=== PATIENT | male | born 1950 | race Caucasian/White ===

== ENCOUNTER 2016-09-05 14:42 | Inpatient (IN) ==
[2016-09-05 17:19] LABS: Basophils % 0.4 %; Eosinophils % 0.1 %; Hematocrit 35.8 % (37.5-50.1); Hemoglobin 11.7 g/dL (12.9-16.9); Immature Granulocytes % 0.3 % (0-4); Lymphocytes % 14.4 %; Mean Corpuscular HGB Conc 32.7 g/dL (31.6-35.5); Mean Corpuscular Hemoglobin 30.9 pg (28.0-33.3); Mean Corpuscular Volume 94.5 fL (83.0-100.0); Mean Platelet Volume 11.9 fL (9.4-12.4); Monocytes # 0.3 K/mcL (0.0-1.3); Monocytes % 4.3 %; Neutrophils # 5.7 K/mcL (1.6-8.9); Platelet Count 157 K/mcL (140-400); Red Blood Count 3.79 M/mcL (4.19-5.50); Red Cell Distribution Width 23.5 % (11.5-14.5); Segmented Neutrophils % 80.5 %
[2016-09-05 17:42] LABS: Calcium 9.9 mg/dL (8.6-10.8)
--- NOTE | 2016-09-05 17:48 | Emergency Department Note ---
Disposition Clinical Impression: End stage renal disease, Hyponatremia, Metabolic acidosis Fluid overload Qualifiers: Hypervolemia type: other Qualified Code(s): E87.79 - Other fluid overload Disposition: Admitted As Inpatient Condition: Good Time of Disposition: 18:42 General Adult HPI - General Chief complaint: ED Shortness of Breath/Dyspnea Stated complaint: Edema legs,groin swelling,CARY Time Seen by Provider: 09/05/16 16:29 Source: patient Limitations: no limitations Nursing Notes Reviewed: Yes Vital Signs Reviewed: Yes - History of Present Illness HPI Narrative: 65-year-old male with a history of stage IV CKD, chronic metabolic acidosis, hypertension, COPD presents to the ED with a chief complaint of lower extremity swelling. He states this has been progressive over the last week. 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 He denies any pain in the legs only swelling. No history of DVT or PE. He denies any history of CAD or congestive heart failure. He denies any chest pain or shortness of breath. Denies any abdominal pain, nausea or vomiting. He has been urinating/ making urine. Denies any dysuria. Denies any lightheadedness or syncope. Denies any numbness, tingling or weakness. Pain Scale: 1 - Related Data Home Medications Medication Instructions Recorded Confirmed Guaifenesin [Mucinex] 600 mg PO 1-2XD PRN 10/07/15 09/05/16 Multivitamin [Multi-Day Vitamins] 1 tab PO DAILY 10/08/15 09/05/16 Acetaminophen [Tylenol] 650 mg PO Q6HR PRN 09/05/16 09/05/16 Amlodipine Besylate 10 mg PO DAILY PRN 09/05/16 09/05/16 Ipratropium/Albuterol Neb [Duoneb] 3 ml IH Q8HR PRN 09/05/16 09/05/16 Iron Polysaccharide Complex [Pro 180 mg PO BID 09/05/16 09/05/16 Fe] Loratadine [Claritin] 10 mg PO DAILY 09/05/16 09/05/16 Potassium Chloride [K-Tab ER] 20 meq PO BID 09/05/16 09/05/16 Ranitidine HCl [Zantac] 150 mg PO HS 09/05/16 09/05/16 Sodium Chloride 1 gm PO TID 09/05/16 09/05/16 Previous Rx's Medication Instructions Recorded Calcium Acetate [Phos-LO] 667 mg PO TIDWM 30 Days 10/16/15 Sodium Bicarbonate 650 mg PO BID 30 Days 10/16/15 Allopurinol [Zyloprim 100 MG] 100 mg PO DAILY #30 tablet 10/20/15 Cholecalciferol (D-3) [Vitamin D] 2,000 unit PO DAILY tablet 10/20/15 Folic Acid 1 mg PO DAILY tablet 10/20/15 Allergies Allergy/AdvReac Type Severity Reaction Status Date / Time codeine Allergy Hives Verified 10/07/15 05:44 Penicillins Allergy Hives Verified 10/07/15 05:44 All systems ED: reviewed and negative except as stated. Constitutional: Denies: fever Cardiovascular: Denies: chest pain, dyspnea on exertion Respiratory: Denies: cough, dyspnea Gastrointestinal: Denies: abdominal pain, nausea, vomiting Musculoskeletal: Denies: back pain Neurological: Denies: headache, weakness, numbness Past Medical History - Past Medical History Medical history: Reports: COPD, hypertension, renal disease, other Surgical history: Reports: no surgical history Psychiatric history: Reports: no psych history - Social History Smoking Status: Current every day smoker Smokeless Tobacco Status: No Alcohol use: Reports: heavy, recent Drug use: Reports: none Physical Exam General: Appears well, alert and oriented x 3 Cardiovascular: Regular rate and rhythm. S1, S2. No murmurs, rubs or gallops. Respiratory: Mild expiratory rhonchi but no S2 or distress. No wheezing Abdomen: Soft, nontender. No edema or swelling. Eyes: Conjunctiva clear HENT: No oral mucosal lesions. Moist mucous membranes Neuro: Alert and oriented 3, symmetric strength and sensation in lower extremities Musculoskeletal: No joint swelling Skin: No lesions. No diaphoresis. Normal turgor. Normal color Extremities: Bilateral lower extremity edema from the knee down. He has good capillary refill and pulses distally. He has no calf tenderness or asymmetry. There is no redness or signs of infection Psych: Appropriate - General Limitations: no limitations General appearance: alert, in no apparent distress Course Course Narrative: Presents to the emergency Department. Lower extremity edema. He essentially has no other symptoms above the waist such as chest pain or shortness of breath. No history of heart disease he has stage IV chronic kidney disease with recurrent hyponatremia and metabolic acidosis. On exam he has bilateral lower extremity edema, no rest for distress. Chest x-ray is clear and does not suggest failure nor does his history. He has worsening renal failure with a creatinine of 6.2 and a GFR of 11 which is as worse as it has ever been. I suspect fluid overload due to worsening renal failure. 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 Plan to admit the patient to the hospital for possible dialysis. He also has an elevated troponin at 0.18 which is difficult to interpret in the face of worsening renal failure. He denies any chest pain EKG shows sinus tachycardia with a rate of [address] depression in V5 and V6 but not significant. He has some Q waves in the anterior septal leads which do appear new. - Reevaluation(s) Reevaluation #1: Discussed with the on-call hospitalist, Rosa who accepts for admission no orders at this time Vital Signs Temperature 97.5 F L 09/05/16 14:44 Pulse Rate 113 09/05/16 14:44 Respiratory Rate 20 09/05/16 14:44 Blood Pressure 115/75 09/05/16 14:44 O2 Sat by Pulse Oximetry 100 09/05/16 14:44 Temperature 97.5 F L 09/05/16 14:44 Pulse Rate 102 09/05/16 18:29 Respiratory Rate 20 09/05/16 18:29 Blood Pressure 110/71 09/05/16 18:29 O2 Sat by Pulse Oximetry 95 09/05/16 18:29 Oxygen Delivery Oxygen Delivery Room Air Medical Decision Making - Lab Data Result diagrams: 09/05/16 16:54 09/05/16 16:54 Lab Results 09/05/16 09/05/16 09/05/16 Range/Units 16:54 16:54 16:54 WBC 7.1 (4.3-11.1) K/mcL RBC 3.79 L (4.19-5.50) M/mcL Hgb 11.7 L (12.9-16.9) g/dL Hct 35.8 L (37.5-50.1) % MCV 94.5 (83.0-100.0) fL MCH 30.9 (28.0-33.3) pg MCHC 32.7 (31.6-35.5) g/dL RDW 23.5 H (11.5-14.5) % Plt Count 157 (140-400) K/mcL MPV 11.9 (9.4-12.4) fL Immature Gran % 0.3 (0-4) % Seg Neutrophils % 80.5 % Lymphocytes % 14.4 % Monocytes % 4.3 % Eosinophils % 0.1 % Basophils % 0.4 % Neutrophils # 5.7 (1.6-8.9) K/mcL Lymphocytes # 1.0 (0.6-4.6) K/mcL Monocytes # 0.3 (0.0-1.3) K/mcL Eosinophils # 0.0 (0.0-0.6) K/mcL Basophils # 0.0 (0.0-0.2) K/mcL Platelet Estimate Normal (Normal) Anisocytosis 2+ A (Not Present) Sodium 130 L (136-145) mEq/L Potassium 4.0 (3.5-4.5) mEq/L Chloride 89 L (98-109) mEq/L Carbon Dioxide 16 L (19-29) mEq/L BUN 135 H (8-26) mg/dL Creatinine 6.22 H (0.72-1.25) mg/dL Est GFR ( Amer) 11 L (> 60) Est GFR (Non-Af Amer) 9 L (> 60) BUN/Creatinine Ratio 22 (6-26) Glucose 121 H (70-99) mg/dL Calculated Osmolality 315 H (280-300) Calcium 9.9 (8.6-10.8) mg/dL Troponin I 0.18 H* (0-0.03) ng/mL B-Natriuretic Peptide (0-100) pg/mL 09/05/16 Range/Units 16:54 WBC (4.3-11.1) K/mcL RBC (4.19-5.50) M/mcL Hgb (12.9-16.9) g/dL Hct (37.5-50.1) % MCV (83.0-100.0) fL MCH (28.0-33.3) pg MCHC (31.6-35.5) g/dL RDW (11.5-14.5) % Plt Count (140-400) K/mcL MPV (9.4-12.4) fL Immature Gran % (0-4) % Seg Neutrophils % % Lymphocytes % % Monocytes % % Eosinophils % % Basophils % % Neutrophils # (1.6-8.9) K/mcL Lymphocytes # (0.6-4.6) K/mcL Monocytes # (0.0-1.3) K/mcL Eosinophils # (0.0-0.6) K/mcL Basophils # (0.0-0.2) K/mcL Platelet Estimate (Normal) Anisocytosis (Not Present) Sodium (136-145) mEq/L Potassium (3.5-4.5) mEq/L Chloride (98-109) mEq/L Carbon Dioxide (19-29) mEq/L BUN (8-26) mg/dL Creatinine (0.72-1.25) mg/dL Est GFR ( Amer) (> 60) Est GFR (Non-Af Amer) (> 60) BUN/Creatinine Ratio (6-26) Glucose (70-99) mg/dL Calculated Osmolality (280-300) Calcium (8.6-10.8) mg/dL Troponin I (0-0.03) ng/mL B-Natriuretic Peptide > 5000 H (0-100) pg/mL Attestation Statement - Attestation Attestation: I examined this patient and my medical decision-making was reviewed with the VEGETABLE TIER/PA/Advanced Practice Nurse/Resident Physician. I agree with the documented findings, disposition and treatment plan as described except to the extent set forth below. 65-year-old male presents ED because of increasing swelling of her lower extremities. He has advancing renal failure and followed by Dr. Hobson. Over the recently he has had increasing swelling of his lower extremities that has become more painful. He also complains of generalized fatigue. No fevers. No chest pain. Mild exertional dyspnea. No productive cough. No abdominal pain. Pleasant male in no apparent distress. Oropharynx clear. Neck is supple. Chest is clear to auscultation bilaterally. Abdomen soft nondistended nontender. Extremities with 2+ any edema. Review function has further deteriorated. He has a serum bicarbonate of 16 consistent with metabolic acidosis. Spoke with Dr. Hobson and he requests the patient be admitted to the hospital for dialysis.
[2016-09-05 17:50] LABS: Anisocytosis 2+ (Not Present); Platelet Estimate Normal (Normal)
--- NOTE | 2016-09-05 19:07 | Internal Med History&Physical ---
Date of Encounter: 09/05/16 Time of Encounter: 19:07 Assessment and Plan (1) Acute worsening of stage 4 chronic kidney disease Current visit: Yes Status: Acute patient with a history of CKD stage 4 with average creatinine of 3.5 presents with worsening swelling with possible anasarca in the setting o doubling of his baseline creatinine, his equipment processor has been consulted for the possibility of dialysis inpatient, we will avoid nephrotoxins, renally dose all medications, follow BMP, will do a trial of diuresis meanwhile, we will also check an echo for LVEF and valvular architecture (2) HTN (hypertension) Current visit: Yes Status: Chronic hx of HTN on amlodipine, we will continue this medication with BP monitoring Qualifiers: Hypertension type: essential hypertension Qualified Code(s): I10 - Essential (primary) hypertension (3) COPD (chronic obstructive pulmonary disease) Current visit: Yes Status: Chronic stable, will do inhalers and nebs Qualifiers: COPD type: chronic bronchitis Chronic bronchitis type: simple Qualified Code(s): J41.0 - Simple chronic bronchitis (4) GERD (gastroesophageal reflux disease) Current visit: Yes Status: Chronic will continue ranitidine Qualifiers: Esophagitis presence: without esophagitis Qualified Code(s): K21.9 - Gastro -esophageal reflux disease without esophagitis Internal Medicine - H&P: HPI Chief complaint: lower extremity swelling Admitted From: Emergency Dept Plans for Post Hospital Care: Home History of present illness: Mr. Delcid is a 65 year old male with a history of CKD stage [address] Pierre's group comes in with worsening lower extremity swelling. He was in his usual state of health until about a week ago when he began to have lower extremity swelling that has been progressive, his leg feels heavy and in addition he has dyspnea and dyspnea on exertion. He also reports cough productive of clear sputum. His is sometimes unable to lie down flat at night and when he does so he keeps coughing. He reports poor appetite and reduced exercise tolerance alongside fatigue. He called his equipment processor's office today about the swelling which has involved his scrotal sac and penis and they could not get him in so they asked him to come to the ER. In the ER lab work showed worsened renal function. His last equipment processor visit was in July and they had discussed the possibility of dialysis in the near future but no AVF has been created yet. He denies fever, chills, occasional nausea but no vomiting. PAST MEDICAL HISTORY: Tobacco dependency, hypertension, arthritis, stage 4 CKD as of 2010 chronic obstructive pulmonary disease. 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 carotid stenosis s/p surgery SOCIAL HISTORY: He is , smokes about 1/2 ppd now, used to smoke 1ppd for >20 years. Drinks alcohol occasionally. Denies any illicit drug use. FAMILY HISTORY: father is and he does not know about his medical conditions, mother is still alive but he does not know about her medical conditions Past Med Surg Social Fam HX - Past Medical History Medical history: COPD, hypertension, renal disease, other Psychiatric history: no psych history - Past Surgical History Surgical History: no surgical history - Social History Smoking Status: Current every day smoker Smokeless Tobacco Status: No Alcohol use: heavy, recent Drug use: none Internal Medicine - H&P: Meds Guaifenesin [Mucinex] 600 mg PO 1-2XD PRN 10/07/15 [History] Multivitamin [Multi-Day Vitamins] 1 tab PO DAILY 10/08/15 [History] Calcium Acetate [Phos-LO] 667 mg PO TIDWM 30 Days 10/16/15 [Rx] Sodium Bicarbonate 650 mg PO BID 30 Days 10/16/15 [Rx] Allopurinol [Zyloprim 100 MG] 100 mg PO DAILY #30 tablet 10/20/15 [Rx] Cholecalciferol (D-3) [Vitamin D] 2,000 unit PO DAILY tablet 10/20/15 [Rx] Folic Acid 1 mg PO DAILY tablet 10/20/15 [Rx] Acetaminophen [Tylenol] 650 mg PO Q6HR PRN 09/05/16 [History] Amlodipine Besylate 10 mg PO DAILY PRN 09/05/16 [History] Ipratropium/Albuterol Neb [Duoneb] 3 ml IH Q8HR PRN 09/05/16 [History] Iron Polysaccharide Complex [Pro Fe] 180 mg PO BID 09/05/16 [History] Loratadine [Claritin] 10 mg PO DAILY 09/05/16 [History] Potassium Chloride [K-Tab ER] 20 meq PO BID 09/05/16 [History] Ranitidine HCl [Zantac] 150 mg PO HS 09/05/16 [History] Sodium Chloride 1 gm PO TID 09/05/16 [History] Allergies codeine Allergy (Verified 10/07/15 05:44) Hives Penicillins Allergy (Verified 10/07/15 05:44) Hives All Systems PM: A 10-system review of systems was performed and is negative for pertinent findings except as documented above in the HPI. - Constitutional Vitals: Temp Pulse Resp BP Pulse Ox 97.5 F L 102 18 110/71 95 09/05/16 14:44 09/05/16 18:29 09/05/16 18:50 09/05/16 18:50 09/05/16 18:29 General: Appears well, alert and oriented x 3 HEENT: NC, AT, YAZMIN, EOMI, normal conjunctiva, No oral mucosal lesions. Moist mucous membranes Cardiovascular: Regular rate and rhythm. S1, S2. No murmurs, rubs or gallops. Respiratory: Mild expiratory rhonchi but no S2 or distress. No wheezing Abdomen: Soft, nontender. scrotal and penal edema noted, no masses palpable Neuro: Alert and oriented 3, CN 2-12 grossly intact, non focal motor or sensory exam Musculoskeletal: No joint swelling Skin: No lesions. No diaphoresis. Normal turgor. Normal color Extremities: Bilateral lower extremity pitting edema from the knee down. He has good capillary refill and pulses distally. He has no calf tenderness or asymmetry. There is no redness or signs of infection Psych: Appropriate Internal Med - H&P Results - Labs CBC & Chem 7: 09/05/16 16:54 09/05/16 16:54 - Diagnostic Studies Chest x-ray Status: image reviewed by me
[2016-09-05] MEDS ORDERED: Naloxone 0.4 MG/ML INJ IVP PRN (19:15)
[2016-09-05] MEDS ORDERED: amLODIPine 5 MG TABLET PO PRN (19:17)
[2016-09-05] MEDS ORDERED: Albuterol 2.5 MG/3 ML NEBULIZER IH PRN (19:45)
[2016-09-05] MEDS: Famotidine 20 MG TABLET PO SCH (20:58)
[2016-09-05] MEDS: (Iron Polysaccharide Complex [Pro Fe] 180 MG) PO SCH (21:26)
[2016-09-05] MEDS: GuaiFENesin Liq 200 MG/10 ML UDC PO PRN (21:45)
[2016-09-06 02:53] LABS: Bilirubin,Urine Negative (Negative); Blood,Urine Moderate (Negative); Clarity,Urine Clear (Clear); Color,Urine Yellow (Yellow); Glucose,Urine (UA) Normal (Normal); Ketones,Urine Negative (Negative); Leukocyte Esterase,Urine Negative (Negative); Nitrite,Urine Negative (Negative); PH,Urine 5.5 pH Units (5.0-8.0); Protein,Urine 100 mg/dL (Neg-Trace); Specific Gravity,Urine 1.017 (1.010-1.025); Urobilinogen,Urine Normal (Normal)
[2016-09-06 02:54] LABS: Bacteria,Urine None Seen per hpf (None-Few); Hyaline Casts,Urine None Seen per lpf (None-Few); Squamous Epithelial Cell,Urine Moderate per lpf (None-Few); WBC,Urine 0-3 per hpf (0-3)
[2016-09-06 05:23] LABS: Calcium 9.6 mg/dL (8.6-10.8); Magnesium 2.4 mg/dL (1.6-2.6); Potassium 4.4 mEq/L (3.5-4.5)
[2016-09-06] MEDS ORDERED: *HR* Heparin 5,000 UNIT/ML VIAL SQ SCH (06:00)
[2016-09-06] MEDS: GuaiFENesin Liq 200 MG/10 ML UDC PO PRN ×2 (06:16→17:29)
[2016-09-06] MEDS ORDERED: Albumin 25% 12.5gm/50mL 12.5 GM/50 ML IV.SOLN IVPB PRN (07:19)
[2016-09-06] MEDS ORDERED: 0.9 % Sodium Chloride 250 ML IVC PRN (07:19)
[2016-09-06] MEDS: Calcium Acetate 667 MG CAPSULE PO SCH ×3 (07:40→17:29)
[2016-09-06] MEDS: Cholecalciferol (D-3) 1,000 UNIT TABLET PO SCH (07:49)
[2016-09-06] MEDS: Multivit/Ca/Min/Fe/FA 1 TAB TABLET PO SCH (07:49)
[2016-09-06] MEDS: Folic Acid 1 MG TABLET PO SCH (07:50)
[2016-09-06] MEDS: (Iron Polysaccharide Complex [Pro Fe] 180 MG) PO SCH (07:50)
[2016-09-06 08:32] LABS: INR 1.7; Prothrombin Time 18.5 Seconds (9.4-12.1)
[2016-09-06] MEDS ORDERED: Loratadine 10 MG TABLET PO SCH (09:00)
--- NOTE | 2016-09-06 10:18 | Nephrology Consult Note ---
Date of Encounter: 09/06/16 Time of Encounter: 07:00 Assessment and Plan (1) End stage renal disease Current Visit: Yes Status: Acute Will declare him ESRD at this point given that he has steadily worsened/ progressed from CKD stage IV to V and now with overt renal failure. I've personally contacted IR early this AM to help arrange for a Permacath and also will have the pt start HD today for both clearance and fluid removal as well as correction of the chronic metabolic acidosis and hyponatremia. Will no use HD to manage his acidosis and hyponatremia, so I'm stopping the sodium bicarb and NaCl. Next HD is planned for Friday to target more fluid removal. Arrange an outpt HD chair Continue to follow a renal protective strategy as able. Thank you for consulting the [facility] group. Will follow you. (2) Fluid overload Current Visit: Yes Status: Acute Fluid removal with HD today and tomorrow. Will monitor his BPs while on HD, which could pose a risk for intradialytic hypotension. Qualifiers: Hypervolemia type: other Qualified Code(s): E87.79 - Other fluid overload (3) Hyponatremia Current Visit: Yes Status: Acute Hypervolemic hyponatremia. Fluid overload. Check Echo. (4) Metabolic acidosis Current Visit: Yes Status: Acute Hx of chronic nonanion gap metabolic acidosis. See above (5) HTN (hypertension) Current Visit: Yes Status: Chronic Qualifiers: Hypertension type: essential hypertension Qualified Code(s): I10 - Essential (primary) hypertension (6) Anemia Current Visit: No Status: Acute Goal Hgb is 10-11. May need to add IV iron and/or EPO at some point. Qualifiers: Anemia type: unspecified type Qualified Code(s): D64.9 - Anemia, unspecified History of Present Illness - Reason for Consult Consult date: 09/06/16 Acute Kidney Injury, Chronic Kidney Disease, end stage renal disease Requesting physician: Dennys Bach - Chief Complaint Worsened edema, fatigue and progression to ESRD - History of Present Illness Sreekanth Delcid is a very pleasant 65 y/o WM gentleman with a pmh of progressively declining CKD stage IV to V, HTN, proteinuria, chronic metabolic acidosis, hyponatremia, and et al who presented with worsening fatigue, anasarca and findings of worsened renal failure. He said the onset of symptoms started about 1 week ago. 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 He gave consent to proceed with a dialysis catheter today. He affirmed having a diminished appetite, mild nausea but on CP, abd pain , renal stones, flank pain or overt dysuria. He affirmed worsened edema, scrotal swelling and fatigue. Past Med Surg Social Fam HX - Past Medical History Medical history: COPD, hypertension, renal disease, other Psychiatric history: no psych history - Past Surgical History Surgical History: no surgical history - Social History Smoking Status: Current every day smoker Packs per day: 0.25 Smokeless Tobacco Status: No Alcohol use: heavy, recent Drug use: none Medications and Allergies Guaifenesin [Mucinex] 600 mg PO 1-2XD PRN 10/07/15 [History] Multivitamin [Multi-Day Vitamins] 1 tab PO DAILY 10/08/15 [History] Calcium Acetate [Phos-LO] 667 mg PO TIDWM 30 Days 10/16/15 [Rx] Sodium Bicarbonate 650 mg PO BID 30 Days 10/16/15 [Rx] Allopurinol [Zyloprim 100 MG] 100 mg PO DAILY #30 tablet 10/20/15 [Rx] Cholecalciferol (D-3) [Vitamin D] 2,000 unit PO DAILY tablet 10/20/15 [Rx] Folic Acid 1 mg PO DAILY tablet 10/20/15 [Rx] Acetaminophen [Tylenol] 650 mg PO Q6HR PRN 09/05/16 [History] Amlodipine Besylate 10 mg PO DAILY PRN 09/05/16 [History] Ipratropium/Albuterol Neb [Duoneb] 3 ml IH Q8HR PRN 09/05/16 [History] Iron Polysaccharide Complex [Pro Fe] 180 mg PO BID 09/05/16 [History] Loratadine [Claritin] 10 mg PO DAILY 09/05/16 [History] Potassium Chloride [K-Tab ER] 20 meq PO BID 09/05/16 [History] Ranitidine HCl [Zantac] 150 mg PO HS 09/05/16 [History] Sodium Chloride 1 gm PO TID 09/05/16 [History] Allergies codeine Allergy (Verified 10/07/15 05:44) Hives Penicillins Allergy (Verified 10/07/15 05:44) Hives Review of Systems All Systems: reviewed and no additional remarkable complaints except as stated Exam - Vital Signs Vital signs: Initial Vital Signs Temp Pulse Resp BP Pulse Ox 97.5 F L 113 20 115/75 100 09/05/16 14:44 09/05/16 14:44 09/05/16 14:44 09/05/16 14:44 09/05/16 14:44 Vital Signs - Last 8 Hours Temp Pulse Resp BP Pulse Ox 09/06/16 07:04 97.3 F L 97 16 102/66 97 09/06/16 03:25 97.3 F L 100 16 112/74 97 Intake and Output 09/05/16 09/06/16 09/06/16 23:59 07:59 15:59 Intake Total 800 / 800 Output Total 0 / 0 150 / 150 Balance 800 / 800 -150 / -150 Intake: Oral 800 / 800 Output: Urine 0 / 0 150 / 150 Other: Meal npo Percent of Meal Consumed 0% - General Appearance General appearance: well-developed, well-nourished, appears started age EENT: ATNC, PERRL, mucous membranes moist Neck: JVD, supple Respiratory: course breath sounds Cardiology: edema (pitting edema up to thighs b/l), regular rate, regular rhythm , normal S1, normal S2 Gastrointestinal: normoactive bowel sounds, no tenderness, no guarding Integumentary: no rash, warm and dry Neurologic: no focal deficit, no asterixis, alert and oriented x3 Musculoskeletal: no deformities, no erythema, no cyanosis Psychiatric: mood/affect appropriate, cooperative Results - Lab Results 09/06/16 12:58 09/06/16 04:25 Most recent lab results Calcium 9.6 mg/dL (8.6-10.8) 09/06/16 04:25 Phosphorus 7.0 mg/dL (2.3-4.7) H 09/06/16 04:25 Magnesium 2.4 mg/dL (1.6-2.6) 09/06/16 04:25 I reviewed the above data valdivia. Consult Discharge Plan - Plan Referrals: Prakash Couch DO [Primary Care Provider] - 09/12/16 3:20 pm (Please follow up as schedule...)
[2016-09-06] MEDS ORDERED: Heparin 1,000 UNITS/500 mL NS 500 ML ONE ×2 (10:37→13:49)
[2016-09-06] MEDS ORDERED: *HR* Heparin 5,000 UNIT/ML VIAL IVP PRN ×2 (12:23)
[2016-09-06] MEDS ORDERED: *HR* Heparin 5,000 UNIT/ML VIAL IVP ONE (12:23)
[2016-09-06 12:34] LABS: Hepatitis B Surface Antibody 0.28 mIU/mL; Hepatitis B Surface Antigen Nonreactive (Nonreactive)
--- NOTE | 2016-09-06 12:35 | ECHO - Doppler Report ---
Echocardiogram Name: Sreekanth Delcid Date of Study: 09/06/2016 Date: 1950 Ht: 74.0 in Medical Record#: [id number] Age: 65 Wt: 204.0 lb Gender: Male BSA: 2.19 Order #: [id number] Location: [facility] Room #: 2A25 Reading Physician: Tyrone Rashid DO, FACC, SHAYY [employer] Lab Supervisor: YUDY BradfordT, RUST Ordering Physician: Dennys Bach MD Primary Physician: None Indications: LVEF, Valves Impressions: LVEF 10-15%. Mildly dilated left ventricle. Severe global left ventricular systolic dysfunction. Indeterminate diastolic function. Echodensity in the LV apex suspicious for thrombus. Patient declined Definity contrast. Moderately dilated right ventricle with moderately reduced function. Severely dilated left atrium. Severely dilated right atrium. Mild aortic regurgitation. No evidence of pulmonary hypertension identified. RVSP could be underestimated. Dr. Layton notified of findings via [employer]. Left Ventricular Wall Motion: Rest Echo Findings The apex, apical inferior, mid inferior, basal inferior, apical anterior, mid anterior, basal anterior, apical septal, mid inferior septal, basal inferior septal, apical lateral, mid anterior lateral, basal anterior lateral, mid anterior septal, mid inferior lateral, basal anterior septal and basal inferior lateral george were hypokinetic. Findings: Study Quality * Technically adequate exam. ECG Findings * Normal sinus rhythm. Left Ventricle * LVEF 10-15%. * Mildly dilated left ventricle. * Severe global left ventricular systolic dysfunction. * Indeterminate diastolic function. * Echodensity in the LV apex suspicious for thrombus. Patient declined Definity contrast. Right Ventricle * Moderately dilated right ventricle with moderately reduced function. Left Atrium * Severely dilated left atrium. Right Atrium * Severely dilated right atrium. Interatrial Septum * No evidence of PFO by color Doppler. Aortic Valve * Trileaflet aortic valve. * Mildly calcified aortic valve leaflets. * Mild aortic regurgitation. * No aortic stenosis. Mitral Valve * Mildly thickened mitral valve leaflets. * Trace mitral regurgitation. * No mitral stenosis. Tricuspid Valve * Normal tricuspid valve structure and function. * Trace tricuspid regurgitation. * No evidence of pulmonary hypertension identified. RVSP could be underestimated. Pulmonic Valve * Normal pulmonic valve structure and function. * Trace pulmonic regurgitation. Aorta * Normally sized aortic root. Pericardium * The pericardium appears normal. IVC * Normal IVC dimensions and inspiratory collapse. Pulmonary Artery * Normal visualized portions of the main pulmonary artery. History Hypertension Measurements: BP: 102/ 66 2D Normal Values RVIDd: 4.40 cm <2.7 cm IVSd: 1.10 cm 0.6 - 1.0 cm LVIDd: 5.80 cm 3.7 - 5.6 cm LVPWd: .90 cm 0.6 - 1.1 cm LVIDs: 5.00 cm 1.5 - 3.6 cm AO: 2.70 cm < 4.0 cm LA: 4.70 cm 2.0 - 4.0cm %FS: 13.80 cm >25 % LA volume: 100 Mitral Valve Dec Time:215.00 msec Peak E:.83 m/sec Peak A:.36 m/sec E/A Ratio:2.3 Peak E' Lat Alberto:8.68 cm/s Peak E' Med Alberto:5.65 cm/s E/E' Lat Ratio:9.5 E/E' Med Ratio:14.6 Aortic Valve AI pressure Half-time: 475.00 msec Tricuspid Valve TV Regurg Peak Grad: 25.00mmHg TV Regurg Peak Alberto: 2.51m/sec Updated by Tyrone Rashid DO, FACArjun, MIC LUCAS on 09/06/2016 12:29:21 PM electronically signed on 09/06/2016 12:31:30 PM with status of Final Wall Motion Dao: 1=Normal, 2=Hypokinesis, 3=Akinesis, 4=Dyskinesis, 5=Aneurysmal, 6=Hyperkinetic, X=Not Visualized (Blank)=Missing
--- NOTE | 2016-09-06 13:27 | Electrocardiograph Report ---
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
[2016-09-06 13:44] LABS: Hematocrit 34.4 % (37.5-50.1); Hemoglobin 11.3 g/dL (12.9-16.9); Mean Corpuscular HGB Conc 32.8 g/dL (31.6-35.5); Mean Corpuscular Volume 94.2 fL (83.0-100.0); Mean Platelet Volume 12.3 fL (9.4-12.4); Platelet Count 132 K/mcL (140-400); Red Blood Count 3.65 M/mcL (4.19-5.50); Red Cell Distribution Width 23.3 % (11.5-14.5)
[2016-09-06 13:46] LABS: INR 1.7; Prothrombin Time 18.7 Seconds (9.4-12.1)
[2016-09-06 13:49] LABS: Activated Partial Thrombo Time 32.9 Seconds (26.0-36.0)
--- NOTE | 2016-09-06 14:12 | IR Procedure Note ---
Date of procedure: 09/06/16 Consent Obtained: Written consent Timeout: Correct patient and procedure verified, Time out performed, Skin prep completed Local anesthetic: Lidocaine 1% Indications: CRF w/ elevated INR Procedure Performed: Temp dialysis catheter placement Results/Findings: RIJ 12F 20 cm temp dialysis catheter placement Complications: None; Tolerated procedure well (Monitor on floor)
[2016-09-06] MEDS ORDERED: 0.9 % Sodium Chloride 2,000 ML ONE (15:02)
[2016-09-06] MEDS: Heparin 25,000 UNIT/500 ML D5W 25,000 UNIT/500 ML MLS IVC SCH (15:06)
--- NOTE | 2016-09-06 15:06 | Internal Med Progress Note ---
Date of Encounter: 09/06/16 Time of Encounter: 13:00 - Assessment and plan (1) LV (left ventricular) mural thrombus Current Visit: Yes Status: Acute Assessment and plan: echo noted, possible lv thrombus, will start heparin drip, d/w patient. (2) Systolic heart failure Current Visit: Yes Status: Acute Assessment and plan: no history of heart disease, severe systolic dysfunction and esrd, no cosmo inh at this point, will gt cardiology input. Qualifiers: Heart failure chronicity: chronic Qualified Code(s): I50.22 - Chronic systolic (congestive) heart failure (3) End stage renal disease Current Visit: Yes Status: Acute Assessment and plan: hd acccess and hd as per nephro. (4) Fluid overload Current Visit: Yes Status: Acute Assessment and plan: hd as per nepho, Qualifiers: Hypervolemia type: other Qualified Code(s): E87.79 - Other fluid overload (5) Metabolic acidosis Current Visit: Yes Status: Acute (6) COPD (chronic obstructive pulmonary disease) Current Visit: Yes Status: Chronic Qualifiers: COPD type: chronic bronchitis Chronic bronchitis type: simple Qualified Code(s): J41.0 - Simple chronic bronchitis (7) HTN (hypertension) Current Visit: Yes Status: Chronic Qualifiers: Hypertension type: essential hypertension Qualified Code(s): I10 - Essential (primary) hypertension (8) Anemia Current Visit: No Status: Acute Qualifiers: Anemia type: unspecified type Qualified Code(s): D64.9 - Anemia, unspecified - Subjective Interval history: 1st encounter, weakness, edema lower extrmeities, denies sob during this encounter. was concerned about fluid overload. - Constitutional Vitals: Temp Pulse Resp BP Pulse Ox 97.3 F L 84 20 117/85 99 09/06/16 07:04 09/06/16 11:48 09/06/16 11:48 09/06/16 11:48 09/06/16 11:48 General appearance: Present: A&O X 3, morbidly obese, no acute distress - Head Head exam: Present: atraumatic, normocephalic - Eye Eye exam: Present: PERRL, conjuntiva pink, sclera anicteric Pupils: Present: PERRL - Neck Neck exam general surgery: Present: supple, trachea midline. Absent: lymphadenopathy - Respiratory Respiratory exam: Present: CTAB. Absent: accessory muscle use, rales, rhonchi, wheezes - Cardiovascular Cardiovascular exam: Present: RRR, +S1, +S2. Absent: diastolic murmur, gallop, rubs, systolic murmur - GI/Abdominal GI/Abdominal exam: Present: normal bowel sounds, soft, no peritoneal signs. Absent: distended, tenderness - Extremities Exam Extremities exam: Present: pedal edema, warm, radial pulses palpable and symetrical. Absent: calf tenderness, cyanotic Additional comments: ++/+++ - Neurological Exam Neurological exam: Present: CN II-XII intact, oriented X3, no focal deficits. Absent: pronater drift, facial droop, speech deficit - Skin Skin exam: Present: dry, intact Internal Medicine: Result - Labs CBC & Chem 7: 09/06/16 12:58 09/06/16 04:25 Labs: Short CBC 09/06/16 Range/Units 12:58 WBC 7.1 (4.3-11.1) K/mcL Hgb 11.3 L (12.9-16.9) g/dL Hct 34.4 L (37.5-50.1) % Plt Count 132 L (140-400) K/mcL BMP 09/06/16 04:25 Sodium 132 L Potassium 4.4 Chloride 92 L Carbon Dioxide 18 L BUN 144 H Creatinine 6.33 H Glucose 104 H Calcium 9.6 Cardiac Enzymes 09/06/16 Range/Units 04:25 Troponin I 0.19 H* (0-0.03) ng/mL Urine 09/06/16 Range/Units 02:35 Urine Color Yellow (Yellow) Urine Clarity Clear (Clear) Urine pH 5.5 (5.0-8.0) pH Units Ur Specific [place] 1.017 (1.010-1.025) Urine Protein 100 H (Neg-Trace) mg/dL Urine Glucose (UA) Normal (Normal) mg/dL - ABG Interpretation ABG results: PT/INR, D-dimer PT 18.7 Seconds (9.4-12.1) H 09/06/16 12:58 Consult Discharge Plan - Plan Referrals: Prakash Couch DO [Primary Care Provider] - 09/12/16 3:20 pm (Please follow up as schedule...)
[2016-09-06] MEDS ORDERED: *HR* Heparin 10,000 UNIT/10 ML VIAL IV PRN (15:52)
[2016-09-06] MEDS: Acetaminophen 325 MG TABLET PO PRN (17:34)
[2016-09-06] MEDS: Famotidine 20 MG TABLET PO SCH (20:04)
[2016-09-06 21:37] LABS: Activated Partial Thrombo Time 132.1 Seconds (26.0-36.0)
[2016-09-06 22:06] LABS: Heparin anti-factor XA UFH 0.33 IU/mL (0.30-0.70)
[2016-09-07 04:16] LABS: Eosinophils % 1.2 %
[2016-09-07 04:18] LABS: Basophils # 0.1 K/mcL (0.0-0.2); Basophils % 1.1 %; Eosinophils # 0.1 K/mcL (0.0-0.6); Hematocrit 31.1 % (37.5-50.1); Hemoglobin 10.4 g/dL (12.9-16.9); Immature Granulocytes % 0.3 % (0-4); Immature Platelets 9.3 % (1.1-6.1); Lymphocytes # 1.5 K/mcL (0.6-4.6); Lymphocytes % 21.9 %; Mean Corpuscular HGB Conc 33.4 g/dL (31.6-35.5); Mean Corpuscular Hemoglobin 31.2 pg (28.0-33.3); Mean Corpuscular Volume 93.4 fL (83.0-100.0); Mean Platelet Volume 11.9 fL (9.4-12.4); Monocytes # 0.4 K/mcL (0.0-1.3); Monocytes % 6.5 %; Neutrophils # 4.6 K/mcL (1.6-8.9); Nucleated Red Blood Cells 0.5 /100 WBC (0); Red Blood Count 3.33 M/mcL (4.19-5.50)
[2016-09-07 04:19] LABS: INR 1.7; Prothrombin Time 19.1 Seconds (9.4-12.1)
[2016-09-07 04:27] LABS: Activated Partial Thrombo Time 111.4 Seconds (26.0-36.0)
[2016-09-07 04:30] LABS: Calcium 8.6 mg/dL (8.6-10.8); Phosphorous 5.7 mg/dL (2.3-4.7); Potassium 3.7 mEq/L (3.5-4.5)
[2016-09-07 04:33] LABS: Heparin anti-factor XA UFH 0.28 IU/mL (0.30-0.70)
[2016-09-07 04:48] LABS: Platelet Count 97 K/mcL (140-400)
[2016-09-07 04:51] LABS: Anisocytosis 2+ (Not Present); Burr Cells 1+ (Not Present); Large Platelets Present (Not Present); Platelet Estimate Decreased (Normal); Poikilocytosis 2+ (Not Present); Polychromasia 1+ (Not Present)
[2016-09-07] MEDS ORDERED: 0.9 % Sodium Chloride 250 ML IVC PRN (05:58)
[2016-09-07] MEDS ORDERED: Albumin 25% 12.5gm/50mL 12.5 GM/50 ML IV.SOLN IVPB PRN (05:58)
[2016-09-07] MEDS: Folic Acid 1 MG TABLET PO SCH (06:13)
[2016-09-07] MEDS: Cholecalciferol (D-3) 1,000 UNIT TABLET PO SCH (06:14)
[2016-09-07] MEDS: Multivit/Ca/Min/Fe/FA 1 TAB TABLET PO SCH (06:14)
[2016-09-07] MEDS: Heparin 25,000 UNIT/500 ML D5W 25,000 UNIT/500 ML MLS IVC SCH ×2 (08:12→18:16)
[2016-09-07] MEDS: Calcium Acetate 667 MG CAPSULE PO SCH ×3 (08:12→17:15)
--- NOTE | 2016-09-07 09:34 | Cardiology Consult Note ---
Date of Encounter: 09/07/16 Time of Encounter: 07:30 Assessment and Plan (1) Systolic heart failure Current Visit: Yes Status: Acute Newly diagnosed systolic CHF, chronicity and etiology unclear. Denies hx of CAD , CHF or cardiac issues. TTE 09/06/16: LVEF 10-15%, mildly dilated LV, severe global LV systolic dysfunction, moderately dilated RV with moderate reduction in function, severe dilated left and right atrium, mild AR. Dyspnea/edema have improved s/p HD; continues to have +2 BLE edema. Recommend ischemic evaluation prior to discharge, tentatively on Friday. Continue to have orthopnea--plan for HD today. Will start low dose betablocker, Toprol XL today. Recommend ACEi/ARB by discharge if okay by Nephrology. Will continue to follow. Qualifiers: Heart failure chronicity: unspecified heart failure chronicity Qualified Code(s): I50.20 - Unspecified systolic (congestive) heart failure (2) LV (left ventricular) mural thrombus Current Visit: Yes Status: Acute Echodensity in LV apex suspicious for thrombus. Continue IV heparin gtt; monitor H/H and PLT closely. Recommend long-term anticoagulation with Coumadin, will wait to start to determine if further testing/procedures needed--LHC, dialysis cath placement. (3) End stage renal disease Current Visit: Yes Status: Acute Started HD on 09/06/16 with 2.1 liter fluid removal. Plan for repeat HD today. Mgmt per Nephrology. Discussion w patient/family: The assessment and plan as outlined above was discussed with the patient and/or family members who expressed understanding and agreement. All questions were answered. Thank you for involving us in the care of your patient. Please call with any questions. The patient will be discussed and reviewed with Dr. Mayuri David; changes to be made accordingly. History of Present Illness Consult date: 09/07/16 Requesting physician: Julian Layton Consult reason: LV thrombus, cardiomyopathy Chief complaint: Edema, shortness of breath History of present illness: Mr. Delcid is a 65 year old male with PMH significant for CKD, HTN, tobacco use and carotid disease s/p L CEA who presented to [facility] ED with 7-10 day history of worsening bilateral lower extremity/scrotal edema and shortness of breath with exertion. At that time, he contacted Dr. Langley who recommended inpatient evaluation given his worsening CKD IV. He was started on HD yesterday (2.1 L fluid removal); he states edema and dyspnea have improved. Cardiolog consulted for abnormal echocardiogram--LVEF 10-15% with probable LV thrombus. He denies history of CHF or CAD; reports stress test years ago and was reportedly normal; denies chest pain or discomfort. Past Med Surg Social Fam HX - Past Medical History Attestation: Yes The following information was validated with the patient. Source: patient Medical history: COPD, hypertension, peripheral artery disease (carotid disease) , renal disease Psychiatric history: no psych history - Past Surgical History Surgical History: carotid endarterectomy (left) - Social History Smoking Status: Current every day smoker Packs per day: 5-8 cigarettes x45 years Smokeless Tobacco Status: No Alcohol use: heavy, recent Drug use: none Medications and Allergies Guaifenesin [Mucinex] 600 mg PO 1-2XD PRN 10/07/15 [History] Multivitamin [Multi-Day Vitamins] 1 tab PO DAILY 10/08/15 [History] Calcium Acetate [Phos-LO] 667 mg PO TIDWM 30 Days 10/16/15 [Rx] Sodium Bicarbonate 650 mg PO BID 30 Days 10/16/15 [Rx] Allopurinol [Zyloprim 100 MG] 100 mg PO DAILY #30 tablet 10/20/15 [Rx] Cholecalciferol (D-3) [Vitamin D] 2,000 unit PO DAILY tablet 10/20/15 [Rx] Folic Acid 1 mg PO DAILY tablet 10/20/15 [Rx] Acetaminophen [Tylenol] 650 mg PO Q6HR PRN 09/05/16 [History] Amlodipine Besylate 10 mg PO DAILY PRN 09/05/16 [History] Ipratropium/Albuterol Neb [Duoneb] 3 ml IH Q8HR PRN 09/05/16 [History] Iron Polysaccharide Complex [Pro Fe] 180 mg PO BID 09/05/16 [History] Loratadine [Claritin] 10 mg PO DAILY 09/05/16 [History] Potassium Chloride [K-Tab ER] 20 meq PO BID 09/05/16 [History] Ranitidine HCl [Zantac] 150 mg PO HS 09/05/16 [History] Sodium Chloride 1 gm PO TID 09/05/16 [History] Allergies codeine Allergy (Verified 10/07/15 05:44) Hives Penicillins Allergy (Verified 10/07/15 05:44) Hives All Systems Review: A 10-system review of systems was performed and is negative for pertinent findings except as documented above in the HPI. - Cardiovascular Cardiovascular: as per HPI Physical Examination Vital Signs, Last 4 Hours Pulse Resp BP 09/07/16 08:03 102 18 101/71 General: Conversant, No Apparent Distress HEENT: Atraumatic, Normocephaly Cardiac: Reg Rate and Rhythm, Normal S1 and S2 Lungs: Other (Bibasilar rales) Neuro: Alert and responsive Abdomen: Soft Skin: No rashes noted on visualized skin, Other (right IJ temp dialysis cath) Musculoskeletal: No Chest Wall Tenderness Extremities: Other (BLE edema, +2 to knees) Results 09/07/16 03:55 09/07/16 03:55 Lab Results 09/07/16 09/07/16 09/07/16 03:55 03:55 03:55 WBC 6.6 Hgb 10.4 L Hct 31.1 L Plt Count 97 L INR APTT Sodium 134 L Potassium 3.7 Chloride 95 L Carbon Dioxide 19 BUN 111 H Creatinine 5.37 H Glucose 83 Calcium 8.6 B-Natriuretic Peptide > 5000 H Active Medications Acetaminophen (Tylenol) 650 mg PO Q6HR PRN PRN Reason: Pain Stop: 03/07/17 19:18 Last Admin: 09/06/16 17:34 Dose: 650 mg Albuterol/Ipratropium (Duoneb) 3 ml IH [id number] PRN; Protocol PRN Reason: Shortness Of Breath/Wheezing Stop: 03/08/17 10:25 Allopurinol (Zyloprim) 100 mg PO DAILY IMTIAZ Stop: 03/08/17 09:01 Last Admin: 09/07/16 06:14 Dose: 100 mg Calcium Acetate (Phos-Lo) 667 mg PO TIDWM IMTIAZ Stop: 03/08/17 08:01 Last Admin: 09/07/16 08:12 Dose: 667 mg Famotidine (Pepcid) 20 mg PO HS IMTIAZ Stop: 03/07/17 21:01 Last Admin: 09/06/16 20:04 Dose: 20 mg Folic Acid (Folic Acid) 1 mg PO DAILY IMTIAZ Stop: 03/08/17 09:01 Last Admin: 09/07/16 06:13 Dose: 1 mg Guaifenesin (Robitussin Liq) 200 mg PO Q6HR PRN PRN Reason: Cough Stop: 03/07/17 21:31 Last Admin: 09/06/16 17:29 Dose: 200 mg Guaifenesin (Robitussin/Dm) 5 ml PO Q6HR PRN PRN Reason: Cough Stop: 03/09/17 08:49 Last Admin: 09/07/16 09:19 Dose: 5 ml Heparin Sodium (Porcine) (Heparin) 6,500 unit 70 unit/kg (6500 unit) IVP Q6HR PRN PRN Reason: SEE COMMENTS Stop: 03/08/17 12:24 Heparin Sodium (Porcine) (Heparin) 3,200 unit 35 unit/kg (3200 unit) IVP Q6H PRN PRN Reason: SEE COMMENTS Stop: 03/08/17 12:24 Heparin Sodium/Dextrose (Heparin 25,000 Unit/500 Ml D5w) 25,000 unit in 500 mls @ 25.909 mls/hr IVC .[id number] IMTIAZ; 14 UNIT/KG/HR PRN Reason: Protocol Stop: 03/08/17 12:31 Last Admin: 09/07/16 08:12 Dose: Not Given Sodium Chloride (0.9 % Sodium Chloride) 250 mls @ 937.5 mls/hr IVC .Q16M PRN PRN Reason: Hypotension Stop: 03/09/17 05:59 Albumin Human (Flexbumin) 12.5 gm in 50 mls @ 60 mls/hr IVPB ONCE PRN PRN Reason: Hypotension Stop: 03/09/17 05:59 Multivitamins/Calcium (Thera M Plus) 1 tab PO DAILY IMTIAZ Stop: 03/08/17 09:01 Last Admin: 09/07/16 06:14 Dose: 1 tab Naloxone HCl (Narcan) 0.4 mg IVP Q2MIN PRN PRN Reason: Opioid Reversal Stop: 03/07/17 19:16 Vitamin D (Vitamin D) 1,000 unit PO DAILY IMTIAZ Stop: 03/08/17 09:01 Last Admin: 09/07/16 06:14 Dose: 1,000 unit - Imaging and Cardiology Echo: report reviewed Other Results: 12 hour tele: avg HR=95 SR. No significant event noted. - EKG Interpretation EKG results cardiology: personally reviewed Consult Discharge Plan - Plan Referrals: Prakash Couch DO [Primary Care Provider] - 09/12/16 3:20 pm (Please follow up as schedule...)
--- NOTE | 2016-09-07 10:39 | Internal Med Progress Note ---
Date of Encounter: 09/07/16 Time of Encounter: 10:34 - Assessment and plan (1) LV (left ventricular) mural thrombus Current Visit: Yes Status: Acute Assessment and plan: echo noted, possible lv thrombus, will start continue with drip, d/w patient. (2) Systolic heart failure Current Visit: Yes Status: Acute Assessment and plan: no history of heart disease, severe systolic dysfunction and esrd, no cosmo inh at this point, follow cardiology input, willl need workup including lhc. Qualifiers: Heart failure chronicity: unspecified heart failure chronicity Qualified Code(s): I50.20 - Unspecified systolic (congestive) heart failure (3) End stage renal disease Current Visit: Yes Status: Acute Assessment and plan: hd acccess placed yesterday, continue with hd as per nephro. (4) Fluid overload Current Visit: Yes Status: Acute Qualifiers: Hypervolemia type: other Qualified Code(s): E87.79 - Other fluid overload (5) Metabolic acidosis Current Visit: Yes Status: Acute (6) COPD (chronic obstructive pulmonary disease) Current Visit: Yes Status: Chronic Qualifiers: COPD type: chronic bronchitis Chronic bronchitis type: simple Qualified Code(s): J41.0 - Simple chronic bronchitis (7) HTN (hypertension) Current Visit: Yes Status: Chronic Qualifiers: Hypertension type: essential hypertension Qualified Code(s): I10 - Essential (primary) hypertension (8) Anemia Current Visit: No Status: Acute Qualifiers: Anemia type: unspecified type Qualified Code(s): D64.9 - Anemia, unspecified - Subjective Interval history: seen while having hd, weakness, edema lower extrmeities, denies sob during this encounter. was concerned about fluid overload. - Constitutional Vitals: Temp Pulse Resp BP Pulse Ox 97.4 F L 102 18 101/71 97 09/07/16 00:02 09/07/16 08:03 09/07/16 08:03 09/07/16 08:03 09/07/16 03:32 General appearance: Present: A&O X 3, no acute distress - Head Head exam: Present: atraumatic, normocephalic - Eye Eye exam: Present: PERRL, conjuntiva pink, sclera anicteric Pupils: Present: PERRL - Neck Neck exam general surgery: Present: supple, trachea midline. Absent: lymphadenopathy - Respiratory Respiratory exam: Present: CTAB. Absent: accessory muscle use, rales, rhonchi, wheezes - Cardiovascular Cardiovascular exam: Present: RRR, +S1, +S2. Absent: diastolic murmur, gallop, rubs, systolic murmur - GI/Abdominal GI/Abdominal exam: Present: normal bowel sounds, soft, no peritoneal signs. Absent: distended, tenderness - Extremities Exam Extremities exam: Present: pedal edema, warm, radial pulses palpable and symetrical. Absent: calf tenderness, cyanotic - Neurological Exam Neurological exam: Present: CN II-XII intact, oriented X3, no focal deficits. Absent: pronater drift, facial droop, speech deficit - Skin Skin exam: Present: dry, intact Internal Medicine: Result - Labs CBC & Chem 7: 09/07/16 03:55 09/07/16 03:55 Labs: Short CBC 09/06/16 09/07/16 Range/Units 12:58 03:55 WBC 7.1 6.6 (4.3-11.1) K/mcL Hgb 11.3 L 10.4 L (12.9-16.9) g/dL Hct 34.4 L 31.1 L (37.5-50.1) % Plt Count 132 L 97 L (140-400) K/mcL Neutrophils # 4.6 (1.6-8.9) K/mcL BMP 09/07/16 03:55 Sodium 134 L Potassium 3.7 Chloride 95 L Carbon Dioxide 19 BUN 111 H Creatinine 5.37 H Glucose 83 Calcium 8.6 - ABG Interpretation ABG results: PT/INR, D-dimer PT 19.1 Seconds (9.4-12.1) H 09/07/16 03:55 - Impressions Impressions Guidance Needle Placement Ultrasound 09/06/16 00:00 IMPRESSION: 1. Right internal jugular vein temporary dialysis catheter placement as discussed above. D/ / Giuseppe Chow MD / Giuseppe Chow MD Interpreting Provider: Giuseppe Chow MD Insertion Tunneled Catheter 09/06/16 00:00 IMPRESSION: 1. Right internal jugular vein temporary dialysis catheter placement as discussed above. D/ / Giuseppe Chow MD / Giuseppe Chow MD Interpreting Provider: Giuseppe Chow MD Consult Discharge Plan - Plan Referrals: Prakash Couch DO [Primary Care Provider] - 09/12/16 3:20 pm (Please follow up as schedule...)
[2016-09-07] MEDS ORDERED: *HR* Heparin 10,000 UNIT/10 ML VIAL IV PRN (11:38)
[2016-09-07] MEDS ORDERED: 0.9 % Sodium Chloride 2,000 ML ONE (12:00)
[2016-09-07] MEDS: Metoprolol XL (24 HR) Succ 25 MG TAB.ER.24H PO SCH (14:30)
--- NOTE | 2016-09-07 16:02 | Nephrology Progress Note ---
Date of Encounter: 09/07/16 Time of Encounter: 13:45 - Assessment and Plan (1) End stage renal disease Current Visit: Yes Status: Acute ESRD s/p RIJ temporary HD catheter. Completed 2 back to back HD treatments. Next HD is tentatively planned for Friday. He will need a SW consult to help with obtaining a Dialysis Chair time. He will also need a Permacath placed before being placed on an oral anticoagulant. Continue to follow a renal protective strategy as able. Now that the pt has been started on HD, I do agree with Cardiology that the pt should have a [facility] d/ t the findings of the reduced LVEF. (2) Fluid overload Current Visit: Yes Status: Acute Improving with HD. Qualifiers: Hypervolemia type: other Qualified Code(s): E87.79 - Other fluid overload (3) Hyponatremia Current Visit: Yes Status: Chronic Improving with HD. (4) Metabolic acidosis Current Visit: Yes Status: Chronic Improving with HD. (5) HTN (hypertension) Current Visit: Yes Status: Chronic Stable. Qualifiers: Hypertension type: essential hypertension Qualified Code(s): I10 - Essential (primary) hypertension (6) Anemia Current Visit: No Status: Acute Goal Hgb is 10-11 in the setting of ESRD. Will provide IV iron and/or EPO as needed. Qualifiers: Anemia type: unspecified type Qualified Code(s): D64.9 - Anemia, unspecified (7) Sinus pressure Current Visit: Yes Status: Acute He reported having sinus pressure affecting both ears, he said for about 2 weeks. He asked me to provide a nasal antihistamine. Subjective Principal diagnosis: HTN, DAH Interval history: Pt was s/e earlier today. He did not affirm N/V/D. He did not affirm any cramping with the dialysis earlier today. His was at the bedside. I answered all their questions about chronic dialysis. Objective - Vital Signs Vital signs: Vital Signs Temp Pulse Resp BP Pulse Ox 09/07/16 15:23 97.4 F L 91 17 110/74 97 09/07/16 12:20 97.3 F L 16 110/75 09/07/16 12:15 110/75 09/07/16 12:00 107/83 09/07/16 11:45 102/78 09/07/16 11:30 112/74 09/07/16 11:15 101/69 09/07/16 11:00 102/79 09/07/16 10:45 113/82 09/07/16 10:30 119/81 09/07/16 10:15 113/82 09/07/16 10:00 116/72 09/07/16 09:45 97.3 F L 16 98/69 09/07/16 08:03 102 18 101/71 09/07/16 03:32 91 16 113/74 97 09/07/16 00:02 97.4 F L 93 16 102/73 93 09/06/16 19:41 97.4 F L 98 20 105/72 97 09/06/16 18:06 96.0 F L 99 16 101/70 97 09/06/16 16:35 97.3 F L 16 120/68 09/06/16 16:30 103/67 09/06/16 16:15 104/32 Intake and Output 09/07/16 09/07/16 09/07/16 07:59 15:59 23:59 Intake Total 315 / 315 1205 / 1205 Output Total 350 / 350 2350 / 2350 Balance -35 / -35 -1145 / -1145 Intake: IV Fluids 115 / 115 105 / 105 Heparin 25,000 UNIT/500 115 / 115 105 / 105 ML D5W 25,000 unit In 500 ml @ 14 UNIT/KG/HR 25. 909 mls/hr IVC .[id number] [facility] Rx#:[id number] Oral 200 / 200 500 / 500 Intake, Rinseback and 600 / 600 Flushes Output: Urine 350 / 350 0 / 0 Total Dialysis Output 2350 / 2350 Other: Meal Lunch Percent of Meal Consumed 50% Stool Size Moderate Stool Consistency soft Stool Characteristics Normal for Patient Stool Color Brown Green # Bowel Movements 1 Weight 93 kg Hemodialysis Net Fluid 1750 Removed (mL) Patient Weight 09/07/16 23:59 Weight 93 kg - General Appearance General appearance: Present: well-developed, appears started age EENT: Present: ATNC, PERRL, mucous membranes moist Neck: Present: supple Respiratory: Present: clear Cardiology: Present: edema (1-2+ pretibial pitting edema. No scrotal edema noted today), regular rate, regular rhythm, normal S1, normal S2 Dialysis Vascular Access: Venous Catheter (RIJ temporary HD catheter was C/D/I) Gastrointestinal: Present: normoactive bowel sounds, no tenderness, no guarding Integumentary: Present: no rash, warm and dry Neurologic: Present: no focal deficit, no asterixis, alert and oriented x3 Musculoskeletal: Present: no deformities, no clubbing Psychiatric: Present: mood/affect appropriate, cooperative - Lab 09/07/16 03:55 09/07/16 03:55 Most recent lab results Calcium 8.6 mg/dL (8.6-10.8) 09/07/16 03:55 Phosphorus 5.7 mg/dL (2.3-4.7) H 09/07/16 03:55 Magnesium 2.4 mg/dL (1.6-2.6) 09/06/16 04:25 Consult Discharge Plan - Plan Referrals: Prakash Couch DO [Primary Care Provider] - 09/12/16 3:20 pm (Please follow up as schedule...)
[2016-09-07] MEDS: Fluticasone Propionate Nasal 50 MCG/SPRAY BOTTLE NS SCH (17:24)
[2016-09-07] MEDS: Famotidine 20 MG TABLET PO SCH (20:52)
[2016-09-08 04:03] LABS: Eosinophils % 1.1 %; Immature Granulocytes % 0.3 % (0-4)
[2016-09-08 04:05] LABS: Basophils % 0.6 %; Eosinophils # 0.1 K/mcL (0.0-0.6); Hemoglobin 10.4 g/dL (12.9-16.9); Immature Platelets 11.4 % (1.1-6.1); Lymphocytes # 1.4 K/mcL (0.6-4.6); Lymphocytes % 21.7 %; Mean Corpuscular HGB Conc 32.5 g/dL (31.6-35.5); Mean Corpuscular Hemoglobin 31.2 pg (28.0-33.3); Mean Corpuscular Volume 96.1 fL (83.0-100.0); Mean Platelet Volume 12.5 fL (9.4-12.4); Monocytes # 0.5 K/mcL (0.0-1.3); Monocytes % 7.1 %; Neutrophils # 4.4 K/mcL (1.6-8.9); Nucleated Red Blood Cells 0.3 /100 WBC (0); Red Blood Count 3.33 M/mcL (4.19-5.50); Red Cell Distribution Width 24.6 % (11.5-14.5); Segmented Neutrophils % 69.2 %
[2016-09-08 04:08] LABS: Platelet Count 71 K/mcL (140-400)
[2016-09-08 04:17] LABS: Calcium 8.4 mg/dL (8.6-10.8); Potassium 3.5 mEq/L (3.5-4.5)
[2016-09-08 04:37] LABS: Anisocytosis 2+ (Not Present); Macrocytosis Present (Not Present); Microcytosis Present (Not Present); Polychromasia 1+ (Not Present)
[2016-09-08 04:39] LABS: Hypochromasia Present (Not Present); Large Platelets Present (Not Present); Platelet Estimate Decreased (Normal); Poikilocytosis 1+ (Not Present)
[2016-09-08] MEDS: Heparin 25,000 UNIT/500 ML D5W 25,000 UNIT/500 ML MLS IVC SCH (07:28)
[2016-09-08] MEDS: Multivit/Ca/Min/Fe/FA 1 TAB TABLET PO SCH (07:28)
[2016-09-08] MEDS: Cholecalciferol (D-3) 1,000 UNIT TABLET PO SCH (07:29)
[2016-09-08] MEDS: Folic Acid 1 MG TABLET PO SCH (07:29)
[2016-09-08] MEDS: Acetaminophen 325 MG TABLET PO PRN ×3 (07:29→22:36)
[2016-09-08] MEDS: Calcium Acetate 667 MG CAPSULE PO SCH ×3 (07:29→17:12)
[2016-09-08] MEDS: Fluticasone Propionate Nasal 50 MCG/SPRAY BOTTLE NS SCH (07:30)
--- NOTE | 2016-09-08 08:37 | Nephrology Progress Note ---
Date of Encounter: 09/08/16 Time of Encounter: 09:30 - Assessment and Plan (1) End stage renal disease Current Visit: Yes Status: Acute Plan for the next HD tomorrow. ESRD s/p RIJ temporary HD catheter. Completed 2 back to back HD treatments. Next HD is tentatively planned for Friday. He will need a SW consult to help with obtaining a Dialysis Chair time. He will also need a Permacath placed before being placed on an oral anticoagulant. Continue to follow a renal protective strategy as able. Now that the pt has been started on HD, I do agree with Cardiology that the pt should have a [facility] d/ t the findings of the reduced LVEF. (2) Fluid overload Current Visit: Yes Status: Acute Improving with HD. Qualifiers: Hypervolemia type: other Qualified Code(s): E87.79 - Other fluid overload (3) Hyponatremia Current Visit: Yes Status: Chronic Improving with HD. (4) Metabolic acidosis Current Visit: Yes Status: Chronic Improving with HD. (5) HTN (hypertension) Current Visit: Yes Status: Chronic Stable. Qualifiers: Hypertension type: essential hypertension Qualified Code(s): I10 - Essential (primary) hypertension (6) Anemia Current Visit: No Status: Acute Goal Hgb is 10-11 in the setting of ESRD. Will provide IV iron and/or EPO as needed. Qualifiers: Anemia type: unspecified type Qualified Code(s): D64.9 - Anemia, unspecified (7) Sinus pressure Current Visit: Yes Status: Acute He reported having sinus pressure affecting both ears, he said for about 2 weeks. On Friday, he asked me to provide a nasal antihistamine. Subjective Principal diagnosis: HTN, DAH Interval history: Pt was s/e earlier today. He did not affirm N/V/D. We discussed his labs, and plans for a Permacath when able. Objective - Vital Signs Vital signs: Vital Signs Temp Pulse Resp BP Pulse Ox 09/08/16 07:50 98.2 F 84 16 83/61 95 09/08/16 04:17 97.4 F L 88 16 97/66 97 09/07/16 23:03 97.5 F L 86 16 92/62 92 09/07/16 18:33 88 16 93/65 94 09/07/16 15:23 97.4 F L 91 17 110/74 97 09/07/16 12:20 97.3 F L 16 110/75 09/07/16 12:15 110/75 09/07/16 12:00 107/83 09/07/16 11:45 102/78 09/07/16 11:30 112/74 09/07/16 11:15 101/69 09/07/16 11:00 102/79 09/07/16 10:45 113/82 09/07/16 10:30 119/81 09/07/16 10:15 113/82 09/07/16 10:00 116/72 09/07/16 09:45 97.3 F L 16 98/69 Intake and Output 09/07/16 09/08/16 09/08/16 23:59 07:59 15:59 Intake Total 100 / 100 0 / 0 Output Total 0 / 0 Balance 100 / 100 0 / 0 Intake: IV Fluids 100 / 100 Heparin 25,000 UNIT/500 100 / 100 ML D5W 25,000 unit In 500 ml @ 14 UNIT/KG/HR 25. 909 mls/hr IVC .[id number] [facility] Rx#:[id number] Oral 0 / 0 0 / 0 Output: Urine 0 / 0 Other: Meal Dinner Percent of Meal Consumed 50% Weight 84.323 kg Patient Weight 09/08/16 23:59 Weight 84.323 kg - General Appearance General appearance: Present: well-developed, well-nourished, appears started age EENT: Present: ATNC, PERRL, mucous membranes moist Neck: Present: supple Respiratory: Present: clear Cardiology: Present: edema, regular rate, regular rhythm, normal S1, normal S2 Dialysis Vascular Access: Venous Catheter (Temporary HD catheter, C/D/I) Gastrointestinal: Present: normoactive bowel sounds, no tenderness, no guarding Integumentary: Present: no rash, warm and dry Neurologic: Present: no focal deficit, no asterixis, alert and oriented x3 Musculoskeletal: Present: no deformities, no erythema, no cyanosis Psychiatric: Present: mood/affect appropriate, cooperative - Lab 09/08/16 03:46 09/08/16 03:46 Most recent lab results Calcium 8.4 mg/dL (8.6-10.8) L 09/08/16 03:46 Phosphorus 5.7 mg/dL (2.3-4.7) H 09/07/16 03:55 Magnesium 2.4 mg/dL (1.6-2.6) 09/06/16 04:25 Consult Discharge Plan - Plan Referrals: Prakash Couch DO [Primary Care Provider] - 09/12/16 3:20 pm (Please follow up as schedule...)
--- NOTE | 2016-09-08 09:11 | Cardiology Progress Note ---
Date of Encounter: 09/08/16 Time of Encounter: 07:45 Assessment and Plan (1) Systolic heart failure Current Visit: Yes Status: Acute Newly diagnosed systolic CHF, chronicity and etiology unclear. Denies hx of CAD , CHF or cardiac issues. TTE 09/06/16: LVEF 10-15%, mildly dilated LV, severe global LV systolic dysfunction, moderately dilated RV with moderate reduction in function, severe dilated left and right atrium, mild AR. Dyspnea/edema have improved s/p HD; continues to have +2 BLE edema. Recommend ischemic evaluation prior to discharge, plan for tomorrow (Friday) if able to lay flat. Will make NPO after MN tonight. Alternatives, risks, and benefits discussed, he is agreeable to proceed. s/p x2 HD (Friday and Friday) with >4 L fluid removal. Weight is down 8.2 kg from admission. Continue Toprol XL 12.5 mg daily, hold for SBP less than 100 or HR less than 60. Recommend ACEi/ARB by discharge if okay by Nephrology and if BP will tolerate. Will continue to follow. Qualifiers: Heart failure chronicity: unspecified heart failure chronicity Qualified Code(s): I50.20 - Unspecified systolic (congestive) heart failure (2) LV (left ventricular) mural thrombus Current Visit: Yes Status: Acute Echodensity in LV apex suspicious for thrombus. Continue IV heparin gtt; monitor H/H and PLT closely. Recommend long-term anticoagulation with Coumadin, will wait to start to determine if further testing/procedures needed--LHC, dialysis cath placement. (3) End stage renal disease Current Visit: Yes Status: Acute Started on HD 09/06/16. Plan for HD on Friday. Discussion w patient/family: The assessment and plan as outlined above was discussed with the patient and/or family members who expressed understanding and agreement. All questions were answered. Thank you for involving us in the care of your patient. Please call with any questions. The patient will be discussed and reviewed with Dr. Severiano David; changes to be made accordingly. Subjective Principal diagnosis: HTN, DAH Interval history: Seen and examined. He is sitting up eating breakfast, states he feels much better today. HD yesterday with 2350 mL fluid removal, weight is down 8.2 kg from admission. BLE/scrotal edema has improved. Denies chest pain or discomfort. Objective Vital Signs, Last 4 Hours Temp Pulse Resp BP Pulse Ox 09/08/16 07:50 98.2 F 84 16 83/61 95 General: Conversant, No Apparent Distress HEENT: Atraumatic, Normocephaly, Mucus Membranes Moist Cardiac: Reg Rate and Rhythm, Normal S1 and S2 Lungs: Other (Expiratory wheezes throughout) Neuro: Alert and responsive Abdomen: Soft, Non-Tender Skin: No rashes noted on visualized skin, Other (right IJ temp dialysis cath) Musculoskeletal: No Chest Wall Tenderness Extremities: Other (+2 BLE to knees) Results 09/08/16 03:46 09/08/16 03:46 Lab Results 09/07/16 09/07/16 09/08/16 11:00 15:05 03:46 WBC 6.3 Hgb 10.4 L Hct 32.0 L Plt Count 71 L APTT 66.3 H 62.6 H Sodium Potassium Chloride Carbon Dioxide BUN Creatinine Glucose Calcium 09/08/16 03:46 WBC Hgb Hct Plt Count APTT Sodium 135 L Potassium 3.5 Chloride 94 L Carbon Dioxide 24 BUN 73 H D Creatinine 4.89 H Glucose 96 Calcium 8.4 L Consult Discharge Plan - Plan Referrals: Prakash Couch DO [Primary Care Provider] - 09/12/16 3:20 pm (Please follow up as schedule...)
[2016-09-08] MEDS: Metoprolol XL (24 HR) Succ 25 MG TAB.ER.24H PO SCH (10:24)
--- NOTE | 2016-09-08 13:02 | Internal Med Progress Note ---
Date of Encounter: 09/08/16 Time of Encounter: 11:00 - Assessment and plan (1) LV (left ventricular) mural thrombus Current Visit: Yes Status: Acute Assessment and plan: echo noted, possible lv thrombus, will continue with heparin drip in anticipation of left heart catheterization tomorrow in a.m. d/w patient. Patient will benefit from long-term and the correlation with Coumadin, we will start by mouth anticoagulation after procedures. Patient will also need access for long-term dialysis. (2) Systolic heart failure Current Visit: Yes Status: Acute Assessment and plan: no history of heart disease, severe systolic dysfunction and esrd, on beta blockers, blood pressure in the lower side, no cosmo inh at this point, follow cardiology input, willl need workup including lhc, plan to do cardiac catheter tomorrow.. Qualifiers: Heart failure chronicity: unspecified heart failure chronicity Qualified Code(s): I50.20 - Unspecified systolic (congestive) heart failure (3) End stage renal disease Current Visit: Yes Status: Acute Assessment and plan: Temporary hd acccess placed, continue with hd as per nephro, patient will need permanent catheter placement, we will defer initiation of long-term antipronation after permanent catheter has been placed, in the meantime, we will continue with heparin drip. (4) Fluid overload Current Visit: Yes Status: Acute Qualifiers: Hypervolemia type: other Qualified Code(s): E87.79 - Other fluid overload (5) Metabolic acidosis Current Visit: Yes Status: Chronic (6) COPD (chronic obstructive pulmonary disease) Current Visit: Yes Status: Chronic Qualifiers: COPD type: chronic bronchitis Chronic bronchitis type: simple Qualified Code(s): J41.0 - Simple chronic bronchitis (7) HTN (hypertension) Current Visit: Yes Status: Chronic Qualifiers: Hypertension type: essential hypertension Qualified Code(s): I10 - Essential (primary) hypertension (8) Anemia Current Visit: No Status: Acute Qualifiers: Anemia type: unspecified type Qualified Code(s): D64.9 - Anemia, unspecified - Subjective Interval history: no shortness of breaht, still weakness, edema lower extrmeities, denies sob during this encounter. - Constitutional Vitals: Temp Pulse Resp BP Pulse Ox 97.6 F 78 18 86/60 94 09/08/16 11:25 09/08/16 11:25 09/08/16 11:25 09/08/16 11:25 09/08/16 11:25 General appearance: Present: A&O X 3, no acute distress - Head Head exam: Present: atraumatic, normocephalic - Eye Eye exam: Present: PERRL, conjuntiva pink, sclera anicteric Pupils: Present: PERRL - Neck Neck exam general surgery: Present: supple, trachea midline. Absent: lymphadenopathy - Respiratory Respiratory exam: Present: CTAB. Absent: accessory muscle use, rales, rhonchi, wheezes - Cardiovascular Cardiovascular exam: Present: RRR, +S1, +S2. Absent: diastolic murmur, gallop, rubs, systolic murmur - GI/Abdominal GI/Abdominal exam: Present: normal bowel sounds, soft, no peritoneal signs. Absent: distended, tenderness - Extremities Exam Extremities exam: Present: pedal edema, warm, radial pulses palpable and symetrical. Absent: calf tenderness, cyanotic - Neurological Exam Neurological exam: Present: CN II-XII intact, oriented X3, no focal deficits. Absent: pronater drift, facial droop, speech deficit - Skin Skin exam: Present: dry, intact Internal Medicine: Result - Labs CBC & Chem 7: 09/08/16 03:46 09/08/16 03:46 Labs: Short CBC 09/08/16 Range/Units 03:46 WBC 6.3 (4.3-11.1) K/mcL Hgb 10.4 L (12.9-16.9) g/dL Hct 32.0 L (37.5-50.1) % Plt Count 71 L (140-400) K/mcL Neutrophils # 4.4 (1.6-8.9) K/mcL BMP 09/08/16 03:46 Sodium 135 L Potassium 3.5 Chloride 94 L Carbon Dioxide 24 BUN 73 H D Creatinine 4.89 H Glucose 96 Calcium 8.4 L - ABG Interpretation ABG results: PT/INR, D-dimer PT 19.1 Seconds (9.4-12.1) H 09/07/16 03:55 Consult Discharge Plan - Plan Referrals: Prakash Couch DO [Primary Care Provider] - 09/12/16 3:20 pm (Please follow up as schedule...)
[2016-09-08] MEDS: Nicotine 21 MG PATCH.TD24 TD SCH (16:25)
[2016-09-08] MEDS: Famotidine 20 MG TABLET PO SCH (20:01)
[2016-09-09 04:51] LABS: Basophils # 0.1 K/mcL (0.0-0.2); Basophils % 0.9 %; Eosinophils # 0.1 K/mcL (0.0-0.6); Eosinophils % 1.4 %; Hematocrit 30.7 % (37.5-50.1); Hemoglobin 10.2 g/dL (12.9-16.9); Immature Granulocytes % 0.3 % (0-4); Immature Platelets 11.9 % (1.1-6.1); Lymphocytes % 21.8 %; Mean Corpuscular HGB Conc 33.2 g/dL (31.6-35.5); Mean Corpuscular Hemoglobin 31.6 pg (28.0-33.3); Mean Platelet Volume 13.1 fL (9.4-12.4); Monocytes # 0.5 K/mcL (0.0-1.3); Monocytes % 8.7 %; Neutrophils # 3.8 K/mcL (1.6-8.9); Nucleated Red Blood Cells 0.3 /100 WBC (0); Red Blood Count 3.23 M/mcL (4.19-5.50); Red Cell Distribution Width 24.9 % (11.5-14.5); Segmented Neutrophils % 66.9 %
[2016-09-09 05:09] LABS: Lymphocytes # 1.2 K/mcL (0.6-4.6); Platelet Count 64 K/mcL (140-400)
[2016-09-09 05:10] LABS: Calcium 8.1 mg/dL (8.6-10.8); Potassium 3.5 mEq/L (3.5-4.5)
[2016-09-09 05:11] LABS: Anisocytosis 3+ (Not Present); Macrocytosis Present (Not Present); Platelet Estimate Decreased (Normal)
[2016-09-09] MEDS: Calcium Acetate 667 MG CAPSULE PO SCH ×3 (07:32→21:46)
[2016-09-09] MEDS ORDERED: 0.9 % Sodium Chloride 250 ML IVC PRN (07:50)
[2016-09-09] MEDS ORDERED: Albumin 25% 12.5gm/50mL 12.5 GM/50 ML IV.SOLN IVPB PRN (07:50)
[2016-09-09] MEDS: Fluticasone Propionate Nasal 50 MCG/SPRAY BOTTLE NS SCH (08:17)
[2016-09-09] MEDS: Multivit/Ca/Min/Fe/FA 1 TAB TABLET PO SCH (08:18)
[2016-09-09] MEDS: Folic Acid 1 MG TABLET PO SCH (08:18)
[2016-09-09] MEDS: Cholecalciferol (D-3) 1,000 UNIT TABLET PO SCH (08:18)
[2016-09-09] MEDS: Metoprolol XL (24 HR) Succ 25 MG TAB.ER.24H PO SCH (08:19)
[2016-09-09] MEDS: Heparin 25,000 UNIT/500 ML D5W 25,000 UNIT/500 ML MLS IVC SCH (08:22)
--- NOTE | 2016-09-09 09:09 | Nephrology Progress Note ---
Date of Encounter: 09/10/16 Time of Encounter: 08:30 - Assessment and Plan (1) End stage renal disease Current Visit: Yes Status: Acute HD today after the [facility] If logically too busy today, we can push the placement of the Permacath to tomorrow. SW to help arrange for a dialysis chair time today. He will also need a Permacath placed before being placed on an oral anticoagulant. Continue to follow a renal protective strategy as able. Now that the pt has been started on HD, I do agree with Cardiology that the pt should have a [facility] d/ t the findings of the reduced LVEF. (2) Fluid overload Current Visit: Yes Status: Acute Improving with HD. Qualifiers: Hypervolemia type: other Qualified Code(s): E87.79 - Other fluid overload (3) Hyponatremia Current Visit: Yes Status: Chronic Improving with HD. (4) Metabolic acidosis Current Visit: Yes Status: Chronic Improving with HD. (5) HTN (hypertension) Current Visit: Yes Status: Chronic Stable. Qualifiers: Hypertension type: essential hypertension Qualified Code(s): I10 - Essential (primary) hypertension (6) Anemia Current Visit: No Status: Acute Goal Hgb is 10-11 in the setting of ESRD. Will provide IV iron and/or EPO as needed. Qualifiers: Anemia type: unspecified type Qualified Code(s): D64.9 - Anemia, unspecified (7) Sinus pressure Current Visit: Yes Status: Acute He reported having sinus pressure affecting both ears, he said for about 2 weeks. On Friday, he asked me to provide a nasal antihistamine. Subjective Principal diagnosis: HTN, DAH Interval history: Pt was s/e earlier today. He did not affirm N/V/D. We discussed his labs, and plans for a Permacath when able. Objective - Vital Signs Vital signs: Vital Signs Temp Pulse Resp BP Pulse Ox 09/09/16 08:13 92 17 97/63 100 09/09/16 04:08 97.4 F L 87 16 95/64 96 09/09/16 00:10 97.3 F L 88 16 90/62 98 09/08/16 18:44 86 18 92/61 99 09/08/16 15:58 97.6 F 82 18 80/60 90 09/08/16 11:25 97.6 F 78 18 86/60 94 Intake and Output 09/08/16 09/09/16 09/09/16 23:59 07:59 15:59 Intake Total 493 / 493 80 / 80 47 / 47 Output Total 250 / 250 75 / 75 Balance 243 / 243 80 / 80 -28 / -28 Intake: IV Fluids 373 / 373 80 / 80 47 / 47 Heparin 25,000 UNIT/500 373 / 373 80 / 80 47 / 47 ML D5W 25,000 unit In 500 ml @ 14 UNIT/KG/HR 25. 909 mls/hr IVC .[id number] [facility] Rx#:[id number] Oral 120 / 120 Output: Urine 250 / 250 75 / 75 Other: Meal Dinner Percent of Meal Consumed 100% Stool Size Small Stool Consistency formed Stool Color Brown Weight 87 kg Patient Weight 09/09/16 23:59 Weight 87 kg - General Appearance General appearance: Present: well-developed, well-nourished, appears started age EENT: Present: ATNC, PERRL, mucous membranes moist Neck: Present: supple Respiratory: Present: clear Cardiology: Present: edema, regular rate, normal S1, normal S2 Gastrointestinal: Present: normoactive bowel sounds, no tenderness, no guarding Integumentary: Present: no rash, warm and dry Neurologic: Present: no focal deficit, no asterixis, alert and oriented x3 Musculoskeletal: Present: no deformities, no erythema, no cyanosis Psychiatric: Present: mood/affect appropriate, cooperative - Lab 09/09/16 04:29 09/09/16 04:29 Most recent lab results Calcium 8.1 mg/dL (8.6-10.8) L 09/09/16 04:29 Phosphorus 5.7 mg/dL (2.3-4.7) H 09/07/16 03:55 Magnesium 2.4 mg/dL (1.6-2.6) 09/06/16 04:25 Consult Discharge Plan - Plan Referrals: Prakash Couch DO [Primary Care Provider] - 09/12/16 3:20 pm (Please follow up as schedule...)
--- NOTE | 2016-09-09 09:57 | Event Note ---
Date of Encounter: 09/09/16 Time of Encounter: 09:40 - Cardiology Event Note Seen and examined. Plan for C today--re: cardiomyopathy, EF 10-15%. No hx of CAD or CHF. Patient is agreeable to proceed. Mild troponin elevation in the setting of worsening CKD-IV is non-diagnostic for ACS. Has been on heparin gtt since Friday, PLT continue to downtrend, will obtain HIT panel. Discussed with Dr. Langley, plan for HD today after [facility]. Tentative permacath insertion tomorrow. Further recommendations to follow. The patient was discussed and reviewed with Dr. Rashid who agrees with plan.
[2016-09-09] MEDS: Acetaminophen 325 MG TABLET PO PRN ×2 (10:10→21:46)
[2016-09-09] MEDS: Nicotine 21 MG PATCH.TD24 TD SCH (10:45)
[2016-09-09] MEDS ORDERED: Verapamil 5 MG/2 ML VIAL ONE (12:59)
[2016-09-09] MEDS ORDERED: 0.9 % Sodium Chloride 2,000 ML ONE ×2 (13:00→13:20)
[2016-09-09] MEDS ORDERED: Nitroglycerin 1,000 MCG/10 ML VIAL IV ONE (13:00)
[2016-09-09] MEDS ORDERED: *HR* Heparin 10,000 UNIT/10 ML VIAL ONE (13:00)
[2016-09-09] MEDS ORDERED: Heparin 1,000 UNITS/500 mL NS 500 ML ONE (13:00)
[2016-09-09] MEDS ORDERED: *HR* Heparin 10,000 UNIT/10 ML VIAL IV PRN (13:07)
[2016-09-09] MEDS ORDERED: *HR* FentaNYL (PF) 100 MCG/2 ML VIAL ONE (14:05)
[2016-09-09] MEDS ORDERED: *HR* Midazolam HCl 5 MG/5 ML VIAL IVP ONE (14:05)
--- NOTE | 2016-09-09 15:00 | Pre-Sedation Evaluation ---
Pre-sedation evaluation - Pre-sedation checklist Date of procedure: 09/09/16 Procedure: heart catherization Recent Vitals: Last Vital Signs Temp 96.4 F L 09/09/16 11:51 Pulse 104 09/09/16 11:51 Resp 16 09/09/16 11:51 BP 106/74 09/09/16 11:51 Pulse Ox 100 09/09/16 11:51 H&P (including ROS) documented in medical record: Yes Previous reaction to sedatives/anesthetics: No Dietary Status: NPO after Midnight Dentition: No loose teeth or bridges ASA Classification *see protocol: CLASS II-Mild systemic disease Plan of Care: Pt appropriate candidate for procedure/moderate/conscious sedation , Risks/benefits of procedure/sedation discussed w/ patient/family
--- NOTE | 2016-09-09 15:30 | Internal Med Progress Note ---
Date of Encounter: 09/09/16 Time of Encounter: 15:30 - Assessment and plan (1) LV (left ventricular) mural thrombus Current Visit: Yes Status: Acute Assessment and plan: echo noted, possible lv thrombus, will continue with heparin drip in anticipation of left heart catheterization today. d/w patient. Patient will benefit from long-term and the correlation with Coumadin, we will start by mouth anticoagulation after procedures. Patient will also need access for long- term dialysis. thrombocytopenia noted, trending down since admission started on heparin drip , it had already drop prior to heparin drip, however drop is 50% since friday , will get hemaotlogy consult. (2) Systolic heart failure Current Visit: Yes Status: Acute Assessment and plan: no history of heart disease, severe systolic dysfunction and esrd, on beta blockers, blood pressure in the lower side, no cosmo inh at this point, follow cardiology input, [facility] today, will follow. Qualifiers: Heart failure chronicity: unspecified heart failure chronicity Qualified Code(s): I50.20 - Unspecified systolic (congestive) heart failure (3) End stage renal disease Current Visit: Yes Status: Acute Assessment and plan: Temporary hd acccess placed, continue with hd as per nephro, patient will need permanent catheter placement, we will defer initiation of long-term AC after permanent catheter has been placed, in the meantime, we will continue with heparin drip and get hem onc in light of low platelet count. (4) Fluid overload Current Visit: Yes Status: Acute Qualifiers: Hypervolemia type: other Qualified Code(s): E87.79 - Other fluid overload (5) Metabolic acidosis Current Visit: Yes Status: Chronic (6) COPD (chronic obstructive pulmonary disease) Current Visit: Yes Status: Chronic Qualifiers: COPD type: chronic bronchitis Chronic bronchitis type: simple Qualified Code(s): J41.0 - Simple chronic bronchitis (7) HTN (hypertension) Current Visit: Yes Status: Chronic Qualifiers: Hypertension type: essential hypertension Qualified Code(s): I10 - Essential (primary) hypertension (8) Anemia Current Visit: No Status: Acute Qualifiers: Anemia type: unspecified type Qualified Code(s): D64.9 - Anemia, unspecified - Subjective Interval history: no shortness of breath, still weakness, edema lower extremities, denies sob during this encounter, his at bedside, complaining of cough. - Constitutional Vitals: Temp Pulse Resp BP Pulse Ox 96.4 F L 104 16 106/74 100 09/09/16 11:51 09/09/16 11:51 09/09/16 11:51 09/09/16 11:51 09/09/16 11:51 General appearance: Present: A&O X 3, no acute distress - Head Head exam: Present: atraumatic, normocephalic - Eye Eye exam: Present: PERRL, conjuntiva pink, sclera anicteric Pupils: Present: PERRL - Neck Neck exam general surgery: Present: supple, trachea midline. Absent: lymphadenopathy - Respiratory Respiratory exam: Present: CTAB. Absent: accessory muscle use, rales, rhonchi, wheezes - Cardiovascular Cardiovascular exam: Present: RRR, +S1, +S2. Absent: diastolic murmur, gallop, rubs, systolic murmur - GI/Abdominal GI/Abdominal exam: Present: normal bowel sounds, soft, no peritoneal signs. Absent: distended, tenderness - Extremities Exam Extremities exam: Present: pedal edema, warm, radial pulses palpable and symetrical. Absent: calf tenderness, cyanotic - Neurological Exam Neurological exam: Present: CN II-XII intact, oriented X3, no focal deficits. Absent: pronater drift, facial droop, speech deficit - Skin Skin exam: Present: dry, intact Internal Medicine: Result - Labs CBC & Chem 7: 09/09/16 04:29 09/09/16 04:29 Labs: Short CBC 09/09/16 Range/Units 04:29 WBC 5.7 (4.3-11.1) K/mcL Hgb 10.2 L (12.9-16.9) g/dL Hct 30.7 L (37.5-50.1) % Plt Count 64 L (140-400) K/mcL Neutrophils # 3.8 (1.6-8.9) K/mcL BMP 09/09/16 04:29 Sodium 131 L Potassium 3.5 Chloride 92 L Carbon Dioxide 22 BUN 79 H Creatinine 5.94 H Glucose 123 H Calcium 8.1 L - ABG Interpretation ABG results: PT/INR, D-dimer PT 19.1 Seconds (9.4-12.1) H 09/07/16 03:55 - Impressions Impressions Insertion Non-Tunneled Catheter 09/06/16 00:00 IMPRESSION: 1. Right internal jugular vein temporary dialysis catheter placement as discussed above. D/ / Giuseppe Chow MD / Giuseppe Chow MD Interpreting Provider: Giuseppe Chow MD Insertion Tunneled Catheter 09/06/16 00:00 IMPRESSION: 1. Right internal jugular vein temporary dialysis catheter placement as discussed above. D/ / Giuseppe Chow MD / Giuseppe Chow MD Interpreting Provider: Giuseppe Chow MD Consult Discharge Plan - Plan Referrals: Prakash Couch DO [Primary Care Provider] - 09/12/16 3:20 pm (Please follow up as schedule...)
[2016-09-09] MEDS ORDERED: 0.9 % Sodium Chloride 500 ML ONE (21:42)
[2016-09-09] MEDS: Famotidine 20 MG TABLET PO SCH (21:46)
[2016-09-10 00:12] LABS: Basophils % 0.7 %; Eosinophils # 0.1 K/mcL (0.0-0.6); Eosinophils % 1.4 %; Hematocrit 31.5 % (37.5-50.1); Hemoglobin 10.3 g/dL (12.9-16.9); Immature Granulocytes % 0.3 % (0-4); Immature Platelets 13.1 % (1.1-6.1); Lymphocytes # 0.7 K/mcL (0.6-4.6); Lymphocytes % 12.5 %; Mean Corpuscular HGB Conc 32.7 g/dL (31.6-35.5); Mean Corpuscular Hemoglobin 31.3 pg (28.0-33.3); Mean Corpuscular Volume 95.7 fL (83.0-100.0); Mean Platelet Volume 10.8 fL (9.4-12.4); Monocytes # 0.4 K/mcL (0.0-1.3); Monocytes % 6.3 %; Neutrophils # 4.6 K/mcL (1.6-8.9); Nucleated Red Blood Cells 0.5 /100 WBC (0); Red Blood Count 3.29 M/mcL (4.19-5.50); Red Cell Distribution Width 25.2 % (11.5-14.5); Segmented Neutrophils % 78.8 %
[2016-09-10 00:13] LABS: Platelet Count 45 K/mcL (140-400)
[2016-09-10 00:28] LABS: Platelet Estimate Decreased (Normal)
[2016-09-10 00:29] LABS: Anisocytosis 3+ (Not Present)
[2016-09-10 00:30] LABS: Hypochromasia Present (Not Present)
[2016-09-10 03:40] LABS: Hemoglobin 10.4 g/dL (12.9-16.9); Immature Granulocytes % 0.4 % (0-4); Nucleated Red Blood Cells 0.4 /100 WBC (0); Red Cell Distribution Width 25.2 % (11.5-14.5)
[2016-09-10 03:42] LABS: Basophils % 0.7 %; Eosinophils # 0.1 K/mcL (0.0-0.6); Eosinophils % 0.9 %; Hematocrit 31.9 % (37.5-50.1); Immature Platelets 14.6 % (1.1-6.1); Lymphocytes # 0.8 K/mcL (0.6-4.6); Lymphocytes % 14.9 %; Mean Corpuscular HGB Conc 32.6 g/dL (31.6-35.5); Mean Corpuscular Hemoglobin 31.2 pg (28.0-33.3); Mean Corpuscular Volume 95.8 fL (83.0-100.0); Mean Platelet Volume 11.2 fL (9.4-12.4); Monocytes # 0.4 K/mcL (0.0-1.3); Monocytes % 7.8 %; Neutrophils # 4.1 K/mcL (1.6-8.9); Red Blood Count 3.33 M/mcL (4.19-5.50); Segmented Neutrophils % 75.3 %
[2016-09-10 03:45] LABS: Platelet Count 46 K/mcL (140-400)
[2016-09-10 03:47] LABS: INR 1.5; Prothrombin Time 15.8 Seconds (9.4-12.1)
[2016-09-10 03:51] LABS: Calcium 8.1 mg/dL (8.6-10.8); Potassium 3.5 mEq/L (3.5-4.5)
[2016-09-10 04:01] LABS: Platelet Estimate Decreased (Normal)
[2016-09-10 04:02] LABS: Anisocytosis 3+ (Not Present); Macrocytosis Present (Not Present); Microcytosis Present (Not Present)
[2016-09-10 04:03] LABS: Hypochromasia Present (Not Present)
[2016-09-10] MEDS: Argatroban 250 MG in D5% in Water 250 ML IVC SCH (04:32)
[2016-09-10] MEDS: Calcium Acetate 667 MG CAPSULE PO SCH ×3 (07:22→17:04)
--- NOTE | 2016-09-10 08:03 | Oncology Inp Consult Note ---
Date of Encounter: 09/10/16 Time of Encounter: 07:58 - Data of Consult Patient: new to practice Consult date: 09/10/16 Requesting Physician: Julian Layton Primary Care Provider: Prakash Couch, - Consult Narrative Reason for consult: Thrombocytopenia, suspected HIT History of present illness: Mr. Delcid is a 65 year old gentleman currently hospitalized for acute decompensation of known end-stage renal disease and now receiving a normal replacement therapy with intermittent dialysis. He presented with progressive fluid retention manifesting as leg swelling and associated with exertional dyspnea. His evaluation showed creatinine as high as 6.2 in addition to fluid retention which was reason for starting dialysis. He had an echocardiogram 09/06/16 for evaluation of fluid overload and was noted to have severely decreased LVEF (10-15%) with dilated left ventricle and an echo density in the LV apex suspicious for thrombus. For that, he was started on anticoagulation with heparin infusion and has been noted with progressively declining platelet count from initial value of 157 on admission (09/05/16) to most recent of 46,000 earlier this morning. Hematology is consulted due to concern about heparin-induced thrombocytopenia. HIT panel has been sent. [employer] consulted for further validation of suspected heparin-induced of cytopenia. Dr. Layton was kind enough to discuss patient's history of meantime of requesting consultation regarding consult question. Due to progressive decline in his platelet count, heparin has been stopped and he is now on argatroban due to suspicion of heparin-induced from his cytopenia. Patient seen and examined at bedside. Chart reviewed for details of ongoing care by hospital team which is much appreciated. He confirms history of progressive kidney dysfunction for which should been in discussion with Dr. Langley on an outpatient basis regarding renal replacement therapy. 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 Diverticular disease sigmoid colon, internal hemorrhoids, nonneoplastic polyps in the cecum. For his current hospital admission, he is not having any bleeding symptoms. In addition to his thrombocytopenia, he also had an associated mild anemia with hemoglobin of 10.4 this morning. Fortunately, his maintaining a relatively stable hemoglobin since admission. Per his records, he was documented with folate deficiency about a year ago I also said that he had a prescription for folic acid. He reports compliance with his folic acid. He does not have any other known hematologic disorder or hematinic deficiencies. Rest of past medical, surgical, family, social history detailed below and verified with patient today. Review of systems: 12 point review of systems performed with patient and positive findings noted in history of present illness. All other systems are negative: Physical exam: Vital Signs Temp 98.1 F 09/10/16 07:00 Pulse 110 09/10/16 07:00 Resp 20 09/10/16 07:00 BP 101/69 09/10/16 07:00 Pulse Ox 97 09/10/16 07:00 GENERAL: Alert and oriented, chronically ill appearing. Mental Status: Affect appropriate for circumstances HEENT: Sclerae anicteric. No mucositis or thrush. No other oral or pharyngeal lesions or erythema. Skin: Reticular rash over bilateral lower extremity. No bleeding symptoms. No evidence of skin malignancy Lymph nodes: No cervical, supraclavicular, axillary, or inguinal adenopathy. Lungs: Clear to auscultation bilaterally. Clear to percussion bilaterally. Cardiovascular: Regular rate and rhythm. No gallops, murmurs, or rubs. Abdomen: Soft, nontender; No organomegaly or masses palpable. Extremities: Bilateral lower extremity edema. No calf swelling or tenderness. No joint deformity. Neurologic: Alert, normal gait; no focal weakness or sensory abnormalities. Results: Laboratory Last Values WBC 5.4 K/mcL (4.3-11.1) 09/10/16 03:30 RBC 3.33 M/mcL (4.19-5.50) L 09/10/16 03:30 Hgb 10.4 g/dL (12.9-16.9) L 09/10/16 03:30 Hct 31.9 % (37.5-50.1) L 09/10/16 03:30 MCV 95.8 fL (83.0-100.0) 09/10/16 03:30 MCH 31.2 pg (28.0-33.3) 09/10/16 03:30 MCHC 32.6 g/dL (31.6-35.5) 09/10/16 03:30 RDW 25.2 % (11.5-14.5) H 09/10/16 03:30 Plt Count 46 K/mcL (140-400) L 09/10/16 03:30 MPV 11.2 fL (9.4-12.4) 09/10/16 03:30 Immature Gran % 0.4 % (0-4) 09/10/16 03:30 Seg Neutrophils % 75.3 % 09/10/16 03:30 Lymphocytes % 14.9 % 09/10/16 03:30 Monocytes % 7.8 % 09/10/16 03:30 Eosinophils % 0.9 % 09/10/16 03:30 Basophils % 0.7 % 09/10/16 03:30 Neutrophils # 4.1 K/mcL (1.6-8.9) 09/10/16 03:30 Lymphocytes # 0.8 K/mcL (0.6-4.6) 09/10/16 03:30 Monocytes # 0.4 K/mcL (0.0-1.3) 09/10/16 03:30 Eosinophils # 0.1 K/mcL (0.0-0.6) 09/10/16 03:30 Basophils # 0.0 K/mcL (0.0-0.2) 09/10/16 03:30 Nucleated RBCs/100 WBC 0.4 /100 WBC (0) H 09/10/16 03:30 Platelet Estimate Decreased (Normal) L 09/10/16 03:30 Large Platelets Present (Not Present) A 09/08/16 03:46 Immature Plt Fraction 14.6 % (1.1-6.1) H 09/10/16 03:30 Polychromasia 1+ (Not Present) A 09/08/16 03:46 Hypochromasia Present (Not Present) A 09/10/16 03:30 Poikilocytosis 1+ (Not Present) A 09/08/16 03:46 Anisocytosis 3+ (Not Present) A 09/10/16 03:30 Microcytosis Present (Not Present) A 09/10/16 03:30 Macrocytosis Present (Not Present) A 09/10/16 03:30 Irais Cells 1+ (Not Present) A 09/07/16 03:55 PT 15.8 Seconds (9.4-12.1) H 09/10/16 03:30 INR 1.5 09/10/16 03:30 APTT 31.8 Seconds (26.0-36.0) D 09/09/16 21:57 Heparin Anti-Xa, Unfract 0.28 IU/mL (0.30-0.70) L 09/07/16 03:55 Sodium 134 mEq/L (136-145) L 09/10/16 03:30 Potassium 3.5 mEq/L (3.5-4.5) 09/10/16 03:30 Chloride 96 mEq/L (98-109) L 09/10/16 03:30 Carbon Dioxide 23 mEq/L (19-29) 09/10/16 03:30 BUN 51 mg/dL (8-26) H D 09/10/16 03:30 Creatinine 4.70 mg/dL (0.72-1.25) H 09/10/16 03:30 Est GFR ( Amer) 15 (> 60) L 09/10/16 03:30 Est GFR (Non-Af Amer) 13 (> 60) L 09/10/16 03:30 BUN/Creatinine Ratio 11 (6-26) 09/10/16 03:30 Glucose 105 mg/dL (70-99) H 09/10/16 03:30 Calculated Osmolality 292 (280-300) 09/10/16 03:30 Calcium 8.1 mg/dL (8.6-10.8) L 09/10/16 03:30 Phosphorus 5.7 mg/dL (2.3-4.7) H 09/07/16 03:55 Magnesium 2.4 mg/dL (1.6-2.6) 09/06/16 04:25 Troponin I 0.19 ng/mL (0-0.03) H* 09/06/16 04:25 B-Natriuretic Peptide > 5000 pg/mL (0-100) H 09/07/16 03:55 25-OH Vitamin D Total 77 ng/mL (30-80) 09/06/16 04:25 Urine Color Yellow (Yellow) 09/06/16 02:35 Urine Clarity Clear (Clear) 09/06/16 02:35 Urine pH 5.5 pH Units (5.0-8.0) 09/06/16 02:35 Ur Specific Lorman 1.017 (1.010-1.025) 09/06/16 02:35 Urine Protein 100 mg/dL (Neg-Trace) H 09/06/16 02:35 Urine Glucose (UA) Normal mg/dL (Normal) 09/06/16 02:35 Urine Ketones Negative mg/dL (Negative) 09/06/16 02:35 Urine Blood Moderate (Negative) H 09/06/16 02:35 Urine Nitrite Negative (Negative) 09/06/16 02:35 Urine Bilirubin Negative (Negative) 09/06/16 02:35 Urine Urobilinogen Normal mg/dL (Normal) 09/06/16 02:35 Ur Leukocyte Esterase Negative (Negative) 09/06/16 02:35 Urine Microscopic RBC 3-5 per hpf (0-3) H 09/06/16 02:35 Urine Microscopic WBC 0-3 per hpf (0-3) 09/06/16 02:35 Ur Squamous Epith Cells Moderate per lpf (None-Few) H 09/06/16 02:35 Urine Bacteria None Seen per hpf (None-Few) 09/06/16 02:35 Hyaline Casts None Seen per lpf (None-Few) 09/06/16 02:35 Hep Bs Antigen Nonreactive (Nonreactive) 09/06/16 11:37 Hep Bs Antibody 0.28 mIU/mL 09/06/16 11:37 Radiographic studies: I personally reviewed and interpreted patient's most recent imaging studies dated 09/05/16. I discussed the findings with the patient today. Chest X-Ray 09/05/16 14:50 IMPRESSION: No acute cardiopulmonary disease. D/ / 09/05/2016 15:49:24 Gee Panda MD / michelle Interpreting Provider: Gee Panda MD Impression/recommendations: Unexplained anemia/thrombocytopenia: I discussed with patient today diagnostic considerations for his cytopenias including hematinic deficiencies, hemolysis, chronic liver disease, chronic infection, chronic kidney disease, autoimmune/rheumatoid disorders, hypothyroidism, and primary hematologic disorder. I will send bloodwork to evaluate above considerations. Abdominal imaging to look for organomegaly or lymphadenopathy that may suggest the primary hematolymphoid disorders including malignancy. Nephrology is on board for his end-stage renal disease and he is being considered for erythropoiesis stimulating agent for anemia due to chronic kidney disease. I thinks is very reasonable. Not symptomatic with current counts and no acute intervention needed. He understands that if above results inconclusive and he continues to have declining counts, further evaluation with a bone marrow biopsy may be needed. For his thrombocytopenia, my suspicion for clinical heparin-induced thrombocytopenia is low based on his 4 T score of 3 indicating a very low pretest probability. Nevertheless, I think antibiotic radiation with argatroban is reasonable as you' re doing as patient needs anticoagulation on account of his LV thrombus which is likely due to severe systolic dysfunction and LV dilatation. We'll follow the patient along side you during this hospitalization and make further recommendations based on results of pending studies. In the interim, we'll recommend transfusion support to maintain hemoglobin of 7 or greater, platelet count of 20,000 or greater unless he is actively bleeding in which case a lower transfusion threshold should be considered.. Thank you for your excellent ongoing care for allowing us to see him while in- house. This report was created using voice recognition software and may contain errors. It was signed but not edited to expedite communication. Corrections will be made in a separate addendum as needed. Past Med Surg Social Fam HX - Past Medical History Medical history: COPD, hypertension, peripheral artery disease (carotid disease) , renal disease Psychiatric history: no psych history - Past Surgical History Surgical History: carotid endarterectomy (left) - Social History Smoking Status: Current every day smoker Packs per day: 5-8 cigarettes x45 years Smokeless Tobacco Status: No Alcohol use: heavy, recent Drug use: none Medications and Allergies Guaifenesin [Mucinex] 600 mg PO 1-2XD PRN 10/07/15 [History] Multivitamin [Multi-Day Vitamins] 1 tab PO DAILY 10/08/15 [History] Calcium Acetate [Phos-LO] 667 mg PO TIDWM 30 Days 10/16/15 [Rx] Sodium Bicarbonate 650 mg PO BID 30 Days 10/16/15 [Rx] Allopurinol [Zyloprim 100 MG] 100 mg PO DAILY #30 tablet 10/20/15 [Rx] Cholecalciferol (D-3) [Vitamin D] 2,000 unit PO DAILY tablet 10/20/15 [Rx] Folic Acid 1 mg PO DAILY tablet 10/20/15 [Rx] Acetaminophen [Tylenol] 650 mg PO Q6HR PRN 09/05/16 [History] Amlodipine Besylate 10 mg PO DAILY PRN 09/05/16 [History] Ipratropium/Albuterol Neb [Duoneb] 3 ml IH Q8HR PRN 09/05/16 [History] Iron Polysaccharide Complex [Pro Fe] 180 mg PO BID 09/05/16 [History] Loratadine [Claritin] 10 mg PO DAILY 09/05/16 [History] Potassium Chloride [K-Tab ER] 20 meq PO BID 09/05/16 [History] Ranitidine HCl [Zantac] 150 mg PO HS 09/05/16 [History] Sodium Chloride 1 gm PO TID 09/05/16 [History] Allergies codeine Allergy (Verified 10/07/15 05:44) Hives Penicillins Allergy (Verified 10/07/15 05:44) Hives Oncology - Exam - Constitutional Vitals: Temp Pulse Resp BP Pulse Ox 98.1 F 110 20 101/69 97 09/10/16 07:00 09/10/16 07:00 09/10/16 07:00 09/10/16 07:00 09/10/16 07:00 Oncology - Results - Labs Labs: Short CBC 09/09/16 09/10/16 Range/Units Unknown 03:30 WBC 5.8 5.4 (4.3-11.1) K/mcL Hgb 10.3 L 10.4 L (12.9-16.9) g/dL Hct 31.5 L 31.9 L (37.5-50.1) % Plt Count 45 L 46 L (140-400) K/mcL Neutrophils # 4.6 4.1 (1.6-8.9) K/mcL BMP 09/10/16 03:30 Sodium 134 L Potassium 3.5 Chloride 96 L Carbon Dioxide 23 BUN 51 H D Creatinine 4.70 H Glucose 105 H Calcium 8.1 L Consult Discharge Plan - Plan Referrals: Prakash Couch DO [Primary Care Provider] - 09/12/16 3:20 pm (Please follow up as schedule...)
--- NOTE | 2016-09-10 08:43 | Invasive Diagnostic Lab Proc ---
Name: Sreekanth Delcid Eitan Date of Study: 09/09/2016 Date: 1950 Ht: 74.0in Medical Record#: [id number] Age: 65 Wt: 192.46lb Gender: Male BSA: 2.14 Order #: [id number] BMI: 24.7 Physicians Procedure Physician: Wili Cristobal MD, [facility] Referring MD: Referring MD: Staff Name Position Time In Sites, Kassandra RT (R) Scrub 02:12 PM Kaylene Kirkpatrick RN Boat Cleaning Supervisor 02:13 PM Lolly Arenas RN Nurse 02:13 PM Chanda Brandt RT (R) Monitor 02:13 PM Indications Indication Non-Stemi Procedures Performed Procedure CORONARY ARTERY ANGIO S\\T\\I Pre-Procedure Checklist Informed consent is complete signed and on chart. H\\T\\P is on chart. ID band is on and ID verified with patient. Patient NPO for procedure The procedure was described for the patient and questions were answered. ECG is on chart. Plan of Care Patient will tolerate the procedure without complications. Adequate level of comfort will be maintained. Hemodynamics will remain stable Patient will recover from procedure without complications. Respiratory function will be maintained. Cardiac rhythm will remain stable. Patient temperature will be maintained. Patient and/or family have verbalized understanding of the procedure. Patient Education Chief Complaint/Reason for Test: Cardiac Cath Developmental Category: Geriatric (65+ years) Developmentally Appropriate for Age: Yes Learning Barriers: None Education Needs: Procedure Education Method: Verbal Information Taught: Cardiac Cath Educational Evaluation: Able to repeat information Intravenous Access Time IV Size Location DC'd Fluid/Drip Rate Units RN 20g 1 /" Patent On Arrival Lt Arm 0.9NaCl Allergies PCN Penicillins codeine Vital Signs Time BP (mmHg) HR (bpm) O2 Sat. RR (bpm) LOC / % 5 = Fully awake and oriented or at pre-proc level 02:14 PM / % 5 = Fully awake and oriented or at pre-proc level 02:14 PM / % 5 = Fully awake and oriented or at pre-proc level 02:27 PM / % 4 = Oriented but drowsy 02:56 PM 92 / 73 97 98 % 25 03:01 PM 91 / 74 96 98 % 9 03:06 PM 93 / 67 98 98 % 15 03:11 PM 97 / 73 94 100 % 21 02:16 PM 110 / 77 101 100 % 02:21 PM 104 / 75 111 96 % 7 02:26 PM 92 / 72 102 94 % 02:31 PM 96 / 72 100 93 % 17 02:36 PM 94 / 69 97 96 % 6 02:41 PM 91 / 73 97 99 % 02:46 PM 91 / 75 96 98 % 12 02:51 PM 94 / 68 97 96 % 17 Procedural Medications Time Medication Dose Units Method Given By 02:17 PM Versed 2 mg Intravenous Kaylene Kirkpatrick RN 02:17 PM Fentanyl 50 mcg Intravenous Kaylene Kirkpatrick RN 02:33 PM Lidocaine 2% 16 ml Subcutaneous Wili Cristobal MD, FACC 02:40 PM Lidocaine 2% 14 ml Subcutaneous Wili Cristobal MD, FACC ASA Classification: CLASS II- Mild systemic disease (i.e. well-controlled diabetes, hypertension, asthma, cigarette smoking) Suze Score Preprocedure Postprocedure Activity 2- Moves 4 extremities sustained head lift Activity 2- Moves 4 extremities sustained head lift Circulation 2- SBP +/= 20 points of pre-anesthetic level Circulation 2- SBP +/= 20 points of pre-anesthetic level Consciousness 2- Awake and alert oriented x 3 Consciousness 2- Awake and alert oriented x 3 O2 Saturation 2- Able to maintain O2 satruation of 92% on room air O2 Saturation 2- Able to maintain O2 satruation of 92% on room air Respiratory 2- Able to deep breathe and cough well Respiratory 2- Able to deep breathe and cough well Total Score 10 Total Score 10 Contrast Agent: Isovue Diagnostic Contrast: 47 ml Total Contrast: 47 ml Fluoro Dose: 242 mGy Procedure Log Time Note Enter By 12:00 AM 0.035 145cm VSI Tien-Torque wire [id number] [facility] 02:07 PM CathStat 02:08 PM Pt arrived to forestry laborer 2 at 14:08 dsp 02:12 PM Kassandra Woodard RT (R) Position: Scrub Time in: 14:12 02:13 PM Kaylene Kirkpatrick RN Position: Boat Cleaning Supervisor Time in: 14:13 02:13 PM Case Start 02:13 PM Lolly Arenas RN Position: Nurse Time in: 14:13 02:13 PM Chanda Brandt RT (R) Position: Monitor Time in: 14:13 02:13 PM Patient charges- Angio tray pack, Navilyst 3mm J, Pulse Oximetry and ACIST tubing and transducer PM IV Supplies used: J loop Angio Cath. Case Delayed No PM Physician arrived 14:13 PM ASA Class CLASS II- Mild systemic disease (i.e. well-controlled diabetes, hypertension, asthma, cigarette smoking) Meet and greet completed Sign in performed according to hospital policy. Procedure start 14: PM Time: 14:13 Patient comfortable and pain free: Yes PM Time: 14:14LOC: 5 = Fully awake and oriented or at pre-proc level :15 PM Vitals capture started with the following parameters, Patient=Adult, Interval=5 min, Initial Nrvrkgba=735 mmHg, Deflation Rate=5 mmHg, Cuff placed on Left Arm 02:16 PM SV=633 bpm, FIRK=219/77 mmhg, WvA4=599.0 %, Comment=NSR :17 PM Time: 14:17 Versed 2 mg Intravenous Given by Kaylene Kirkpatrick RN PM Time: 14:17 Fentanyl 50 mcg Intravenous Given by Kaylene Kirkpatrick RN :20 PM Hair removed from procedure site in holding area using clippers. Bilateral groin prepped with Chloraprep by Kaylene Kirkpatrick RN, safety strap applied then patient was draped. Skin intact. :21 PM CO=764 bpm, RCXH=665/75 mmhg, SpO2=96.0 %, Resp=7 B/min, Comment=NSR 02:26 PM XJ=635 bpm, NIBP=92/72 mmhg, SpO2=94.0 %, Comment=NSR : PM Time: 14:14 Patient comfortable and pain free: Yes PM Time: 14:14LOC: 5 = Fully awake and oriented or at pre-proc level PM Clinical Presentation: Unstable angina Pressure channel 1 zeroed. 02:31 PM JK=863 bpm, NIBP=96/72 mmhg, SpO2=93.0 %, Resp=17 B/min, Comment=NSR 02:31 PM Time out performed according to hospital policy dspell 02:33 PM Time: 14:33 16 ml Lidocaine 2% to right groin Subcutaneous Given by Wili Cristobal MD, [facility] dspellman 02:34 PM Access obtained by percutaneous puncture. 5Fr 10cm Terumo [place] sheath placed in right Femoral artery. [id number] dspellman 02:34 PM 5Fr FL 4 catheter inserted over the wire DN dspell 02:34 PM 0.035 145cm Navilyst 3mmJ wire [id number] dspellman 02:36 PM HR=97 bpm, NIBP=94/69 mmhg, SpO2=96.0 %, Resp=6 B/min, Comment=NSR 02:36 PM unable to advance wire and catheter dspell 02:36 PM contrast injected, images obatained dspell 02:37 PM Catheter and wire removed dspell 02:40 PM prepping left groin for access dspell 02:40 PM Time: 14:40 14 ml Lidocaine 2% to left groin Subcutaneous Given by Wili Cristobal MD, [facility] dspellman 02:40 PM Access obtained by percutaneous puncture. 5Fr 10cm Terumo [place] sheath placed in left Femoral artery. [id number] dspellman 02:41 PM HR=97 bpm, NIBP=91/73 mmhg, SpO2=99.0 %, Comment=NSR 02:42 PM 5Fr FL 4 catheter inserted over the wire DN dspell 02:42 PM Time: 14:27 Patient comfortable and pain free: Yes dspell 02:42 PM Time: 14:27LOC: 4 = Oriented but drowsy dspell 02:43 PM LCA angiography performed in multiple views. dspell 02:43 PM Recorded Pressure: Ao, HR=96, Condition=Condition 1 (Aorta) Ao 88/74/81 02:44 PM Catheter removed dspell 02:45 PM 5Fr FR 4 catheter inserted over the wire DN dspell 02:46 PM HR=96 bpm, NIBP=91/75 mmhg, SpO2=98.0 %, Resp=12 B/min, Comment=NSR 02:46 PM Recorded Pressure: Ao, HR=96, Condition=Condition 1 (Aorta) Ao 95/74/84 02:46 PM RCA angiography performed in multiple views. dspellman 02:48 PM Coronary Dominance: Co-dominant dspellman 02:50 PM Lesion found in Mid RCA. Pre Stenosis: 40 Pre HEIDI Flow: dspellman 02:50 PM Lesion found in Proximal LAD. Pre Stenosis: 40 Pre HEIDI Flow: dspellman 02:50 PM Lesion found in Mid LAD. Pre Stenosis: 80 Pre HEIDI Flow: dspellman 02:51 PM HR=97 bpm, NIBP=94/68 mmhg, SpO2=96.0 %, Resp=17 B/min, Comment=NSR 02:51 PM Lesion found in Mid Circumflex. Pre Stenosis: 40 Pre HEIDI Flow: dspellman 02:51 PM Lesion found in 1st Marginal. Pre Stenosis: 50 Pre HEIDI Flow: dspellman 02:51 PM Lesion found in 2nd Marginal. Pre Stenosis: 30 Pre HEIDI Flow: dspellman 02:52 PM Proximal Left Anterior Descending Coronary Artery with 40% stenosis. If graft is supplying this territory, 0 % stenosis. dspellman 02:52 PM Mid/Distal Left Anterior Descending Coronary Artery and diagonal branches with 80% stenosis. If graft is supplying this area, 0 % stenosis dspellman 02:52 PM Circumflex, Obtuse Marginal, Left Posterior Descending, and Left Posterolateral Coronary Arteries with 40 % stenosis. If graft is supplying this area, 0 % stenosis dspellman 02:53 PM Right Coronary, Right Posterior Descending Arteries with Right Posterolateral and Acute Marginal branches with 40 % stenosis. If graft is supplying this area, 0 % stenosis dspellman 02:53 PM Procedure completed at 14:53 dspellman 02:54 PM Sign out completed: Radiation Dose 242.41 mGy Fluoro Time: 2.3 Isovue 370 - 200ml contrast 47 ml given by Wili Cristobal MD, [facility]. Complications: NoneCardiac Rehab Consult needed: NoConfirmed administered medications: Yes dspellman 02:54 PM Isovue 370 - 200ml,1 Bottle(s) used. dspellman 02:55 PM Post ECG NSR dspellman 02:55 PM Post Blood Pressure 94/68 dspellman 02:56 PM HR=97 bpm, NIBP=92/73 mmhg, SpO2=98.0 %, Resp=25 B/min, Comment=NSR 02:56 PM Post Blood Pressure 92/73 dspellman 02:57 PM Information taught Cardiac Cath :57 PM Education needs Procedure, Plan of Care, and Discharge Instructions :59 PM Learning barriers :None :59 PM Education Methods Verbal :59 PM Education evaluation Able to repeat information 03:01 PM HR=96 bpm, NIBP=91/74 mmhg, SpO2=98.0 %, Resp=9 B/min, Comment=NSR 03:06 PM Family placed in not available. 03:06 PM Complications: None 03:06 PM HR=98 bpm, NIBP=93/67 mmhg, SpO2=98.0 %, Resp=15 B/min, Comment=NSR 03:09 PM Lesion found in Mid RCA. Pre Stenosis: 40 Pre HEIDI Flow: 03:11 PM HR=94 bpm, NIBP=97/73 mmhg, YjS7=704.0 %, Resp=21 B/min, Comment=NSR Complications Complication None None Hemodynamics Pressures Site Systolic/A Wave Diastolic/V Wave Mean AO 88 74 81 AO 95 74 84 Post Procedure Information Blood Pressure: 92/73 mmHg Rhythm: NSR Post procedural instructions were given Closure Device Time Device Success/Fail 09/09/2016 3:10:00 PM Manual Compression Right groin Successful 09/09/2016 3:10:00 PM Manual Compression Left groin Successful Site Checks Time Location Status Staff Sheath In? Note 03:11 PM Rt Groin No bleeding/ No Hematoma Sites, Kassandra RT (R) 03:11 PM Lt Groin No bleeding/ No Hematoma Kaylene Kirkpatrick RN Pulses Updated by RT Cem (R) on 09/09/2016 3:16:02 PM RT Cem electronically signed on 09/10/2016 8:38:34 AM with status of Final
--- NOTE | 2016-09-10 09:08 | Nephrology Progress Note ---
Date of Encounter: 09/10/16 Time of Encounter: 09:06 - Assessment and Plan (1) ESRD on dialysis Current Visit: Yes Status: Acute Waiting for permacath placement today Plan for HD tomorrow Waiting for chair time at [facility] Avoid nephrotoxins if possible (2) HTN (hypertension) Current Visit: Yes Status: Chronic Currently well controlled per primary team Qualifiers: Hypertension type: essential hypertension Qualified Code(s): I10 - Essential (primary) hypertension (3) Hyponatremia Current Visit: Yes Status: Chronic Improving-today 134 Subjective Principal diagnosis: HTN, DAH Interval history: Patient seen and examined. States he is very weak. Objective - Vital Signs Vital signs: Vital Signs Temp Pulse Resp BP Pulse Ox 09/10/16 07:00 98.1 F 110 20 101/69 97 09/10/16 03:36 97.4 F L 106 26 97/66 98 09/09/16 23:50 97.4 F L 112 18 92/62 98 09/09/16 23:33 97.4 F L 112 27 83/50 98 09/09/16 20:44 97.4 F L 97 15 97/67 98 09/09/16 19:23 97.1 F L 18 113/77 09/09/16 19:20 109/69 09/09/16 19:05 115/74 09/09/16 18:50 108/77 09/09/16 18:35 113/75 09/09/16 18:20 111/73 09/09/16 18:05 105/75 09/09/16 17:50 105/64 09/09/16 17:35 108/74 09/09/16 17:20 107/70 09/09/16 17:05 109/81 09/09/16 16:50 99/75 09/09/16 16:48 97.1 F L 94 18 94/69 94 09/09/16 16:35 100/70 09/09/16 16:20 97.2 F L 18 106/68 09/09/16 11:51 96.4 F L 104 16 106/74 100 Intake and Output 09/09/16 09/10/16 09/10/16 23:59 07:59 15:59 Intake Total 2615 / 2615 40.5 / 40.5 Output Total 2700 / 2700 10 / 10 Balance -85 / -85 -10 / -10 40.5 / 40.5 Intake: IV Fluids 15 / 15 40.5 / 40.5 Argatroban 250 MG In 40.5 / 40.5 Dextrose 5% 250 ML @ 2 MCG/KG/MIN 10.54 mls/hr IVC CONT IMTIAZ Rx#: [id number] Heparin 25,000 UNIT/500 15 / 15 ML D5W 25,000 unit In 500 ml @ 14 UNIT/KG/HR 25. 909 mls/hr IVC .[id number] IMTIAZ Rx#:[id number] Oral 1999 / 1999 Intake, Rinseback and 600 / 600 Flushes Output: Urine 100 / 100 10 / 10 Total Dialysis Output 2600 / 2600 Other: # Voids 1 Weight 86.7 kg Hemodialysis Net Fluid 2000 Removed (mL) Patient Weight 09/10/16 23:59 Weight 86.7 kg - General Appearance General appearance: Present: chronically ill, frail EENT: Present: ATNC, mucous membranes moist, hearing intact, vision intact Neck: Present: supple Respiratory: Present: course breath sounds, rhonchi Cardiology: Present: edema (BLL edema-mild), normal S1, normal S2 Dialysis Vascular Access: Venous Catheter Gastrointestinal: Present: no tenderness, no guarding Integumentary: Present: warm and dry Neurologic: Present: alert and oriented x3 Psychiatric: Present: mood/affect appropriate, cooperative - Lab 09/10/16 03:30 09/10/16 03:30 Most recent lab results Calcium 8.1 mg/dL (8.6-10.8) L 09/10/16 03:30 Phosphorus 5.7 mg/dL (2.3-4.7) H 09/07/16 03:55 Magnesium 2.4 mg/dL (1.6-2.6) 09/06/16 04:25 Consult Discharge Plan - Plan Referrals: Prakash Couch DO [Primary Care Provider] - 09/12/16 3:20 pm (Please follow up as schedule...)
[2016-09-10] MEDS: Fluticasone Propionate Nasal 50 MCG/SPRAY BOTTLE NS SCH (09:26)
[2016-09-10] MEDS: Nicotine 21 MG PATCH.TD24 TD SCH (09:26)
[2016-09-10] MEDS: Multivit/Ca/Min/Fe/FA 1 TAB TABLET PO SCH (09:26)
[2016-09-10] MEDS: Metoprolol XL (24 HR) Succ 25 MG TAB.ER.24H PO SCH (09:26)
[2016-09-10] MEDS: Folic Acid 1 MG TABLET PO SCH (09:26)
[2016-09-10] MEDS: Cholecalciferol (D-3) 1,000 UNIT TABLET PO SCH (09:26)
[2016-09-10 09:38] LABS: Basophils % 0.4 %; Eosinophils % 0.6 %; Hematocrit 32.8 % (37.5-50.1); Hemoglobin 10.6 g/dL (12.9-16.9); Immature Granulocytes % 0.3 % (0-4); Immature Platelets 14.1 % (1.1-6.1); Immature Reticulocyte % 33.7 % (11.0-38.0); Lymphocytes # 0.6 K/mcL (0.6-4.6); Lymphocytes % 8.6 %; Mean Corpuscular HGB Conc 32.3 g/dL (31.6-35.5); Mean Corpuscular Volume 95.9 fL (83.0-100.0); Mean Platelet Volume 11.7 fL (9.4-12.4); Monocytes # 0.4 K/mcL (0.0-1.3); Monocytes % 6.5 %; Neutrophils # 5.7 K/mcL (1.6-8.9); Nucleated Red Blood Cells 0.3 /100 WBC (0); Red Blood Count 3.42 M/mcL (4.19-5.50); Red Cell Distribution Width 25.3 % (11.5-14.5); Retculocyte # 0.07 M/mcL (0.05-0.10); Reticulocyte % 2.1 % (1.6-2.8); Segmented Neutrophils % 83.6 %
[2016-09-10 09:41] LABS: Platelet Count 51 K/mcL (140-400)
[2016-09-10 10:00] LABS: Platelet Estimate Decreased (Normal)
[2016-09-10 10:01] LABS: Macrocytosis Present (Not Present)
[2016-09-10 10:02] LABS: Anisocytosis 3+ (Not Present); Microcytosis Present (Not Present)
[2016-09-10 10:03] LABS: Hypochromasia Present (Not Present)
[2016-09-10] MEDS: Acetaminophen 325 MG TABLET PO PRN ×2 (10:16→17:04)
--- NOTE | 2016-09-10 10:29 | Invasive Diagnostic Lab ---
Name: Sreekanth Delcid Date of Study: 09/09/2016 Date: 1950 Ht: 188.0 cm /74.0 in Medical Record#: [id number] Age: 65 Wt: 87.3 kg / 192.46 lb Account/Order#: [id number] Gender: Male BSA: 2.14 Order #: [id number] Fluoro Dose: 242 mGy BMI: 24.7 Procedure Physician: Wili Cristobal MD, FACC Referring MD: Referring MD: Procedures Performed: CORONARY ANGIOGRAPHY Iliofemoral angiography Indications: Non-Stemi Impressions: Nonischemic cardiomyopathy with EF 10-15% by echo and likely LV thrombus Obstructive sequential lesions in the mid LAD involving large diagonal bifurcation without angina with otherwise moderate CAD Peripheral arterial disease - left SFA occluded proximally Recommendations: Optimal medical therapy of patient's disease. Aggressive risk factor modification. If patient develops angina, PCI of mid LAD GENO if patient has claudication History/Risk Factors: COPD RENAL DYSFUNCTION LV THROMBUS Hypertension Dyslipidemia Peripheral Vascular Disease Procedure Access obtained in the left Femoral artery by percutaneous puncture Complications: None, None Contrast: Isovue 47ml Closure Device: Manual Compression Right groin, Manual Compression Left groin Hemodynamics: Pressures Site Systolic/ A Wave Diastolic/ V Wave End Diastolic/ Mean HR AO 88 74 81 96 AO 95 74 84 96 Coronary Dominance: Co-dominant Lesion Findings/Interventions * Left Main Coronary Artery The LMCA is angiographically free of disease. * Left Anterior Descending There is a 40% stenosis in the Proximal LAD. There is a 80% stenosis in the Mid LAD involving large diagonal. Subbranch of diagonal with 70% stenosis * Circumflex There is a 40% stenosis in the Mid Circumflex. There is a 50% stenosis in the 1st Marginal. There is a 30% stenosis in the 2nd Marginal. Minimal disease in PDA * Right Coronary Artery There is a 40% stenosis in the Proximal RCA. There is a 40% stenosis in the Mid RCA. Mild disease in PDA Left superficial femoral artery is occluded below the sheath. Appropriate sheath placement in the [employer]. Right sheath placement with nonflow limiting dissection. Updated by Chanda Brandt, RT (R) on 09/09/2016 3:16:21 PM Wili Cristobal MD, FACC electronically signed on 09/10/2016 10:24:34 AM with status of Final
[2016-09-10] MEDS: Ipratropium/Albuterol Neb 3 ML IH PRN ×2 (10:31→15:29)
--- NOTE | 2016-09-10 11:32 | Cardiology Progress Note ---
Date of Encounter: 09/10/16 Time of Encounter: 11:20 Assessment and Plan (1) Systolic heart failure Current Visit: Yes Status: Acute Newly diagnosed systolic CHF, chronicity and etiology unclear. Denies hx of CAD , CHF or cardiac issues. TTE 09/06/16: LVEF 10-15%, mildly dilated LV, severe global LV systolic dysfunction, moderately dilated RV with moderate reduction in function, severe dilated left and right atrium, mild AR. LHC 09/09/16: non-ischemic CAD; obstructive sequential lesions mLAD involving large diagonal bifurcation without angina; otherwise with moderate CAD. PAD noted with left SFA proximally occluded. Dyspnea/edema have improved s/p HD; continues to have +2 BLE edema. s/p x3 HD (Friday, Friday, Friday) with >7 L fluid removal. Weight is down 6.3 kg from admission. Continue Toprol XL 12.5 mg daily, hold for SBP less than 100 or HR less than 60 ; uptitrate dose if able by discharge. Recommend ACEi/ARB by discharge if okay by Nephrology and if BP will tolerate. Volume mgmt per HD. CHF education provided including heart healthy diet and Na/ fluid restriction diet. Anticipate sign-off, will coordinate outpatient follow-up within 1 week. Qualifiers: Heart failure chronicity: unspecified heart failure chronicity Qualified Code(s): I50.20 - Unspecified systolic (congestive) heart failure (2) LV (left ventricular) mural thrombus Current Visit: Yes Status: Acute Echodensity in LV apex suspicious for thrombus. 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 Denies abnormal or unusual bleeding. Heparin gtt was discontinued this AM and started on Argatroban IV. Discussed with Dr. Rashid, recommend long-term anticoagulation with Coumadin for LV thrombus. Start coumadin with pharmacy when okay by Nephrology (awaiting permacath) and Oncology. Recommend referral to Coumadin clinic for outpatient management--will defer referral to primary service. (3) End stage renal disease Current Visit: Yes Status: Acute Started on HD 09/06/16. s/p x3 HD sessions. Nephrology following. Discussion w patient/family: The assessment and plan as outlined above was discussed with the patient and/or family members who expressed understanding and agreement. All questions were answered. Thank you for involving us in the care of your patient. Please call with any questions. The patient will be discussed and reviewed with Dr. Rashid; changes to be made accordingly. Subjective Principal diagnosis: HTN, DAH Interval history: Seen and examined. s/p x3 HD sessions. Reports dyspnea, LE edema have significantly improved. Complaints of fatigue, weakness. He denies chest pain or discomfort. Denies orthopnea. Discussed plan at length with patient and family members who where present at bedside. Objective Vital Signs, Last 4 Hours Resp Pulse Ox 09/10/16 10:34 20 97 General: Conversant HEENT: Atraumatic, Normocephaly, Other (right IJ temp dialysis cath) Cardiac: Reg Rate and Rhythm, Normal S1 and S2 Lungs: Other (Few expiratory wheezes. ) Neuro: Alert and responsive Abdomen: Soft Skin: No rashes noted on visualized skin Musculoskeletal: No Chest Wall Tenderness Extremities: Other (BLE +2 LE edema. Bilateral groin cath site soft--no bleeding or hematoma. ) Results 09/10/16 09:23 09/10/16 03:30 Lab Results 09/09/16 09/09/16 09/10/16 21:57 Unknown 03:30 WBC 5.8 5.4 Hgb 10.3 L 10.4 L Hct 31.5 L 31.9 L Plt Count 45 L 46 L INR APTT 31.8 D Sodium Potassium Chloride Carbon Dioxide BUN Creatinine Glucose Calcium 09/10/16 09/10/16 09/10/16 03:30 03:30 09:23 WBC 6.8 Hgb 10.6 L Hct 32.8 L Plt Count 51 L INR 1.5 APTT Sodium 134 L Potassium 3.5 Chloride 96 L Carbon Dioxide 23 BUN 51 H D Creatinine 4.70 H Glucose 105 H Calcium 8.1 L Active Medications Acetaminophen (Tylenol) 650 mg PO Q6HR PRN PRN Reason: Pain Stop: 03/07/17 19:18 Last Admin: 09/10/16 10:16 Dose: 650 mg Albuterol/Ipratropium (Duoneb) 3 ml IH [id number] PRN; Protocol PRN Reason: Shortness Of Breath/Wheezing Stop: 03/08/17 10:25 Last Admin: 09/10/16 10:31 Dose: 3 ml Allopurinol (Zyloprim) 100 mg PO DAILY IMTIAZ Stop: 03/08/17 09:01 Last Admin: 09/10/16 09:26 Dose: 100 mg Calcium Acetate (Phos-Lo) 667 mg PO TIDWM IMTIAZ Stop: 03/08/17 08:01 Last Admin: 09/10/16 11:10 Dose: Not Given Famotidine (Pepcid) 20 mg PO HS IMTIAZ Stop: 03/07/17 21:01 Last Admin: 09/09/16 21:46 Dose: 20 mg Fluticasone Propionate (Flonase) 100 mcg NS DAILY IMTIAZ PRN Reason: Protocol Stop: 03/09/17 16:16 Last Admin: 09/10/16 09:26 Dose: 100 mcg Folic Acid (Folic Acid) 1 mg PO DAILY IMTIAZ Stop: 03/08/17 09:01 Last Admin: 09/10/16 09:26 Dose: 1 mg Guaifenesin (Robitussin/Dm) 5 ml PO Q6HR PRN PRN Reason: Cough Stop: 03/09/17 08:49 Last Admin: 09/10/16 10:16 Dose: 5 ml Argatroban 250 mg/ Dextrose 252.5 mls @ 10.54 mls/hr IVC CONT IMTIAZ; 2 MCG/KG/MIN PRN Reason: Protocol Stop: 03/12/17 04:01 Last Titration: 09/10/16 08:16 Dose: 0 mcg/kg/min, 0 mls/hr Metoprolol Succinate (Toprol Xl) 12.5 mg PO DAILY [facility] Stop: 03/09/17 10:01 Last Admin: 09/10/16 09:26 Dose: 12.5 mg Multivitamins/Calcium (Thera M Plus) 1 tab PO DAILY IMTIAZ Stop: 03/08/17 09:01 Last Admin: 09/10/16 09:26 Dose: 1 tab Naloxone HCl (Narcan) 0.4 mg IVP Q2MIN PRN PRN Reason: Opioid Reversal Stop: 03/07/17 19:16 Nicotine (Nicoderm) 21 mg TD DAILY IMTIAZ PRN Reason: Protocol Stop: 03/10/17 16:16 Last Admin: 09/10/16 09:26 Dose: 21 mg Vitamin D (Vitamin D) 1,000 unit PO DAILY IMTIAZ Stop: 03/08/17 09:01 Last Admin: 09/10/16 09:26 Dose: 1,000 unit - Imaging and Cardiology Echo: report reviewed Cardiac cath: report reviewed Other Results: 12 hour tele: avg VX=[id number]. x1-4 beat run of NSVT. - EKG Interpretation EKG results cardiology: personally reviewed Consult Discharge Plan - Plan Referrals: Prakash Couch DO [Primary Care Provider] - 09/12/16 3:20 pm (Please follow up as schedule...)
[2016-09-10 12:29] LABS: Thyroid Stimulating Hormone 5.631 mcIU/mL (0.350-4.840)
[2016-09-10] MEDS ORDERED: Heparin 1,000 UNITS/500 mL NS 500 ML ONE (13:02)
[2016-09-10] MEDS ORDERED: *HR* Heparin 5,000 UNIT/ML VIAL ONE (13:42)
[2016-09-10 14:48] LABS: Vitamin B12 > 2000 pg/mL (213-816)
--- NOTE | 2016-09-10 17:25 | Internal Med Progress Note ---
Date of Encounter: 09/10/16 Time of Encounter: 11:00 - Assessment and plan (1) LV (left ventricular) mural thrombus Current Visit: Yes Status: Acute Assessment and plan: echo noted, possible lv thrombus, due to possible HIT, argatroban was started, hematology was consulted and will follow recommendations. no more procedures planned for now, had lhc and permacath placement, coumadin started and will check inr tomorrow. care home AC. (2) Systolic heart failure Current Visit: Yes Status: Acute Assessment and plan: no history of heart disease, severe systolic dysfunction and esrd, on beta blockers, blood pressure in the lower side, no cosmo inh at this point, LCH done yesterday, no inerventions on cardiology stand point, continue heart failure management and AC. Consider ICD as outpatient. Qualifiers: Heart failure chronicity: unspecified heart failure chronicity Qualified Code(s): I50.20 - Unspecified systolic (congestive) heart failure (3) End stage renal disease Current Visit: Yes Status: Acute Assessment and plan: continue with hd as per nephro, permanent catheter placement today. fluid overload improving. (4) Fluid overload Current Visit: Yes Status: Acute Assessment and plan: hd as per nepho, over 7000 ml of HD output. Qualifiers: Hypervolemia type: other Qualified Code(s): E87.79 - Other fluid overload (5) Metabolic acidosis Current Visit: Yes Status: Chronic (6) COPD (chronic obstructive pulmonary disease) Current Visit: Yes Status: Chronic Qualifiers: COPD type: chronic bronchitis Chronic bronchitis type: simple Qualified Code(s): J41.0 - Simple chronic bronchitis (7) HTN (hypertension) Current Visit: Yes Status: Chronic Qualifiers: Hypertension type: essential hypertension Qualified Code(s): I10 - Essential (primary) hypertension (8) Anemia Current Visit: No Status: Acute Qualifiers: Anemia type: unspecified type Qualified Code(s): D64.9 - Anemia, unspecified - Subjective Interval history: no shortness of breath, still weakness, edema lower extremities, denies sob during this encounter, his at bedside, complaining of cough. - Constitutional Vitals: Temp Pulse Resp BP Pulse Ox 97.4 F L 93 20 121/81 98 09/10/16 14:45 09/10/16 15:00 09/10/16 15:30 09/10/16 15:00 09/10/16 15:30 General appearance: Present: A&O X 3, no acute distress - Head Head exam: Present: atraumatic, normocephalic - Eye Eye exam: Present: PERRL, conjuntiva pink, sclera anicteric Pupils: Present: PERRL - Neck Neck exam general surgery: Present: supple, trachea midline. Absent: lymphadenopathy - Respiratory Respiratory exam: Present: decreased breath sounds. Absent: accessory muscle use, rales, rhonchi, wheezes - Cardiovascular Cardiovascular exam: Present: RRR, +S1, +S2. Absent: diastolic murmur, gallop, rubs, systolic murmur - GI/Abdominal GI/Abdominal exam: Present: normal bowel sounds, soft, no peritoneal signs. Absent: distended, tenderness - Extremities Exam Extremities exam: Present: pedal edema, warm, radial pulses palpable and symetrical. Absent: calf tenderness, cyanotic - Neurological Exam Neurological exam: Present: CN II-XII intact, oriented X3, no focal deficits. Absent: pronater drift, facial droop, speech deficit - Skin Skin exam: Present: dry, intact Internal Medicine: Result - Labs CBC & Chem 7: 09/10/16 09:23 09/10/16 03:30 Labs: Short CBC 09/09/16 09/10/16 09/10/16 Range/Units Unknown 03:30 09:23 WBC 5.8 5.4 6.8 (4.3-11.1) K/mcL Hgb 10.3 L 10.4 L 10.6 L (12.9-16.9) g/dL Hct 31.5 L 31.9 L 32.8 L (37.5-50.1) % Plt Count 45 L 46 L 51 L (140-400) K/mcL Neutrophils # 4.6 4.1 5.7 (1.6-8.9) K/mcL BMP 09/10/16 03:30 Sodium 134 L Potassium 3.5 Chloride 96 L Carbon Dioxide 23 BUN 51 H D Creatinine 4.70 H Glucose 105 H Calcium 8.1 L - ABG Interpretation ABG results: PT/INR, D-dimer PT 15.8 Seconds (9.4-12.1) H 09/10/16 03:30 - Impressions Impressions Guidance Needle Placement Ultrasound 09/10/16 00:00 IMPRESSION: Successful ultrasound and fluoroscopy guided tunneled catheter placement . D/ / Sebastián Porter MD / Sebastián Porter MD Interpreting Provider: Sebastián Porter MD Insertion Tunneled Catheter 09/10/16 00:00 IMPRESSION: Successful ultrasound and fluoroscopy guided tunneled catheter placement . D/ / Sebastián Porter MD / Sebastián Porter MD Interpreting Provider: Sebastián Porter MD Abdomen Ultrasound 09/10/16 08:30 IMPRESSION: 1. Liver has increased echogenicity and coarsened echo texture, which can be seen with fatty infiltration. No focal lesions. 2. Gallstones, sludge and nonspecific gallbladder wall thickening up to 5 mm. No additional sonographic signs of cholecystitis. HIDA scan may be helpful for further evaluation is clinically indicated. D/ / 09/10/2016 09:37:17 [facility] H[facility] Interpreting Provider: Mariia Haji MD Consult Discharge Plan - Plan Referrals: Prakash Couch DO [Primary Care Provider] - 09/12/16 3:20 pm (Please follow up as schedule...)
[2016-09-10] MEDS ORDERED: *HR* Warfarin 5 MG TABLET PO ONE (18:00)
--- NOTE | 2016-09-10 18:16 | Event Note ---
Date of Encounter: 09/10/16 Time of Encounter: 18:11 called by the nurse because patient became dizzy and pale while he was attempting to urinate, fell backwards on the bed, did not hit his head, denies trauma, did not have LOC, his at bedside. ekg sinus tachy, O2 95% on nasal cannula 2 lpm, states that feels better when i saw him in the unit. denies chest pain, fingerstick 222 mg, no focal weakness or nerological deficit noted, no fever. will give oxygen via nasal cannula. tele monitor. continuous pulse ox. NPO for now. head CT, chest CT ordered. stat labs including cbc, coags, cmp and trps. hold argatroban for now. D/W patient and his .
[2016-09-10 19:09] LABS: Basophils % 0.4 %; Hematocrit 34.3 % (37.5-50.1); Hemoglobin 10.9 g/dL (12.9-16.9); Immature Granulocytes % 0.5 % (0-4); Lymphocytes # 0.4 K/mcL (0.6-4.6); Lymphocytes % 4.3 %; Mean Corpuscular HGB Conc 31.8 g/dL (31.6-35.5); Mean Corpuscular Hemoglobin 31.1 pg (28.0-33.3); Mean Corpuscular Volume 97.7 fL (83.0-100.0); Monocytes # 0.3 K/mcL (0.0-1.3); Monocytes % 3.4 %; Nucleated Red Blood Cells 0.5 /100 WBC (0); Red Blood Count 3.51 M/mcL (4.19-5.50); Red Cell Distribution Width 25.9 % (11.5-14.5); Segmented Neutrophils % 91.4 %
[2016-09-10 19:11] LABS: Neutrophils # 7.9 K/mcL (1.6-8.9); Platelet Count 62 K/mcL (140-400)
[2016-09-10 19:14] LABS: INR 2.2
[2016-09-10 19:23] LABS: Albumin 2.8 g/dL (3.5-5.0); Albumin/Globulin Ratio 0.8 (1.1-2.2); Bilirubin,Total 1.6 mg/dL (0.2-1.2); Calcium 8.1 mg/dL (8.6-10.8); Globulin 3.7 g/dL (2.4-3.5); Potassium 4.1 mEq/L (3.5-4.5); Prothrombin Time 23.8 Seconds (9.4-12.1); Total Protein 6.5 g/dL (6.0-8.3)
[2016-09-10 19:31] LABS: Hypochromasia Present (Not Present); Microcytosis Present (Not Present); Ovalocytes 1+ (Not Present)
[2016-09-10 19:32] LABS: Platelet Estimate Decreased (Normal); Polychromasia 1+ (Not Present)
[2016-09-10 19:33] LABS: Acanthocytes 1+ (Not Present); Anisocytosis 3+ (Not Present); Macrocytosis Present (Not Present)
[2016-09-10] MEDS: Famotidine 20 MG TABLET PO SCH (20:48)
[2016-09-11 00:38] LABS: INR 1.8; Prothrombin Time 19.7 Seconds (9.4-12.1)
[2016-09-11 00:42] LABS: Basophils % 0.1 %; Mean Corpuscular HGB Conc 32.4 g/dL (31.6-35.5); Nucleated Red Blood Cells 0.3 /100 WBC (0)
[2016-09-11 00:44] LABS: Hematocrit 32.7 % (37.5-50.1); Hemoglobin 10.6 g/dL (12.9-16.9); Immature Granulocytes % 0.4 % (0-4); Lymphocytes # 0.4 K/mcL (0.6-4.6); Lymphocytes % 5.1 %; Mean Corpuscular Hemoglobin 30.8 pg (28.0-33.3); Mean Corpuscular Volume 95.1 fL (83.0-100.0); Mean Platelet Volume 12.1 fL (9.4-12.4); Monocytes # 0.3 K/mcL (0.0-1.3); Monocytes % 4.7 %; Red Blood Count 3.44 M/mcL (4.19-5.50); Red Cell Distribution Width 25.4 % (11.5-14.5); Segmented Neutrophils % 89.7 %
[2016-09-11 00:45] LABS: Potassium 4.2 mEq/L (3.5-4.5)
[2016-09-11 00:47] LABS: Neutrophils # 6.4 K/mcL (1.6-8.9); Platelet Count 61 K/mcL (140-400)
[2016-09-11 01:10] LABS: Anisocytosis 2+ (Not Present)
[2016-09-11 01:11] LABS: Hypochromasia Present (Not Present); Macrocytosis Present (Not Present); Microcytosis Present (Not Present); Polychromasia 1+ (Not Present)
[2016-09-11 01:12] LABS: Acanthocytes 1+ (Not Present); Large Platelets Present (Not Present); Platelet Estimate Decreased (Normal)
[2016-09-11] MEDS: Ipratropium/Albuterol Neb 3 ML IH PRN (03:39)
[2016-09-11] MEDS: Argatroban 250 MG in D5% in Water 250 ML IVC SCH (05:10)
[2016-09-11] MEDS: Calcium Acetate 667 MG CAPSULE PO SCH ×3 (07:54→17:45)
[2016-09-11] MEDS ORDERED: 0.9 % Sodium Chloride 250 ML IVC PRN (07:59)
[2016-09-11] MEDS ORDERED: ALBUMIN IVPB PRN (07:59)
[2016-09-11] MEDS: Fluticasone Propionate Nasal 50 MCG/SPRAY BOTTLE NS SCH (10:21)
[2016-09-11] MEDS: Folic Acid 1 MG TABLET PO SCH (10:21)
[2016-09-11] MEDS: Cholecalciferol (D-3) 1,000 UNIT TABLET PO SCH (10:21)
[2016-09-11] MEDS: Multivit/Ca/Min/Fe/FA 1 TAB TABLET PO SCH (10:22)
[2016-09-11] MEDS: Metoprolol XL (24 HR) Succ 25 MG TAB.ER.24H PO SCH (10:22)
[2016-09-11] MEDS: Nicotine 21 MG PATCH.TD24 TD SCH (10:22)
--- NOTE | 2016-09-11 10:41 | Oncology Inp Progress Note ---
<Stevan Brian - Last Filed: 09/11/16 10:39> Date of Encounter: 09/11/16 Time of Encounter: 10:39 (1) Thrombocytopenia Current Visit: Yes Status: Acute Assessment and plan: Patient's platelet has been stable around 60, yesterday was 62 and this morning was 61, the levels were actually lower few days ago but now it has improved, but still low suspicious for heparin-induced thrombocytopenia, as he received heparin for hemodialysis 3 days ago, continue to hold heparin drip for now, B12 and folate level were elevated, HIT panel has been pending, haptoglobin, MMA, blood smear are pending, patient has a normal percent reticulocyte count, unclear etiology of patient's thrombocytopenia at this point, continue to closely monitor patient's platelet counts. (2) Left ventricular thrombus Current Visit: Yes Status: Acute Assessment and plan: Likely related to his cardiomyopathy with 10-15% of left ventricular ejection fraction, continue argatroban for now and switch to oral anticoagulation agent upon discharge, follow-up with hematology/oncology clinic as outpatient. Oncology: Subj Interval history: Patient seen and examined. Patient was in the dialysis unit, he was alert and oriented 3, he states that when he gets up he gets lightheadedness, denies pain or any complains at this time. - Constitutional Vitals: Vital Signs Temp Pulse Resp BP Pulse Ox 09/11/16 10:16 107 26 96/66 09/11/16 07:17 97.8 F 121 32 97/65 09/11/16 04:09 98.2 F 113 27 107/67 98 09/11/16 03:42 18 100 09/10/16 23:51 97.4 F L 79 18 168/78 96 09/10/16 19:52 97.4 F L 101 18 88/49 98 09/10/16 17:30 102 16 98/60 97 09/10/16 16:30 105 18 95/63 95 09/10/16 16:00 109 18 94/63 96 09/10/16 15:30 104 18 96/70 97 09/10/16 15:15 103 18 93/63 98 09/10/16 15:00 93 16 121/81 97 09/10/16 14:45 97.4 F L 91 16 98/71 98 09/10/16 13:58 96 31 97/71 98 09/10/16 13:53 101 27 96/71 99 09/10/16 13:48 100 30 102/68 96 09/10/16 13:43 103 16 98/76 99 09/10/16 13:38 104 22 96/73 95 09/10/16 13:33 106 20 98/71 100 Intake and Output 09/10/16 09/11/16 09/11/16 23:59 07:59 15:59 Intake Total Output Total 100 / 100 Balance -100 / -100 Intake: IV Fluids Argatroban 250 MG In Dextrose 5% 250 ML @ 2 MCG/KG/MIN 10.54 mls/hr IVC CONT IMTIAZ Rx#: [id number] Output: Urine 100 / 100 Other: Stool Size Small Stool Consistency formed Stool Color Brown # Voids 1 # Bowel Movements 1 Weight 87.2 kg Blood Glucose* 245 130 Patient Weight 09/11/16 23:59 Weight 87.2 kg - Head Head exam: Present: atraumatic, normal inspection, normocephalic - Eye Eye exam: Present: EOMI, PERRL Pupils: Present: PERRL - ENT ENT exam: Present: mucous membranes dry - Neck Neck exam: Absent: lymphadenopathy, tenderness - Respiratory Respiratory exam: Present: CTAB. Absent: chest wall tenderness, rales, wheezes - Cardiovascular Cardiovascular exam: Present: RRR, +S1, +S2. Absent: clicks, rubs, systolic murmur - GI/Abdominal GI/Abdominal exam: Present: normal bowel sounds, soft. Absent: rebound, rigid, tenderness - Extremities Exam Extremities exam: Absent: calf tenderness, pedal edema, tenderness - Neurological Exam Neurological exam: Present: alert, oriented X3. Absent: altered, no focal deficits Oncology: Obj Data - Labs CBC & Chem 7: 09/11/16 00:23 09/11/16 00:23 Labs: Laboratory Results - last 24 hr 09/10/16 09/10/16 09/10/16 09:23 10:45 15:56 WBC RBC Hgb Hct MCV MCH MCHC RDW Plt Count MPV Immature Gran % Seg Neutrophils % Lymphocytes % Monocytes % Eosinophils % Basophils % Neutrophils # Lymphocytes # Monocytes # Eosinophils # Basophils # Nucleated RBCs/100 WBC Platelet Estimate Large Platelets Immature Plt Fraction Polychromasia Hypochromasia Anisocytosis Microcytosis Macrocytosis Ovalocytes Acanthocytes (Spur) PT INR APTT 92.8 H D Sodium Potassium Chloride Carbon Dioxide BUN Creatinine Est GFR ( Amer) Est GFR (Non-Af Amer) BUN/Creatinine Ratio Glucose Calculated Osmolality Calcium Ferritin 146 Total Bilirubin AST ALT Alkaline Phosphatase Troponin I B-Natriuretic Peptide Serum Total Protein Albumin Globulin Albumin/Globulin Ratio Vitamin B12 > 2000 H Folate 34.0 H TSH 5.631 H Thyroxine (T4) 3.54 L 09/10/16 09/10/16 09/10/16 18:36 18:36 18:36 WBC 8.6 RBC 3.51 L Hgb 10.9 L Hct 34.3 L MCV 97.7 MCH 31.1 MCHC 31.8 RDW 25.9 H Plt Count 62 L MPV 13.0 H Immature Gran % 0.5 Seg Neutrophils % 91.4 Lymphocytes % 4.3 Monocytes % 3.4 Eosinophils % 0.0 Basophils % 0.4 Neutrophils # 7.9 Lymphocytes # 0.4 L Monocytes # 0.3 Eosinophils # 0.0 Basophils # 0.0 Nucleated RBCs/100 WBC 0.5 H Platelet Estimate Decreased L Large Platelets Immature Plt Fraction Polychromasia 1+ A Hypochromasia Present A Anisocytosis 3+ A Microcytosis Present A Macrocytosis Present A Ovalocytes 1+ A Acanthocytes (Spur) 1+ A PT 23.8 H D INR 2.2 APTT 60.5 H Sodium Potassium Chloride Carbon Dioxide BUN Creatinine Est GFR ( Amer) Est GFR (Non-Af Amer) BUN/Creatinine Ratio Glucose Calculated Osmolality Calcium Ferritin Total Bilirubin AST ALT Alkaline Phosphatase Troponin I B-Natriuretic Peptide Serum Total Protein Albumin Globulin Albumin/Globulin Ratio Vitamin B12 Folate TSH Thyroxine (T4) 09/10/16 09/10/16 09/11/16 18:36 18:36 00:23 WBC RBC Hgb Hct MCV MCH MCHC RDW Plt Count MPV Immature Gran % Seg Neutrophils % Lymphocytes % Monocytes % Eosinophils % Basophils % Neutrophils # Lymphocytes # Monocytes # Eosinophils # Basophils # Nucleated RBCs/100 WBC Platelet Estimate Large Platelets Immature Plt Fraction Polychromasia Hypochromasia Anisocytosis Microcytosis Macrocytosis Ovalocytes Acanthocytes (Spur) PT INR APTT Sodium 134 L Potassium 4.1 Chloride 95 L Carbon Dioxide 19 BUN 54 H Creatinine 5.56 H Est GFR ( Amer) 13 L Est GFR (Non-Af Amer) 10 L BUN/Creatinine Ratio 10 Glucose 201 H Calculated Osmolality 298 Calcium 8.1 L Ferritin Total Bilirubin 1.6 H AST 69 H ALT 65 H Alkaline Phosphatase 165 H Troponin I 0.12 H* 0.12 H* B-Natriuretic Peptide Serum Total Protein 6.5 Albumin 2.8 L Globulin 3.7 H Albumin/Globulin Ratio 0.8 L Vitamin B12 Folate TSH Thyroxine (T4) 09/11/16 09/11/16 09/11/16 00:23 00:23 00:23 WBC 7.1 RBC 3.44 L Hgb 10.6 L Hct 32.7 L MCV 95.1 MCH 30.8 MCHC 32.4 RDW 25.4 H Plt Count 61 L MPV 12.1 Immature Gran % 0.4 Seg Neutrophils % 89.7 Lymphocytes % 5.1 Monocytes % 4.7 Eosinophils % 0.0 Basophils % 0.1 Neutrophils # 6.4 Lymphocytes # 0.4 L Monocytes # 0.3 Eosinophils # 0.0 Basophils # 0.0 Nucleated RBCs/100 WBC 0.3 H Platelet Estimate Decreased L Large Platelets Present A Immature Plt Fraction 14.0 H Polychromasia 1+ A Hypochromasia Present A Anisocytosis 2+ A Microcytosis Present A Macrocytosis Present A Ovalocytes Acanthocytes (Spur) 1+ A PT 19.7 H INR 1.8 APTT Sodium 132 L Potassium 4.2 Chloride 95 L Carbon Dioxide 22 BUN 60 H Creatinine 5.81 H Est GFR ( Amer) 12 L Est GFR (Non-Af Amer) 10 L BUN/Creatinine Ratio 10 Glucose 162 H Calculated Osmolality 294 Calcium 8.0 L Ferritin Total Bilirubin AST ALT Alkaline Phosphatase Troponin I B-Natriuretic Peptide Serum Total Protein Albumin Globulin Albumin/Globulin Ratio Vitamin B12 Folate TSH Thyroxine (T4) 09/11/16 00:23 WBC RBC Hgb Hct MCV MCH MCHC RDW Plt Count MPV Immature Gran % Seg Neutrophils % Lymphocytes % Monocytes % Eosinophils % Basophils % Neutrophils # Lymphocytes # Monocytes # Eosinophils # Basophils # Nucleated RBCs/100 WBC Platelet Estimate Large Platelets Immature Plt Fraction Polychromasia Hypochromasia Anisocytosis Microcytosis Macrocytosis Ovalocytes Acanthocytes (Spur) PT INR APTT Sodium Potassium Chloride Carbon Dioxide BUN Creatinine Est GFR ( Amer) Est GFR (Non-Af Amer) BUN/Creatinine Ratio Glucose Calculated Osmolality Calcium Ferritin Total Bilirubin AST ALT Alkaline Phosphatase Troponin I B-Natriuretic Peptide > 5000 H Serum Total Protein Albumin Globulin Albumin/Globulin Ratio Vitamin B12 Folate TSH Thyroxine (T4) - Impressions Impressions Guidance Needle Placement Ultrasound 09/10/16 00:00 IMPRESSION: Successful ultrasound and fluoroscopy guided tunneled catheter placement . D/ / Sebastián Porter MD / Sebastián Porter MD Interpreting Provider: Sebastián Porter MD Insertion Tunneled Catheter 09/10/16 00:00 IMPRESSION: Successful ultrasound and fluoroscopy guided tunneled catheter placement . D/ / Sebastián Porter MD / Sebastián Porter MD Interpreting Provider: Sebastián Porter MD Abdomen Ultrasound 09/10/16 08:30 IMPRESSION: 1. Liver has increased echogenicity and coarsened echo texture, which can be seen with fatty infiltration. No focal lesions. 2. Gallstones, sludge and nonspecific gallbladder wall thickening up to 5 mm. No additional sonographic signs of cholecystitis. HIDA scan may be helpful for further evaluation is clinically indicated. D/ / 09/10/2016 09:37:17 Mariia Haji MD / kevin Interpreting Provider: Mariia Haji MD Chest CT 09/10/16 18:36 IMPRESSION: Small bilateral pleural effusions and bilateral lower lobe atelectasis or pneumonitis with bibasilar mucous plugging. Mediastinal adenopathy, which can be reactive or neoplastic. Short-term interval follow-up to resolution is recommended. Atherosclerosis, including coronary artery calcification. Upper abdominal ascites. Bilateral perinephric stranding, which can be reactive or due to pyelonephritis. There is heterogeneous attenuation of both kidneys with lesions of both increased and decreased density, incompletely characterized on this noncontrast exam. Gallbladder sludge. Soft tissue emphysema at the right lower neck and upper right chest adjacent to central venous catheter, presumably iatrogenic from catheter insertion. Correlate with physical exam. Ill-defined low-density within the right hepatic lobe can reflect variable fatty infiltration or underlying hepatic lesion. In the nonacute setting, contrast-enhanced CT of the abdomen pelvis is suggested for further evaluation. D/ / Candelario Prado MD / Candelario Prado MD Interpreting Provider: Candelario Prado MD Head CT 09/10/16 18:37 IMPRESSION: Atrophy and mild small vessel ischemic disease. D/ / Candelario Prado MD / Candelario Prado MD Interpreting Provider: Candelario Prado MD - ABG Interpretation ABG results: PT/INR, D-dimer PT 19.7 Seconds (9.4-12.1) H 09/11/16 00:23 Consult Discharge Plan - Plan Referrals: Prakash Couch DO [Primary Care Provider] - 09/12/16 3:20 pm (Please follow up as schedule...) <Anatoly Dooley - Last Filed: 09/11/16 20:37> Date of Encounter: 09/11/16 - Constitutional Vitals: Vital Signs Temp Pulse Resp BP Pulse Ox 09/11/16 16:12 25 93 09/11/16 15:17 99.4 F 123 25 98/68 100 09/11/16 13:26 97.9 F 28 104/64 09/11/16 13:15 105/67 09/11/16 13:00 108/54 09/11/16 12:45 102/64 09/11/16 12:30 103/56 09/11/16 12:15 116/68 09/11/16 12:00 111/65 09/11/16 11:45 109/79 09/11/16 11:30 114/66 09/11/16 11:23 97.5 F L 86 20 108/55 91 09/11/16 11:15 106/69 09/11/16 11:00 108/64 09/11/16 10:45 93/63 09/11/16 10:30 99/70 09/11/16 10:16 107 26 96/66 09/11/16 10:15 96/66 09/11/16 10:00 108/68 09/11/16 09:45 97.3 F L 28 104/59 09/11/16 07:17 97.8 F 121 32 97/65 09/11/16 04:09 98.2 F 113 27 107/67 98 09/11/16 03:42 18 100 09/10/16 23:51 97.4 F L 79 18 168/78 96 Intake and Output 09/11/16 09/11/16 09/12/16 08:59 16:59 00:59 Intake Total 620 / 620 100 / 100 Output Total 100 / 100 1600 / 1600 Balance -100 / -100 -980 / -980 100 / 100 Intake: IV Fluids 20 / 20 Argatroban 250 MG In 20 / 20 Dextrose 5% 250 ML @ 2 MCG/KG/MIN 10.54 mls/hr IVC CONT IMTIAZ Rx#: [id number] Oral 0 / 0 100 / 100 Intake, Rinseback and 600 / 600 Flushes Output: Urine 100 / 100 0 / 0 Total Dialysis Output 1600 / 1600 Other: Meal Dinner Percent of Meal Consumed 5% Stool Size Small Stool Consistency formed Stool Color Brown # Voids 1 # Bowel Movements 1 Weight 87.2 kg Blood Glucose* 130 85 Hemodialysis Net Fluid 1000 Removed (mL) Patient Weight 09/12/16 00:59 Weight 87.2 kg Oncology: Obj Data - Labs CBC & Chem 7: 09/11/16 00:23 09/11/16 00:23 Labs: Laboratory Results - last 24 hr 09/10/16 09/10/16 09/11/16 17:54 20:01 00:23 WBC RBC Hgb Hct MCV MCH MCHC RDW Plt Count MPV Immature Gran % Seg Neutrophils % Lymphocytes % Monocytes % Eosinophils % Basophils % Neutrophils # Lymphocytes # Monocytes # Eosinophils # Basophils # Nucleated RBCs/100 WBC Platelet Estimate Large Platelets Immature Plt Fraction Polychromasia Hypochromasia Anisocytosis Microcytosis Macrocytosis Acanthocytes (Spur) PT INR APTT Sodium Potassium Chloride Carbon Dioxide BUN Creatinine Est GFR ( Amer) Est GFR (Non-Af Amer) BUN/Creatinine Ratio Glucose POC Glucose 227 H 245 H Calculated Osmolality Calcium Troponin I 0.12 H* B-Natriuretic Peptide Specimen Rejected 09/11/16 09/11/16 09/11/16 00:23 00:23 00:23 WBC 7.1 RBC 3.44 L Hgb 10.6 L Hct 32.7 L MCV 95.1 MCH 30.8 MCHC 32.4 RDW 25.4 H Plt Count 61 L MPV 12.1 Immature Gran % 0.4 Seg Neutrophils % 89.7 Lymphocytes % 5.1 Monocytes % 4.7 Eosinophils % 0.0 Basophils % 0.1 Neutrophils # 6.4 Lymphocytes # 0.4 L Monocytes # 0.3 Eosinophils # 0.0 Basophils # 0.0 Nucleated RBCs/100 WBC 0.3 H Platelet Estimate Decreased L Large Platelets Present A Immature Plt Fraction 14.0 H Polychromasia 1+ A Hypochromasia Present A Anisocytosis 2+ A Microcytosis Present A Macrocytosis Present A Acanthocytes (Spur) 1+ A PT 19.7 H INR 1.8 APTT Sodium 132 L Potassium 4.2 Chloride 95 L Carbon Dioxide 22 BUN 60 H Creatinine 5.81 H Est GFR ( Amer) 12 L Est GFR (Non-Af Amer) 10 L BUN/Creatinine Ratio 10 Glucose 162 H POC Glucose Calculated Osmolality 294 Calcium 8.0 L Troponin I B-Natriuretic Peptide Specimen Rejected 09/11/16 09/11/16 09/11/16 00:23 00:26 07:13 WBC RBC Hgb Hct MCV MCH MCHC RDW Plt Count MPV Immature Gran % Seg Neutrophils % Lymphocytes % Monocytes % Eosinophils % Basophils % Neutrophils # Lymphocytes # Monocytes # Eosinophils # Basophils # Nucleated RBCs/100 WBC Platelet Estimate Large Platelets Immature Plt Fraction Polychromasia Hypochromasia Anisocytosis Microcytosis Macrocytosis Acanthocytes (Spur) PT INR APTT Sodium Potassium Chloride Carbon Dioxide BUN Creatinine Est GFR ( Amer) Est GFR (Non-Af Amer) BUN/Creatinine Ratio Glucose POC Glucose 154 H 130 H Calculated Osmolality Calcium Troponin I B-Natriuretic Peptide > 5000 H Specimen Rejected 09/11/16 09/11/16 09/11/16 12:02 14:11 14:36 WBC RBC Hgb Hct MCV MCH MCHC RDW Plt Count MPV Immature Gran % Seg Neutrophils % Lymphocytes % Monocytes % Eosinophils % Basophils % Neutrophils # Lymphocytes # Monocytes # Eosinophils # Basophils # Nucleated RBCs/100 WBC Platelet Estimate Large Platelets Immature Plt Fraction Polychromasia Hypochromasia Anisocytosis Microcytosis Macrocytosis Acanthocytes (Spur) PT INR APTT 109.3 H D Sodium Potassium Chloride Carbon Dioxide BUN Creatinine Est GFR ( Amer) Est GFR (Non-Af Amer) BUN/Creatinine Ratio Glucose POC Glucose 70 Calculated Osmolality Calcium Troponin I B-Natriuretic Peptide Specimen Rejected Contaminated 09/11/16 09/11/16 16:22 19:25 WBC RBC Hgb Hct MCV MCH MCHC RDW Plt Count MPV Immature Gran % Seg Neutrophils % Lymphocytes % Monocytes % Eosinophils % Basophils % Neutrophils # Lymphocytes # Monocytes # Eosinophils # Basophils # Nucleated RBCs/100 WBC Platelet Estimate Large Platelets Immature Plt Fraction Polychromasia Hypochromasia Anisocytosis Microcytosis Macrocytosis Acanthocytes (Spur) PT INR APTT 92.0 H Sodium Potassium Chloride Carbon Dioxide BUN Creatinine Est GFR ( Amer) Est GFR (Non-Af Amer) BUN/Creatinine Ratio Glucose POC Glucose 85 Calculated Osmolality Calcium Troponin I B-Natriuretic Peptide Specimen Rejected - Impressions Impressions Abdomen Ultrasound 09/10/16 08:30 IMPRESSION: 1. Liver has increased echogenicity and coarsened echo texture, which can be seen with fatty infiltration. No focal lesions. 2. Gallstones, sludge and nonspecific gallbladder wall thickening up to 5 mm. No additional sonographic signs of cholecystitis. HIDA scan may be helpful for further evaluation is clinically indicated. D/ / 09/10/2016 09:37:17 Mariia Haji MD / kevin Interpreting Provider: Mariia Haji MD Chest CT 09/10/16 18:36 IMPRESSION: Small bilateral pleural effusions and bilateral lower lobe atelectasis or pneumonitis with bibasilar mucous plugging. Mediastinal adenopathy, which can be reactive or neoplastic. Short-term interval follow-up to resolution is recommended. Atherosclerosis, including coronary artery calcification. Upper abdominal ascites. Bilateral perinephric stranding, which can be reactive or due to pyelonephritis. There is heterogeneous attenuation of both kidneys with lesions of both increased and decreased density, incompletely characterized on this noncontrast exam. Gallbladder sludge. Soft tissue emphysema at the right lower neck and upper right chest adjacent to central venous catheter, presumably iatrogenic from catheter insertion. Correlate with physical exam. Ill-defined low-density within the right hepatic lobe can reflect variable fatty infiltration or underlying hepatic lesion. In the nonacute setting, contrast-enhanced CT of the abdomen pelvis is suggested for further evaluation. D/ / Candelario Prado MD / Candelario Prado MD Interpreting Provider: Candelario Prado MD Head CT 09/10/16 18:37 IMPRESSION: Atrophy and mild small vessel ischemic disease. D/ / Candelario Prado MD / Candelario Prado MD Interpreting Provider: Candelario Prado MD - ABG Interpretation ABG results: PT/INR, D-dimer PT 19.7 Seconds (9.4-12.1) H 09/11/16 00:23 - Attending Attestation I examined this patient and my medical decision-making was reviewed with the HAND FINISHER/PA/Advanced Practice Nurse/Resident Physician. I agree with the documented findings, disposition and treatment plan as described except to the extent set forth below. Thrombocytopenia slowly improving. Anemia is stable. HIT panel is pending. Based on patient's clinical condition, available results, pretest probability, I do not that he has heparin-induced thrombocytopenia. If heparin-induced, cytopenia panel and returns negative we'll stop Argatroban and start Coumadin as recommended by cardiology. I suspect a seroma cytopenia is likely multifactorial with contusion from his underlying liver and kidney dysfunction. He also has hypothyroidism which may be contributing. We'll start him on a low- dose of Synthroid and monitor his CBCs for improvement. Once he is medically optimal for discharge, we'll arrange for outpatient hematology follow-up in 2-3 weeks.
--- NOTE | 2016-09-11 10:55 | Nephrology Progress Note ---
Date of Encounter: 09/11/16 Time of Encounter: 10:30 - Assessment and Plan (1) End stage renal disease Current Visit: Yes Status: Acute HD today s/p Permacath. Next HD is planned for Friday. Pending SW placement for a chronic dialysis chair. Renal diet, low sodium. Continue to follow a renal protective strategy as able. N (2) Fluid overload Current Visit: Yes Status: Acute Improving with HD. Qualifiers: Hypervolemia type: other Qualified Code(s): E87.79 - Other fluid overload (3) Hyponatremia Current Visit: Yes Status: Chronic Improving with HD. (4) Metabolic acidosis Current Visit: Yes Status: Chronic Improving with HD. Going forward he will not need oral sodium bicarb. (5) HTN (hypertension) Current Visit: Yes Status: Chronic Stable. Qualifiers: Hypertension type: essential hypertension Qualified Code(s): I10 - Essential (primary) hypertension (6) Anemia Current Visit: No Status: Acute Goal Hgb is 10-11 in the setting of ESRD. Qualifiers: Anemia type: unspecified type Qualified Code(s): D64.9 - Anemia, unspecified (7) Sinus pressure Current Visit: Yes Status: Acute He reported having sinus pressure affecting both ears, he said for about 2 weeks. On Friday, he asked me to provide a nasal antihistamine. Subjective Principal diagnosis: HTN, DAH Interval history: Pt was s/e while on HD. He did not affirm N/V/D, cramping. Objective - Vital Signs Vital signs: Vital Signs Temp Pulse Resp BP Pulse Ox 09/11/16 10:16 107 26 96/66 09/11/16 07:17 97.8 F 121 32 97/65 09/11/16 04:09 98.2 F 113 27 107/67 98 09/11/16 03:42 18 100 09/10/16 23:51 97.4 F L 79 18 168/78 96 09/10/16 19:52 97.4 F L 101 18 88/49 98 09/10/16 17:30 102 16 98/60 97 09/10/16 16:30 105 18 95/63 95 09/10/16 16:00 109 18 94/63 96 09/10/16 15:30 104 18 96/70 97 09/10/16 15:15 103 18 93/63 98 09/10/16 15:00 93 16 121/81 97 09/10/16 14:45 97.4 F L 91 16 98/71 98 09/10/16 13:58 96 31 97/71 98 09/10/16 13:53 101 27 96/71 99 09/10/16 13:48 100 30 102/68 96 09/10/16 13:43 103 16 98/76 99 09/10/16 13:38 104 22 96/73 95 09/10/16 13:33 106 20 98/71 100 Intake and Output 09/10/16 09/11/16 09/11/16 23:59 07:59 15:59 Intake Total Output Total 100 / 100 Balance -100 / -100 Intake: IV Fluids Argatroban 250 MG In Dextrose 5% 250 ML @ 2 MCG/KG/MIN 10.54 mls/hr IVC CONT IMTIAZ Rx#: [id number] Output: Urine 100 / 100 Other: Stool Size Small Stool Consistency formed Stool Color Brown # Voids 1 # Bowel Movements 1 Weight 87.2 kg Blood Glucose* 245 130 Patient Weight 09/11/16 23:59 Weight 87.2 kg - General Appearance General appearance: Present: well-developed, well-nourished, appears started age EENT: Present: ATNC, PERRL, mucous membranes moist Neck: Present: supple Respiratory: Present: clear Cardiology: Present: edema, regular rate, regular rhythm, normal S1, normal S2 Dialysis Vascular Access: Venous Catheter (Right tunneled HD catheter) Gastrointestinal: Present: normoactive bowel sounds, no tenderness, no guarding Integumentary: Present: no rash, warm and dry Neurologic: Present: no focal deficit, no asterixis, alert and oriented x3 Musculoskeletal: Present: no deformities, no clubbing Psychiatric: Present: mood/affect appropriate, cooperative - Lab 09/11/16 00:23 09/11/16 00:23 Most recent lab results Calcium 8.0 mg/dL (8.6-10.8) L 09/11/16 00:23 Phosphorus 5.7 mg/dL (2.3-4.7) H 09/07/16 03:55 Magnesium 2.4 mg/dL (1.6-2.6) 09/06/16 04:25 Consult Discharge Plan - Plan Referrals: Prakash Couch DO [Primary Care Provider] - 09/12/16 3:20 pm (Please follow up as schedule...)
--- NOTE | 2016-09-11 11:24 | Pulmonology Consult Note ---
<Romeo Jordan - Last Filed: 09/11/16 14:01> Date of Encounter: 09/11/16 Time of Encounter: 11:16 Assessment and Plan (1) Acute and chronic respiratory failure with hypoxia Current Visit: Yes Status: Acute Mr. Delcid 65-year-old male with known history of COPD, no current PFTs available for viewing. Patient denies using home oxygen, CPAP or BiPAP, breathing treatments or inhalers at home. - Progressive hypoxia in the setting of fluid overload. - Tachypnea, Diffuse expiratory wheezes and diminished bilateral lung bases noticed on examination - Chest CT reviewed which demonstrated bilateral pleural effusions, atelectasis at the bilateral lung bases. The patient's acute hypoxic episodes in the setting of systolic heart failure, fluid overload with a BNP greater than 5000, tachycardia and known COPD produces a differential that includes: 1. COPD exacerbation- possible with the patient's expiratory wheezing, increased oxygen demand and prolonged expiratory phase with acute onset. - Patient currently on 3L nasal cannula oxygen, could benefit from albuterol nebulizer, 40 mg prednisone daily for 5 days, bedside spirometer, doxycycline for COPD exacerbation. 2. HAP- Patient has been here for >48hrs and started to have shortness of breath , tachypnea, hypoxemia requiring nasal cannula oxygen, and radiographic findings that may suggest infiltration. 3. pulmonary embolism- possible with tachycardia, acute hypoxic episode, tachypnea, chest CT without findings of diffuse pulmonary edema. CTA contraindicated given the patient's current renal status he is on hemodialysis. Currently he is undergoing treatment for left ventricular thrombosis and is Argatroban, and pulmonary embolism finding would not change current treatment. 4. metabolic acidosis- Given the patient's acute on chronic renal failure, metabolic imbalance. Patient currently receiving hemodialysis and nephrology is on board. We will monitor with improvement in metabolic imbalance. Plan: - Start albuterol nebulizer - Start Symbicort twice a day patient will need to go home with inhaler. - We will treat for HAP, antibiotic recommendations were vancomycin and pseudomonal coverage. - Consult to respiratory for Acapella - Bilateral lower extremity Doppler for evaluation for lower extremity DVTs. (2) COPD (chronic obstructive pulmonary disease) Current Visit: Yes Status: Chronic Patient has history of COPD diagnosis, no current PFTs available for review. Patient denies the use of home oxygen, BiPAP or CPAP at home and denies the use of any inhalers at home. - Continue current management as above. Qualifiers: COPD type: chronic bronchitis Chronic bronchitis type: simple Qualified Code(s): J41.0 - Simple chronic bronchitis (3) Pleural effusion Current Visit: Yes Status: Acute Bilateral pleural effusions likely secondary to fluid overload in the setting of systolic heart failure and end-stage renal failure requiring dialysis. Do not suspect that this is the main cause of the patient's acute respiratory failure but may be contributing with restriction and lung expansion inducing bilateral lung base atelectasis. - Will likely improve with correction of the patient's volume status. (4) Mediastinal adenopathy Current Visit: Yes Status: Acute Mediastinal adenopathy appreciated on chest CT. This may be malignant or reactive, at this time will likely will need further evaluation to differentiate. At this time given his current medical conditions he is not a good candidate for bronchoscopy with or without needle aspiration. History of Present Illness Consult date: 09/11/16 Requesting physician: Julian Layton Reason for consult: dyspnea, other (mucous plug) Chief complaint: shortness of breath History of present illness: Mr. Delcid 65-year-old male with past medical history of carotid artery stenosis , systolic heart failure, end-stage renal disease now requiring hemodialysis, COPD unspecified was admitted to [facility] on 09/05/2016 with bilateral lower extremity edema that has been progressive and worsening of his renal function. Neurology was consulted regarding Mr. Delcid's worsening of respiratory status. He has known history of COPD without any recent or documented PFTs available but was admitted without requiring any nasal cannula oxygen. Yesterday he started requiring nasal cannula oxygen at 2 L and progressively required increased oxygen between 4 and 5 L to maintain oxygen saturations greater than 90%. Since admission the patient has become progressively more confused according to nursing staff and had an episode of dizziness and falling back onto the patient bed yesterday evening. A chest CT was obtained given the patient's change in respiratory status and mental status. A chest CT demonstrated small bilateral pleural effusions with bilateral lobe atelectasis or pneumonitis with bibasilar mucous plugging. Mr. Delcid was seen and evaluated in the dialysis unit. There is concerns from thousand nurse that is mental status has changed compared to yesterday and is very agitated trying to ambulate out of the dialysis bed while receiving dialysis. Upon discussion Mr. Delcid is alert awake and interactive. He denies any previous difficulties with breathing and has a diagnosis of COPD diagnosed roughly 10 years ago. He states that he smokes 1 pack per day for roughly 30 years and quit one week ago because he was not feeling well. He denies any shortness of breath episodes, feeling of air hunger, chest pain or chest pressure. He denies ever being hospitalized in the past for respiratory issues and does not use any inhalers at home. When asked about his current breathing status he says that it is fine and he has no issues and that he was told he required nasal cannula oxygen and that is why he wearing it. He does admit to a chronic cough with opaque to yellow sputum production. Denies any fevers, chills, night sweats, nausea vomiting diarrhea constipation. He denies feeling like he is working hard to breathe or notices his increased work of breathing. 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 He denies any birds, cats, dogs or any other allergen exposures at home. Past Med Surg Social Fam HX - Past Medical History Medical history: COPD, hypertension, peripheral artery disease (carotid disease) , renal disease Psychiatric history: no psych history - Past Surgical History Surgical History: carotid endarterectomy (left) - Social History Smoking Status: Current every day smoker Packs per day: 5-8 cigarettes x45 years Smokeless Tobacco Status: No Alcohol use: heavy, recent Drug use: none Medications and Allergies Guaifenesin [Mucinex] 600 mg PO 1-2XD PRN 10/07/15 [History] Multivitamin [Multi-Day Vitamins] 1 tab PO DAILY 10/08/15 [History] Calcium Acetate [Phos-LO] 667 mg PO TIDWM 30 Days 10/16/15 [Rx] Sodium Bicarbonate 650 mg PO BID 30 Days 10/16/15 [Rx] Allopurinol [Zyloprim 100 MG] 100 mg PO DAILY #30 tablet 10/20/15 [Rx] Cholecalciferol (D-3) [Vitamin D] 2,000 unit PO DAILY tablet 10/20/15 [Rx] Folic Acid 1 mg PO DAILY tablet 10/20/15 [Rx] Acetaminophen [Tylenol] 650 mg PO Q6HR PRN 09/05/16 [History] Amlodipine Besylate 10 mg PO DAILY PRN 09/05/16 [History] Ipratropium/Albuterol Neb [Duoneb] 3 ml IH Q8HR PRN 09/05/16 [History] Iron Polysaccharide Complex [Pro Fe] 180 mg PO BID 09/05/16 [History] Loratadine [Claritin] 10 mg PO DAILY 09/05/16 [History] Potassium Chloride [K-Tab ER] 20 meq PO BID 09/05/16 [History] Ranitidine HCl [Zantac] 150 mg PO HS 09/05/16 [History] Sodium Chloride 1 gm PO TID 09/05/16 [History] Allergies codeine Allergy (Verified 10/07/15 05:44) Hives All Systems: A 10-system review of systems was performed and is negative for pertinent findings except as documented above in the HPI. - Constitutional Constitutional: no chills, no excessive sweating, no fatigue, no headache(s), no lethargy - EENT Eyes: no loss of vision Ears: no decreased hearing Nose, mouth and throat: dry mouth, no dizziness, no dysphagia, no nasal congestion, no throat swelling - Cardiovascular Cardiovascular: edema, leg edema, no chest pain, no chest pain at rest, no diaphoresis, no dyspnea, no syncope - Respiratory Respiratory: cough, no hemoptysis, no dyspnea on exertion, no wheezing, no change in phlegm color, no pain with cough - Gastrointestinal Gastrointestinal: no diarrhea, no hematemesis, no hematochezia - Neurological Neurological: no confusion, no dizziness, no loss of vision - Allergic/Immunologic Allergic/Immunologic: no wheezing Physical Examination Vital Signs: Vital Signs, Last 4 Hours Temp Pulse Resp BP 09/11/16 10:16 107 26 96/66 09/11/16 07:17 97.8 F 121 32 97/65 General appearance: no acute distress Eyes: nonicteric ENT: oropharynx dry Mallampati (class): 2 Neck: supple, no lymphadenopathy, JVD Effort: mildly labored Inspection: hyperextended, other (Prolonged expiratory phase, tachypnea) Auscultation: left: wheezes (Diffuse bilateral expiratory wheezing), bilateral: rales (Appreciated in bilateral lung bases more so on the right compared to the left) Cardiovascular: irregular rhythm Gastrointestinal: normoactive bowel sounds, soft, non-tender, non-distended Integumentary: normal Extremities: no cyanosis, no clubbing, pink and warm, edema Musculoskeletal: no deformities non-focal exam, pupils equal and round mood appropriate, affect normal Results - Laboratory Findings CBC and BMP: 09/11/16 00:23 09/11/16 00:23 PT/INR, D-dimer PT 19.7 Seconds (9.4-12.1) H 09/11/16 00:23 Abnormal lab findings: Abnormal lab results RBC 3.44 M/mcL (4.19-5.50) L 09/11/16 00:23 Hgb 10.6 g/dL (12.9-16.9) L 09/11/16 00:23 Hct 32.7 % (37.5-50.1) L 09/11/16 00:23 RDW 25.4 % (11.5-14.5) H 09/11/16 00:23 Plt Count 61 K/mcL (140-400) L 09/11/16 00:23 Lymphocytes # 0.4 K/mcL (0.6-4.6) L 09/11/16 00:23 Nucleated RBCs/100 WBC 0.3 /100 WBC (0) H 09/11/16 00:23 Platelet Estimate Decreased (Normal) L 09/11/16 00:23 Large Platelets Present (Not Present) A 09/11/16 00:23 Immature Plt Fraction 14.0 % (1.1-6.1) H 09/11/16 00:23 Polychromasia 1+ (Not Present) A 09/11/16 00:23 Hypochromasia Present (Not Present) A 09/11/16 00:23 Poikilocytosis 1+ (Not Present) A 09/08/16 03:46 Anisocytosis 2+ (Not Present) A 09/11/16 00:23 Microcytosis Present (Not Present) A 09/11/16 00:23 Macrocytosis Present (Not Present) A 09/11/16 00:23 Ovalocytes 1+ (Not Present) A 09/10/16 18:36 Irais Cells 1+ (Not Present) A 09/07/16 03:55 Acanthocytes (Spur) 1+ (Not Present) A 09/11/16 00:23 Retic Hgb Equivalent 40.0 pg (28.61-36.33) H 09/10/16 09:23 PT 19.7 Seconds (9.4-12.1) H 09/11/16 00:23 APTT 60.5 Seconds (26.0-36.0) H 09/10/16 18:36 Heparin Anti-Xa, Unfract 0.28 IU/mL (0.30-0.70) L 09/07/16 03:55 Sodium 132 mEq/L (136-145) L 09/11/16 00:23 Chloride 95 mEq/L (98-109) L 09/11/16 00:23 BUN 60 mg/dL (8-26) H 09/11/16 00:23 Creatinine 5.81 mg/dL (0.72-1.25) H 09/11/16 00:23 Est GFR ( Amer) 12 (> 60) L 09/11/16 00:23 Est GFR (Non-Af Amer) 10 (> 60) L 09/11/16 00:23 Glucose 162 mg/dL (70-99) H 09/11/16 00:23 Calcium 8.0 mg/dL (8.6-10.8) L 09/11/16 00:23 Phosphorus 5.7 mg/dL (2.3-4.7) H 09/07/16 03:55 Iron 23 mcg/dL (65-175) L 09/10/16 09:23 % Saturation 6 % (20-55) L 09/10/16 09:23 Total Bilirubin 1.6 mg/dL (0.2-1.2) H 09/10/16 18:36 AST 69 Units/L (5-34) H 09/10/16 18:36 ALT 65 Units/L (0-55) H 09/10/16 18:36 Alkaline Phosphatase 165 Units/L (38-126) H 09/10/16 18:36 Lactate Dehydrogenase 403 Units/L (159-327) H 09/10/16 09:23 Troponin I 0.12 ng/mL (0-0.03) H* 09/11/16 00:23 B-Natriuretic Peptide > 5000 pg/mL (0-100) H 09/11/16 00:23 Albumin 2.8 g/dL (3.5-5.0) L 09/10/16 18:36 Globulin 3.7 g/dL (2.4-3.5) H 09/10/16 18:36 Albumin/Globulin Ratio 0.8 (1.1-2.2) L 09/10/16 18:36 Vitamin B12 > 2000 pg/mL (213-816) H 09/10/16 10:45 Folate 34.0 ng/mL (7.0-31.4) H 09/10/16 10:45 TSH 5.631 mcIU/mL (0.350-4.840) H 09/10/16 09:23 Thyroxine (T4) 3.54 mcg/dL (4.87-11.72) L 09/10/16 09:23 Urine Protein 100 mg/dL (Neg-Trace) H 09/06/16 02:35 Urine Blood Moderate (Negative) H 09/06/16 02:35 Urine Microscopic RBC 3-5 per hpf (0-3) H 09/06/16 02:35 Ur Squamous Epith Cells Moderate per lpf (None-Few) H 09/06/16 02:35 - Clinical Findings Intake & Output: Intake & Output 09/10/16 09/11/16 09/11/16 23:59 07:59 15:59 Intake Total Output Total 100 / 100 Balance -100 / -100 Weight 87.2 kg Consult Discharge Plan - Plan Referrals: Prakash Couch DO [Primary Care Provider] - 09/12/16 3:20 pm (Please follow up as schedule...) <Michael Cuevas W - Last Filed: 09/11/16 15:16> Date of Encounter: 09/11/16 All Systems: A 10-system review of systems was performed and is negative for pertinent findings except as documented above in the HPI. Physical Examination Vital Signs: Vital Signs, Last 4 Hours Temp Pulse Resp BP Pulse Ox 09/11/16 13:26 97.9 F 28 104/64 09/11/16 13:15 105/67 09/11/16 13:00 108/54 09/11/16 12:45 102/64 09/11/16 12:30 103/56 09/11/16 12:15 116/68 09/11/16 12:00 111/65 09/11/16 11:45 109/79 09/11/16 11:30 114/66 09/11/16 11:23 97.5 F L 86 20 108/55 91 09/11/16 11:15 106/69 Results - Laboratory Findings CBC and BMP: 09/11/16 00:23 09/11/16 00:23 PT/INR, D-dimer PT 19.7 Seconds (9.4-12.1) H 09/11/16 00:23 Abnormal lab findings: Abnormal lab results RBC 3.44 M/mcL (4.19-5.50) L 09/11/16 00:23 Hgb 10.6 g/dL (12.9-16.9) L 09/11/16 00:23 Hct 32.7 % (37.5-50.1) L 09/11/16 00:23 RDW 25.4 % (11.5-14.5) H 09/11/16 00:23 Plt Count 61 K/mcL (140-400) L 09/11/16 00:23 Lymphocytes # 0.4 K/mcL (0.6-4.6) L 09/11/16 00:23 Nucleated RBCs/100 WBC 0.3 /100 WBC (0) H 09/11/16 00:23 Platelet Estimate Decreased (Normal) L 09/11/16 00:23 Large Platelets Present (Not Present) A 09/11/16 00:23 Immature Plt Fraction 14.0 % (1.1-6.1) H 09/11/16 00:23 Polychromasia 1+ (Not Present) A 09/11/16 00:23 Hypochromasia Present (Not Present) A 09/11/16 00:23 Poikilocytosis 1+ (Not Present) A 09/08/16 03:46 Anisocytosis 2+ (Not Present) A 09/11/16 00:23 Microcytosis Present (Not Present) A 09/11/16 00:23 Macrocytosis Present (Not Present) A 09/11/16 00:23 Ovalocytes 1+ (Not Present) A 09/10/16 18:36 Irais Cells 1+ (Not Present) A 09/07/16 03:55 Acanthocytes (Spur) 1+ (Not Present) A 09/11/16 00:23 Retic Hgb Equivalent 40.0 pg (28.61-36.33) H 09/10/16 09:23 PT 19.7 Seconds (9.4-12.1) H 09/11/16 00:23 APTT 109.3 Seconds (26.0-36.0) H D 09/11/16 14:11 Heparin Anti-Xa, Unfract 0.28 IU/mL (0.30-0.70) L 09/07/16 03:55 Sodium 132 mEq/L (136-145) L 09/11/16 00:23 Chloride 95 mEq/L (98-109) L 09/11/16 00:23 BUN 60 mg/dL (8-26) H 09/11/16 00:23 Creatinine 5.81 mg/dL (0.72-1.25) H 09/11/16 00:23 Est GFR ( Amer) 12 (> 60) L 09/11/16 00:23 Est GFR (Non-Af Amer) 10 (> 60) L 09/11/16 00:23 Glucose 162 mg/dL (70-99) H 09/11/16 00:23 Calcium 8.0 mg/dL (8.6-10.8) L 09/11/16 00:23 Phosphorus 5.7 mg/dL (2.3-4.7) H 09/07/16 03:55 Iron 23 mcg/dL (65-175) L 09/10/16 09:23 % Saturation 6 % (20-55) L 09/10/16 09:23 Total Bilirubin 1.6 mg/dL (0.2-1.2) H 09/10/16 18:36 AST 69 Units/L (5-34) H 09/10/16 18:36 ALT 65 Units/L (0-55) H 09/10/16 18:36 Alkaline Phosphatase 165 Units/L (38-126) H 09/10/16 18:36 Lactate Dehydrogenase 403 Units/L (159-327) H 09/10/16 09:23 Troponin I 0.12 ng/mL (0-0.03) H* 09/11/16 00:23 B-Natriuretic Peptide > 5000 pg/mL (0-100) H 09/11/16 00:23 Albumin 2.8 g/dL (3.5-5.0) L 09/10/16 18:36 Globulin 3.7 g/dL (2.4-3.5) H 09/10/16 18:36 Albumin/Globulin Ratio 0.8 (1.1-2.2) L 09/10/16 18:36 Vitamin B12 > 2000 pg/mL (213-816) H 09/10/16 10:45 Folate 34.0 ng/mL (7.0-31.4) H 09/10/16 10:45 TSH 5.631 mcIU/mL (0.350-4.840) H 09/10/16 09:23 Thyroxine (T4) 3.54 mcg/dL (4.87-11.72) L 09/10/16 09:23 Urine Protein 100 mg/dL (Neg-Trace) H 09/06/16 02:35 Urine Blood Moderate (Negative) H 09/06/16 02:35 Urine Microscopic RBC 3-5 per hpf (0-3) H 09/06/16 02:35 Ur Squamous Epith Cells Moderate per lpf (None-Few) H 09/06/16 02:35 - Clinical Findings Intake & Output: Intake & Output 09/10/16 09/11/16 09/11/16 23:59 07:59 15:59 Intake Total 600 / 600 Output Total 100 / 100 1600 / 1600 Balance -100 / -100 -1000 / -1000 Weight 87.2 kg - Attending Attestation I examined this patient and my medical decision-making was reviewed with the POTATO CHIP SORTER/PA/Advanced Practice Nurse/Resident Physician. I agree with the documented findings, disposition and treatment plan as described except to the extent set forth below. Impression: 1. Acute Hypoxic Respiratory failure 2. Suspect Sepsis likely HAP 3. Mediastinal PINEDA 4. COPD 5. HFrEF 6. ESRD Plan: 1. Likely s/t to ?PNA, CHF, ATx. recommend incentive trevin, airway clearance. OOBTc and Ambulation (as tolerated). Wean Fio2 to keep Spo2% around 89-92% 2. Recommend broad coverage for HAP organisms and including aspiration- after obtaining blood, sputum and urine cultures. Treat for 7 days based upon cultures /sensitivities. 3. Likely reactive but with concern by oncology for lymphoproliferative disorder (weight loss, cytopenias) would recommend CT abdomen and pelvis with contrast (after cleared by nephrology) to further delineate if significant abdominal PINEDA would recommend IR biopsy. If no significant PINEDA would faor repeat CT scan in 4-6 weeks to f/u that he is currently high risk to undergo bronchosopy. 4. Start Duonebs scheduled every 4-6 hours. start ICS/LABA 5. Per Cardiology recs 6. Nephrology following undergoing dialysis Pulmonary Will cont to Follow.
--- NOTE | 2016-09-11 11:54 | Event Note ---
Date of Encounter: 09/11/16 Time of Encounter: 11:50 - Cardiology Event Note Discussed with Dr. Rashid; agree with application of LifeVest prior to discharge. Indication: non-ischemic cardiomyopathy with LVEF 10-15%.
[2016-09-11] MEDS ORDERED: Albuterol 2.5 MG/3 ML NEBULIZER IH PRN (12:18)
[2016-09-11] MEDS ORDERED: *HR* Heparin 10,000 UNIT/10 ML VIAL IV PRN (12:29)
[2016-09-11] MEDS ORDERED: Vancomycin (wt based) 1,000 MG VIAL IV SCH (14:00)
[2016-09-11] MEDS ORDERED: Vancomycin 1,250 MG in D5% in Water 250 ML IVPB ONE (15:00)
[2016-09-11] MEDS: Ipratropium/Albuterol Neb 3 ML IH SCH ×2 (16:11→21:27)
--- NOTE | 2016-09-11 16:53 | Internal Med Progress Note ---
Date of Encounter: 09/11/16 Time of Encounter: 10:50 - Assessment and plan (1) LV (left ventricular) mural thrombus Current Visit: Yes Status: Acute Assessment and plan: echo noted, possible lv thrombus in setting of severe systolic dysfunction. 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 no more procedures planned for now, had lhc and permacath placement. will benefit from prison AC. (2) Systolic heart failure Current Visit: Yes Status: Acute Assessment and plan: no history of heart disease, cardiomyopathy with severe systolic dysfunction and an EF of 10-15 % in the setting of esrd, on beta blockers, blood pressure in the lower side, no cosmo inh at this point, LCH done, no inerventions on cardiology stand point, continue heart failure management and AC. Consider ICD as outpatient, in the mean time will start process for life vest. tele monitring. Qualifiers: Heart failure chronicity: unspecified heart failure chronicity Qualified Code(s): I50.20 - Unspecified systolic (congestive) heart failure (3) End stage renal disease Current Visit: Yes Status: Acute Assessment and plan: continue with hd as per nephro, permanent catheter palced. (4) Fluid overload Current Visit: Yes Status: Acute Qualifiers: Hypervolemia type: other Qualified Code(s): E87.79 - Other fluid overload (5) Metabolic acidosis Current Visit: Yes Status: Chronic (6) COPD (chronic obstructive pulmonary disease) Current Visit: Yes Status: Chronic Assessment and plan: evaluated by pulmonology today, underlying copd with mucus plugs and atelectasis in patient with low platelet count and on rgatroban drip. Pulmonology recommended to start broad spectrum antibiotics and systemic steoirds. Qualifiers: COPD type: chronic bronchitis Chronic bronchitis type: simple Qualified Code(s): J41.0 - Simple chronic bronchitis (7) HTN (hypertension) Current Visit: Yes Status: Chronic Qualifiers: Hypertension type: essential hypertension Qualified Code(s): I10 - Essential (primary) hypertension (8) Anemia Current Visit: No Status: Acute Qualifiers: Anemia type: unspecified type Qualified Code(s): D64.9 - Anemia, unspecified (9) Thrombocytopenia Current Visit: Yes Status: Acute Assessment and plan: timing not consistent with HIT, however due to significant drop was started on argatroban drip. follow hem on input. stop h1 chasidy. hiv testing requested. - Subjective Interval history: seen and examined during HD. shortness o breath and tachypneic, however he states feeels better, his at bedside. no fever. productive cugh. chest ct and head ct done last night. reports noted. - Constitutional Vitals: Temp Pulse Resp BP Pulse Ox 99.4 F 123 25 98/68 93 09/11/16 15:17 09/11/16 15:17 09/11/16 16:12 09/11/16 15:09/11/16 16:12 General appearance: Present: cooperative, disheveled, A&O X 3, no acute distress Exam: tachypneic, tachycrdic. - Head Head exam: Present: atraumatic, normocephalic - Eye Eye exam: Present: PERRL, conjuntiva pink, sclera anicteric Pupils: Present: PERRL - Neck Neck exam general surgery: Present: supple, trachea midline. Absent: lymphadenopathy - Respiratory Respiratory exam: Present: decreased breath sounds, rales. Absent: accessory muscle use, rhonchi, wheezes - Cardiovascular Cardiovascular exam: Present: RRR, +S1, +S2. Absent: diastolic murmur, gallop, rubs, systolic murmur - GI/Abdominal GI/Abdominal exam: Present: normal bowel sounds, soft, no peritoneal signs. Absent: distended, tenderness - Extremities Exam Extremities exam: Present: pedal edema, warm, radial pulses palpable and symetrical. Absent: calf tenderness, cyanotic - Neurological Exam Neurological exam: Present: CN II-XII intact, oriented X3, no focal deficits. Absent: pronater drift, facial droop, speech deficit - Skin Skin exam: Present: dry, intact Internal Medicine: Result - Labs CBC & Chem 7: 09/11/16 00:23 09/11/16 00:23 Labs: Short CBC 09/10/16 09/11/16 Range/Units 18:36 00:23 WBC 8.6 7.1 (4.3-11.1) K/mcL Hgb 10.9 L 10.6 L (12.9-16.9) g/dL Hct 34.3 L 32.7 L (37.5-50.1) % Plt Count 62 L 61 L (140-400) K/mcL Neutrophils # 7.9 6.4 (1.6-8.9) K/mcL BMP 09/10/16 09/11/16 18:36 00:23 Sodium 134 L 132 L Potassium 4.1 4.2 Chloride 95 L 95 L Carbon Dioxide 19 22 BUN 54 H 60 H Creatinine 5.56 H 5.81 H Glucose 201 H 162 H Calcium 8.1 L 8.0 L Cardiac Enzymes 09/10/16 09/11/16 Range/Units 18:36 00:23 Troponin I 0.12 H* 0.12 H* (0-0.03) ng/mL Liver Function 09/10/16 Range/Units 18:36 Total Bilirubin 1.6 H (0.2-1.2) mg/dL AST 69 H (5-34) Units/L ALT 65 H (0-55) Units/L Alkaline Phosphatase 165 H (38-126) Units/L Albumin 2.8 L (3.5-5.0) g/dL - ABG Interpretation ABG results: PT/INR, D-dimer PT 19.7 Seconds (9.4-12.1) H 09/11/16 00:23 - Impressions Impressions Abdomen Ultrasound 09/10/16 08:30 IMPRESSION: 1. Liver has increased echogenicity and coarsened echo texture, which can be seen with fatty infiltration. No focal lesions. 2. Gallstones, sludge and nonspecific gallbladder wall thickening up to 5 mm. No additional sonographic signs of cholecystitis. HIDA scan may be helpful for further evaluation is clinically indicated. D/ / 09/10/2016 09:37:17 Mariia Haji MD / earnold Interpreting Provider: Mariia Haji MD Chest CT 09/10/16 18:36 IMPRESSION: Small bilateral pleural effusions and bilateral lower lobe atelectasis or pneumonitis with bibasilar mucous plugging. Mediastinal adenopathy, which can be reactive or neoplastic. Short-term interval follow-up to resolution is recommended. Atherosclerosis, including coronary artery calcification. Upper abdominal ascites. Bilateral perinephric stranding, which can be reactive or due to pyelonephritis. There is heterogeneous attenuation of both kidneys with lesions of both increased and decreased density, incompletely characterized on this noncontrast exam. Gallbladder sludge. Soft tissue emphysema at the right lower neck and upper right chest adjacent to central venous catheter, presumably iatrogenic from catheter insertion. Correlate with physical exam. Ill-defined low-density within the right hepatic lobe can reflect variable fatty infiltration or underlying hepatic lesion. In the nonacute setting, contrast-enhanced CT of the abdomen pelvis is suggested for further evaluation. D/ / Candelario Prado MD / Candelario Prado MD Interpreting Provider: Candelario Prado MD Head CT 09/10/16 18:37 IMPRESSION: Atrophy and mild small vessel ischemic disease. D/ / Candelario Prado MD / Candelario Prado MD Interpreting Provider: Candelario Prado MD Consult Discharge Plan - Plan Referrals: Prakash Couch DO [Primary Care Provider] - 09/12/16 3:20 pm (Please follow up as schedule...)
--- NOTE | 2016-09-11 16:59 | Electrocardiograph Report ---
[address] [place] [address] Test Date: 2016-09-10 Pat Name: Sreekanth Delcid Department: 112 Room: 2A25 Gender: M Manager Forensic: : 1950 Requested By: Julian aLyton Order Number: [id number] Reading MD: Wili Cristobal MD Measurements Intervals [place] Rate: 102 P: 50 [place]: 148 QRS: 32 QRSD: 99 T: 87 QT: 364 QTc: 423 Interpretive Statements SINUS TACHYCARDIA LOW QRS VOLTAGE IN EXTREMITY LEADS SEPTAL MYOCARDIAL INFARCTION, OF INDETERMINATE AGE Electronically Signed On 09-11-2016 16:58:04 EDT by Wili Cristobal MD
[2016-09-11] MEDS: Piperacillin/Tazobactam 3.375 GM in D5% in Water (Mini-Bag+) 100 ML IVPB SCH ×2 (17:45→23:50)
[2016-09-11] MEDS: Budesonide/Formoterol 160/4.5 MDI IH SCH (21:27)
[2016-09-12] MEDS: Ipratropium/Albuterol Neb 3 ML IH SCH ×4 (04:06→20:57)
[2016-09-12 05:04] LABS: INR 4.4; Prothrombin Time 49.6 Seconds (9.4-12.1)
[2016-09-12 05:55] LABS: Hemoglobin 10.1 g/dL (12.9-16.9); Nucleated Red Blood Cells 0.7 /100 WBC (0)
[2016-09-12 05:57] LABS: Hematocrit 29.9 % (37.5-50.1); Immature Platelets 17.2 % (1.1-6.1); Mean Corpuscular HGB Conc 33.8 g/dL (31.6-35.5); Mean Corpuscular Hemoglobin 31.7 pg (28.0-33.3); Mean Corpuscular Volume 93.7 fL (83.0-100.0); Red Blood Count 3.19 M/mcL (4.19-5.50); Red Cell Distribution Width 26.2 % (11.5-14.5)
[2016-09-12 06:25] LABS: Platelet Count 48 K/mcL (140-400)
[2016-09-12 06:35] LABS: Albumin 2.5 g/dL (3.5-5.0); Albumin/Globulin Ratio 0.8 (1.1-2.2); Bilirubin,Direct 1.6 mg/dL (0.0-0.5); Bilirubin,Indirect 0.8 mg/dL (0.0-1.2); Bilirubin,Total 2.4 mg/dL (0.2-1.2); Globulin 3.3 g/dL (2.4-3.5); Potassium 4.4 mEq/L (3.5-4.5); Total Protein 5.8 g/dL (6.0-8.3)
[2016-09-12 06:47] LABS: Monocytes # 0.6 K/mcL (0.0-1.3); Neutrophils # 4.5 K/mcL (1.6-8.9); Platelet Estimate Decreased (Normal)
[2016-09-12] MEDS: Argatroban 250 MG in D5% in Water 250 ML IVC SCH (06:58)
[2016-09-12 07:13] LABS: Activated Partial Thrombo Time 102.2 Seconds (26.0-36.0)
[2016-09-12] MEDS: Calcium Acetate 667 MG CAPSULE PO SCH ×3 (07:58→20:06)
[2016-09-12] MEDS: Multivit/Ca/Min/Fe/FA 1 TAB TABLET PO SCH (07:58)
[2016-09-12] MEDS: Cholecalciferol (D-3) 1,000 UNIT TABLET PO SCH (07:58)
[2016-09-12] MEDS: Folic Acid 1 MG TABLET PO SCH (07:58)
[2016-09-12] MEDS: Metoprolol XL (24 HR) Succ 25 MG TAB.ER.24H PO SCH (07:59)
[2016-09-12] MEDS: Piperacillin/Tazobactam 3.375 GM in D5% in Water (Mini-Bag+) 100 ML IVPB SCH ×2 (07:59→20:04)
[2016-09-12] MEDS: Nicotine 21 MG PATCH.TD24 TD SCH (07:59)
[2016-09-12] MEDS: Fluticasone Propionate Nasal 50 MCG/SPRAY BOTTLE NS SCH (08:00)
--- NOTE | 2016-09-12 08:16 | Nephrology Progress Note ---
Date of Encounter: 09/12/16 Time of Encounter: 08:13 - Assessment and Plan (1) ESRD on dialysis Current Visit: Yes Status: Acute Plan for HD tomorrow Waiting for chair time at [facility] Continue renal diet Avoid nephrotoxins if possible (2) HTN (hypertension) Current Visit: Yes Status: Chronic Currently well controlled per primary team Qualifiers: Hypertension type: essential hypertension Qualified Code(s): I10 - Essential (primary) hypertension (3) Hyponatremia Current Visit: Yes Status: Chronic Stable Subjective Principal diagnosis: HTN, DAH Interval history: Patient seen and examined. States he is feeling ok today Objective - Vital Signs Vital signs: Vital Signs Temp Pulse Resp BP Pulse Ox 09/12/16 07:36 97.8 F 107 23 99/69 100 09/12/16 05:34 97.8 F 121 18 101/55 95 09/12/16 04:06 16 100 09/12/16 00:09 97.5 F L 115 16 98/58 94 09/11/16 21:27 20 96 09/11/16 20:50 98.1 F 120 18 99/67 97 09/11/16 16:12 25 93 09/11/16 15:17 99.4 F 123 25 98/68 100 09/11/16 13:26 97.9 F 28 104/64 09/11/16 13:15 105/67 09/11/16 13:00 108/54 09/11/16 12:45 102/64 09/11/16 12:30 103/56 09/11/16 12:15 116/68 09/11/16 12:00 111/65 09/11/16 11:45 109/79 09/11/16 11:30 114/66 09/11/16 11:23 97.5 F L 86 20 108/55 91 09/11/16 11:15 106/69 09/11/16 11:00 108/64 09/11/16 10:45 93/63 09/11/16 10:30 99/70 09/11/16 10:16 107 26 96/66 09/11/16 10:15 96/66 09/11/16 10:00 108/68 09/11/16 09:45 97.3 F L 28 104/59 Intake and Output 09/11/16 09/12/16 09/12/16 23:59 07:59 15:59 Intake Total 205.5 / 205.5 119.5 / 119.5 Output Total 0 / 0 Balance 205.5 / 205.5 119.5 / 119.5 Intake: IV Fluids 105.5 / 105.5 119.5 / 119.5 Argatroban 250 MG In 5.5 / 5.5 19.5 / 19.5 Dextrose 5% 250 ML @ 2 MCG/KG/MIN 10.54 mls/hr IVC CONT IMTIAZ Rx#: [id number] Zosyn 3.375 GM In 100 / 100 100 / 100 Dextrose 5% (Minibag+) 100 ML 100 ML @ 25 mls/hr IVPB Q8H IMTIAZ Rx#: [id number] Oral 100 / 100 Output: Urine 0 / 0 Other: Meal Dinner Percent of Meal Consumed 5% Weight 87.6 kg Blood Glucose* 85 Patient Weight 09/12/16 23:59 Weight 87.6 kg - General Appearance General appearance: Present: cachectic, frail EENT: Present: ATNC, mucous membranes moist, hearing intact, vision intact Neck: Present: supple Respiratory: Present: clear Cardiology: Present: no edema, normal S1, normal S2 Dialysis Vascular Access: Venous Catheter Gastrointestinal: Present: no tenderness, no guarding Integumentary: Present: warm and dry Neurologic: Present: alert and oriented x3 Psychiatric: Present: mood/affect appropriate, cooperative - Lab 09/12/16 04:41 09/12/16 04:41 Most recent lab results Calcium 8.0 mg/dL (8.6-10.8) L 09/12/16 04:41 Phosphorus 5.7 mg/dL (2.3-4.7) H 09/07/16 03:55 Magnesium 2.4 mg/dL (1.6-2.6) 09/06/16 04:25 Consult Discharge Plan - Plan Referrals: Prakash Couch DO [Primary Care Provider] - 09/12/16 3:20 pm (Please follow up as schedule...)
[2016-09-12] MEDS: Acetaminophen 325 MG TABLET PO PRN (08:20)
[2016-09-12 08:30] LABS: INR 4.1
[2016-09-12 08:34] LABS: Prothrombin Time 46.6 Seconds (9.4-12.1)
--- NOTE | 2016-09-12 08:39 | Pulmonology Progress Note ---
Date of Encounter: 09/12/16 Time of Encounter: 08:37 Assessment and Plan (1) Pneumonia Current Visit: Yes Status: Acute Qualifiers: Pneumonia type: due to unspecified organism Laterality: unspecified laterality Lung location: unspecified part of lung Qualified Code(s): J18.9 - Pneumonia, unspecified organism (2) COPD (chronic obstructive pulmonary disease) Current Visit: Yes Status: Chronic Qualifiers: COPD type: chronic bronchitis Chronic bronchitis type: simple Qualified Code(s): J41.0 - Simple chronic bronchitis (3) Systolic heart failure Current Visit: Yes Status: Acute Qualifiers: Heart failure chronicity: unspecified heart failure chronicity Qualified Code(s): I50.20 - Unspecified systolic (congestive) heart failure (4) ESRD on dialysis Current Visit: Yes Status: Acute (5) Acute and chronic respiratory failure with hypoxia Current Visit: Yes Status: Acute (6) Mediastinal adenopathy Current Visit: Yes Status: Acute Subjective Principal diagnosis: HTN, DAH Interval history: Today patient is more awake and interactive. This was confirmed by the nursing staff. He is remained hemodynamically stable and has had acceptable oxygen saturation on 2-3 L nasal cannula. He says today that he is feeling better his breathing has improved and currently denies any complaints. Has had a cough productive of yellowish sputum He feels an improvement after scheduling bronchodilators Objective PUL Vital signs: Last Vital Signs Temp 97.8 F 09/12/16 07:36 Pulse 107 09/12/16 07:36 Resp 23 09/12/16 07:36 BP 99/69 09/12/16 07:36 Pulse Ox 100 09/12/16 07:36 General appearance: no acute distress Effort: mildly labored Auscultation: bilateral: diminished breath sounds, rales Cardiovascular: regular rate and rhythm Extremities: edema (Bilateral 1+ pitting edema) Results - Laboratory Findings CBC and BMP: 09/12/16 04:41 09/12/16 04:41 PT/INR, D-dimer PT 46.6 Seconds (9.4-12.1) H* 09/12/16 06:57 Abnormal lab findings: Abnormal lab results RBC 3.19 M/mcL (4.19-5.50) L 09/12/16 04:41 Hgb 10.1 g/dL (12.9-16.9) L 09/12/16 04:41 Hct 29.9 % (37.5-50.1) L 09/12/16 04:41 RDW 26.2 % (11.5-14.5) H 09/12/16 04:41 Plt Count 48 K/mcL (140-400) L 09/12/16 04:41 Band Neutrophils % 20.0 % (0-4) H 09/12/16 04:41 Nucleated RBCs/100 WBC 0.7 /100 WBC (0) H 09/12/16 04:41 Platelet Estimate Decreased (Normal) L 09/12/16 04:41 Large Platelets Present (Not Present) A 09/11/16 00:23 Immature Plt Fraction 17.2 % (1.1-6.1) H 09/12/16 04:41 Polychromasia 1+ (Not Present) A 09/11/16 00:23 Hypochromasia Present (Not Present) A 09/11/16 00:23 Poikilocytosis 1+ (Not Present) A 09/08/16 03:46 Anisocytosis 2+ (Not Present) A 09/11/16 00:23 Microcytosis Present (Not Present) A 09/11/16 00:23 Macrocytosis Present (Not Present) A 09/11/16 00:23 Ovalocytes 1+ (Not Present) A 09/10/16 18:36 [place] Cells 1+ (Not Present) A 09/07/16 03:55 Acanthocytes (Spur) 1+ (Not Present) A 09/11/16 00:23 Retic Hgb Equivalent 40.0 pg (28.61-36.33) H 09/10/16 09:23 PT 46.6 Seconds (9.4-12.1) H* 09/12/16 06:57 APTT 102.2 Seconds (26.0-36.0) H 09/12/16 06:57 Heparin Anti-Xa, Unfract 0.28 IU/mL (0.30-0.70) L 09/07/16 03:55 Sodium 134 mEq/L (136-145) L 09/12/16 04:41 Chloride 92 mEq/L (98-109) L 09/12/16 04:41 BUN 38 mg/dL (8-26) H D 09/12/16 04:41 Creatinine 4.78 mg/dL (0.72-1.25) H 09/12/16 04:41 Est GFR ( Amer) 15 (> 60) L 09/12/16 04:41 Est GFR (Non-Af Amer) 12 (> 60) L 09/12/16 04:41 Calcium 8.0 mg/dL (8.6-10.8) L 09/12/16 04:41 Phosphorus 5.7 mg/dL (2.3-4.7) H 09/07/16 03:55 Iron 23 mcg/dL (65-175) L 09/10/16 09:23 % Saturation 6 % (20-55) L 09/10/16 09:23 Total Bilirubin 2.4 mg/dL (0.2-1.2) H 09/12/16 04:41 Direct Bilirubin 1.6 mg/dL (0.0-0.5) H 09/12/16 04:41 AST 55 Units/L (5-34) H 09/12/16 04:41 Lactate Dehydrogenase 403 Units/L (159-327) H 09/10/16 09:23 Troponin I 0.12 ng/mL (0-0.03) H* 09/11/16 00:23 B-Natriuretic Peptide > 5000 pg/mL (0-100) H 09/11/16 00:23 Serum Total Protein 5.8 g/dL (6.0-8.3) L 09/12/16 04:41 Albumin 2.5 g/dL (3.5-5.0) L 09/12/16 04:41 Albumin/Globulin Ratio 0.8 (1.1-2.2) L 09/12/16 04:41 Vitamin B12 > 2000 pg/mL (213-816) H 09/10/16 10:45 Folate 34.0 ng/mL (7.0-31.4) H 09/10/16 10:45 TSH 5.631 mcIU/mL (0.350-4.840) H 09/10/16 09:23 Thyroxine (T4) 3.54 mcg/dL (4.87-11.72) L 09/10/16 09:23 Urine Protein 100 mg/dL (Neg-Trace) H 09/06/16 02:35 Urine Blood Moderate (Negative) H 09/06/16 02:35 Urine Microscopic RBC 3-5 per hpf (0-3) H 09/06/16 02:35 Ur Squamous Epith Cells Moderate per lpf (None-Few) H 09/06/16 02:35 - Clinical Findings Intake & Output: Intake & Output 09/11/16 09/12/16 09/12/16 23:59 07:59 15:59 Intake Total 205.5 / 205.5 819.5 / 819.5 0 / 0 Output Total 0 / 0 Balance 205.5 / 205.5 819.5 / 819.5 0 / 0 Weight 87.6 kg Consult Discharge Plan - Plan Referrals: Prakash Couch DO [Primary Care Provider] - 09/12/16 3:20 pm (Please follow up as schedule...) - Attending Attestation I examined this patient and my medical decision-making was reviewed with the DANDY OPERATOR/PA/Advanced Practice Nurse/Resident Physician. I agree with the documented findings, disposition and treatment plan as described except to the extent set forth below. Impression: 1. Acute Hypoxic Respiratory failure 2. Suspect Sepsis likely HAP 3. Mediastinal PINEDA 4. COPD 5. HFrEF 6. ESRD Plan: 1. Likely s/t PNA, CHF, ATx. recommend incentive trevin, airway clearance. OOBTc and Ambulation (as tolerated). Wean Fio2 to keep Spo2% around 89-92% 2. Recommend broad coverage for HAP organisms and including aspiration- after obtaining blood, sputum and urine cultures. Treat for 7 days based upon cultures /sensitivities. Can likely deescalate after 48 hours if cultures negative (NGTD) . 3. Likely reactive but with concern by oncology for lymphoproliferative disorder (weight loss, cytopenias) if concern by Oncology for lymphoproliferative disorder by Oncology could consider CT abdomen and pelvis with contrast (after cleared by nephrology) to further delineate if significant abdominal PINEDA otherwise repeat CT scan in 4-6 weeks to reevaluate -he is currently high risk to undergo bronchosopy. 4. Cont Duonebs scheduled every 4-6 hours. Cont Symbicort (patient should be discharged with this along with ILANA 'albuerol' inhaler) 5. Per Cardiology recs 6. Nephrology following undergoing dialysis Please call with any questions Thank you for the consult
[2016-09-12] MEDS: Budesonide/Formoterol 160/4.5 MDI IH SCH ×2 (10:46→20:57)
[2016-09-12] MEDS: Levothyroxine 25 MCG TABLET PO SCH (11:14)
--- NOTE | 2016-09-12 13:05 | Venous Imaging Report ---
LE Venous Duplex Patient Name:Sreekanth Delcid Order Number:[id number] Procedure Date:09/11/2016 Date:1950ge:65 yrs Gender:Male Location:[facility] Room #: 2A25 Ecdis N Navigation Operator:Sahra Villa Referring MD:Romeo Jordan DO salon leader:Prakash Couch DO Reading MD:Stevan Girard MD Primary Indications:Possible BLE DVT Secondary Indications: Impressions: Normal bilateral lower extremity deep and superficial venous exam. Recommendations: After imaging the patient returned to their room. Findings Prior Study: No prior study available for comparison. Lower Extremity Venous Duplex Side Vein Compress Spontaneous Flow Augment Diameter (cm) Depth (cm) Right Distal Iliac Normal Yes Phasic Yes Right Common Femoral Normal Yes Phasic Yes Right Superficial Femoral Normal Yes Phasic Yes Right Popliteal Normal Yes Phasic Yes Right Posterior Tibial Normal Yes Phasic Yes Right Peroneal Normal Yes Phasic Yes Right Saphenofemoral [place] Normal Yes Phasic Yes Right Great Saphenous Normal Yes Phasic Yes Right Lesser Saphenous Normal Yes Phasic Yes Left Distal Iliac Normal Yes Phasic Yes Left Common Femoral Normal Yes Phasic Yes Left Superficial Femoral Normal Yes Phasic Yes Left Popliteal Normal Yes Phasic Yes Left Posterior Tibial Normal Yes Phasic Yes Left Peroneal Normal Yes Phasic Yes Left Saphenofemoral [place] Normal Yes Phasic Yes Left Great Saphenous Normal Yes Phasic Yes Left Lesser Saphenous Normal Yes Phasic Yes Updated by Stevan Girard MD on 09/12/2016 12:59:13 PM electronically signed on 09/12/2016 12:59:29 PM with status of Final
--- NOTE | 2016-09-12 13:28 | Oncology Inp Progress Note ---
<Stevan Brian - Last Filed: 09/12/16 13:24> Date of Encounter: 09/12/16 Time of Encounter: 13:24 (1) Thrombocytopenia Current Visit: Yes Status: Acute Assessment and plan: Patient's today's platelet count was 48, less than yesterday, but still low suspicious for heparin-induced thrombocytopenia, as he received heparin for hemodialysis several days ago, continue to hold heparin drip for now, B12 and folate level were elevated, HIT panel is still pending, haptoglobin, MMA, blood smear are pending, patient has a normal percent reticulocyte count, low free T4 noted, 25 g Synthroid has been started today, unclear etiology of patient's thrombocytopenia at this point but could be multifactorial from his liver and kidney dysfunction, continue to closely monitor patient's platelet counts. (2) Left ventricular thrombus Current Visit: Yes Status: Acute Assessment and plan: Likely related to his cardiomyopathy with 10-15% of left ventricular ejection fraction, continue argatroban for now and switch to oral anticoagulation agent recommended by cardiology team upon discharge, follow-up with hematology/ oncology clinic as outpatient in 2-3 weeks. Oncology: Subj Interval history: Patient seen and examined. Patient does not have any pain or complain this morning. - Constitutional Vitals: Vital Signs Temp Pulse Resp BP Pulse Ox 09/12/16 10:58 97.6 F 69 20 86/57 97 09/12/16 10:41 18 86/57 97 09/12/16 07:36 97.8 F 107 23 99/69 100 09/12/16 05:34 97.8 F 121 18 101/55 95 09/12/16 04:06 16 100 09/12/16 00:09 97.5 F L 115 16 98/58 94 09/11/16 21:27 20 96 09/11/16 20:50 98.1 F 120 18 99/67 97 09/11/16 16:12 25 93 09/11/16 15:17 99.4 F 123 25 98/68 100 09/11/16 13:26 97.9 F 28 104/64 Intake and Output 09/11/16 09/12/16 09/12/16 23:59 07:59 15:59 Intake Total 205.5 / 205.5 819.5 / 819.5 120 / 120 Output Total 0 / 0 0 / 0 Balance 205.5 / 205.5 819.5 / 819.5 120 / 120 Intake: IV Fluids 105.5 / 105.5 119.5 / 119.5 0 / 0 Argatroban 250 MG In 5.5 / 5.5 19.5 / 19.5 0 / 0 Dextrose 5% 250 ML @ 2 MCG/KG/MIN 10.54 mls/hr IVC CONT [facility] Rx#: [id number] Zosyn 3.375 GM In 100 / 100 100 / 100 Dextrose 5% (Minibag+) 100 ML 100 ML @ 25 mls/hr IVPB Q8H [facility] Rx#: [id number] Oral 100 / 100 700 / 700 120 / 120 Output: Urine 0 / 0 0 / 0 Other: Meal Dinner Lunch Percent of Meal Consumed 5% 5% Weight 87.6 kg Blood Glucose* 85 Patient Weight 09/12/16 23:59 Weight 87.6 kg General appearance: cooperative, no acute distress - Eye Eye exam: Present: EOMI, PERRL Pupils: Present: PERRL - Respiratory Respiratory exam: Present: CTAB. Absent: rales, respiratory distress, wheezes - Cardiovascular Cardiovascular exam: Present: RRR, +S1, +S2. Absent: clicks, rubs, systolic murmur - GI/Abdominal GI/Abdominal exam: Present: normal bowel sounds, soft. Absent: rebound, rigid, tenderness - Extremities Exam Extremities exam: Absent: calf tenderness, pedal edema, tenderness Oncology: Obj Data - Labs CBC & Chem 7: 09/12/16 04:41 09/12/16 04:41 Labs: Laboratory Results - last 24 hr 09/10/16 09/10/16 09/11/16 17:54 20:01 00:26 WBC RBC Hgb Hct MCV MCH MCHC RDW Plt Count MPV Seg Neutrophils % Band Neutrophils % Lymphocytes % Monocytes % Neutrophils # Lymphocytes # Monocytes # Nucleated RBCs/100 WBC Platelet Estimate Immature Plt Fraction PT INR APTT Sodium Potassium Chloride Carbon Dioxide BUN Creatinine Est GFR ( Amer) Est GFR (Non-Af Amer) BUN/Creatinine Ratio Glucose POC Glucose 227 H 245 H 154 H Calculated Osmolality Calcium Total Bilirubin Direct Bilirubin Indirect Bilirubin AST ALT Alkaline Phosphatase Serum Total Protein Albumin Globulin Albumin/Globulin Ratio Specimen Rejected 09/11/16 09/11/16 09/11/16 07:13 14:11 14:36 WBC RBC Hgb Hct MCV MCH MCHC RDW Plt Count MPV Seg Neutrophils % Band Neutrophils % Lymphocytes % Monocytes % Neutrophils # Lymphocytes # Monocytes # Nucleated RBCs/100 WBC Platelet Estimate Immature Plt Fraction PT INR APTT 109.3 H D Sodium Potassium Chloride Carbon Dioxide BUN Creatinine Est GFR ( Amer) Est GFR (Non-Af Amer) BUN/Creatinine Ratio Glucose POC Glucose 130 H Calculated Osmolality Calcium Total Bilirubin Direct Bilirubin Indirect Bilirubin AST ALT Alkaline Phosphatase Serum Total Protein Albumin Globulin Albumin/Globulin Ratio Specimen Rejected Contaminated 09/11/16 09/11/16 09/12/16 16:22 19:25 00:27 WBC RBC Hgb Hct MCV MCH MCHC RDW Plt Count MPV Seg Neutrophils % Band Neutrophils % Lymphocytes % Monocytes % Neutrophils # Lymphocytes # Monocytes # Nucleated RBCs/100 WBC Platelet Estimate Immature Plt Fraction PT INR APTT 92.0 H 106.3 H Sodium Potassium Chloride Carbon Dioxide BUN Creatinine Est GFR ( Amer) Est GFR (Non-Af Amer) BUN/Creatinine Ratio Glucose POC Glucose 85 Calculated Osmolality Calcium Total Bilirubin Direct Bilirubin Indirect Bilirubin AST ALT Alkaline Phosphatase Serum Total Protein Albumin Globulin Albumin/Globulin Ratio Specimen Rejected 09/12/16 09/12/16 09/12/16 04:41 04:41 04:41 WBC 6.1 RBC 3.19 L Hgb 10.1 L Hct 29.9 L MCV 93.7 MCH 31.7 MCHC 33.8 RDW 26.2 H Plt Count 48 L MPV TNP Seg Neutrophils % 54.0 Band Neutrophils % 20.0 H Lymphocytes % 16.0 Monocytes % 10.0 Neutrophils # 4.5 Lymphocytes # 1.0 Monocytes # 0.6 Nucleated RBCs/100 WBC 0.7 H Platelet Estimate Decreased L Immature Plt Fraction 17.2 H PT 49.6 H* D INR 4.4 H* D APTT Sodium 134 L Potassium 4.4 Chloride 92 L Carbon Dioxide 22 BUN 38 H D Creatinine 4.78 H Est GFR ( Amer) 15 L Est GFR (Non-Af Amer) 12 L BUN/Creatinine Ratio 8 Glucose 71 POC Glucose Calculated Osmolality 286 Calcium 8.0 L Total Bilirubin 2.4 H Direct Bilirubin 1.6 H Indirect Bilirubin 0.8 AST 55 H ALT 50 Alkaline Phosphatase 125 Serum Total Protein 5.8 L Albumin 2.5 L Globulin 3.3 Albumin/Globulin Ratio 0.8 L Specimen Rejected 09/12/16 09/12/16 09/12/16 06:57 09:38 11:41 WBC RBC Hgb Hct MCV MCH MCHC RDW Plt Count MPV Seg Neutrophils % Band Neutrophils % Lymphocytes % Monocytes % Neutrophils # Lymphocytes # Monocytes # Nucleated RBCs/100 WBC Platelet Estimate Immature Plt Fraction PT 46.6 H* INR 4.1 APTT 102.2 H 102.9 H 104.2 H Sodium Potassium Chloride Carbon Dioxide BUN Creatinine Est GFR ( Amer) Est GFR (Non-Af Amer) BUN/Creatinine Ratio Glucose POC Glucose Calculated Osmolality Calcium Total Bilirubin Direct Bilirubin Indirect Bilirubin AST ALT Alkaline Phosphatase Serum Total Protein Albumin Globulin Albumin/Globulin Ratio Specimen Rejected 09/12/16 12:36 WBC RBC Hgb Hct MCV MCH MCHC RDW Plt Count MPV Seg Neutrophils % Band Neutrophils % Lymphocytes % Monocytes % Neutrophils # Lymphocytes # Monocytes # Nucleated RBCs/100 WBC Platelet Estimate Immature Plt Fraction PT INR APTT 97.5 H Sodium Potassium Chloride Carbon Dioxide BUN Creatinine Est GFR ( Amer) Est GFR (Non-Af Amer) BUN/Creatinine Ratio Glucose POC Glucose Calculated Osmolality Calcium Total Bilirubin Direct Bilirubin Indirect Bilirubin AST ALT Alkaline Phosphatase Serum Total Protein Albumin Globulin Albumin/Globulin Ratio Specimen Rejected - ABG Interpretation ABG results: PT/INR, D-dimer PT 46.6 Seconds (9.4-12.1) H* 09/12/16 06:57 Consult Discharge Plan - Plan Referrals: Anders James DO [Resident] - 09/25/16 4:00 pm Anatoly Dooley MD [Partnered Physician] - 10/10/16 10:10 am <Anatoly Dooley - Last Filed: 09/13/16 08:01> Date of Encounter: 09/13/16 - Constitutional Vitals: Vital Signs Temp Pulse Resp BP Pulse Ox 09/13/16 07:00 112 21 97/81 98 09/13/16 06:00 113 13 87/55 97 09/13/16 04:57 21 94/39 09/13/16 04:27 97.3 F L 09/13/16 04:00 96.1 F L 118 21 90/72 95 09/13/16 03:00 115 13 105/81 93 09/13/16 02:00 116 27 108/82 94 09/13/16 01:00 118 28 117/84 96 09/13/16 00:31 96.9 F L 09/13/16 00:00 119 09/12/16 23:00 119 15 108/77 97 09/12/16 22:00 121 14 117/87 09/12/16 21:00 124 19 106/84 84 09/12/16 20:00 99 29 74/57 85 09/12/16 19:00 99 22 98 09/12/16 18:45 99 15 80/62 95 09/12/16 18:10 97 F L 101 14 73/63 99 09/12/16 18:05 101 09/12/16 17:49 106 24 74/58 86 09/12/16 15:58 102 24 80/56 94 09/12/16 15:52 97.5 F L 101 22 74/52 100 09/12/16 15:45 101 24 78/54 90 09/12/16 15:09 102 24 82/56 88 09/12/16 14:52 101 24 78/48 97 09/12/16 14:40 106 22 78/46 96 09/12/16 14:20 104 22 81/58 94 09/12/16 14:02 97.6 F 103 24 78/54 97 09/12/16 14:01 93/62 09/12/16 10:58 97.6 F 69 20 86/57 97 09/12/16 10:41 18 86/57 97 09/12/16 07:36 97.8 F 107 23 99/69 100 Intake and Output 09/12/16 09/13/16 09/13/16 16:59 00:59 08:59 Intake Total 120 / 120 700 / 700 500 / 500 Output Total 0 / 0 50 / 50 123 / 123 Balance 120 / 120 650 / 650 377 / 377 Intake: IV Fluids 0 / 0 700 / 700 500 / 500 ALBURX 5% 12.5 gm In 250 500 / 500 ml @ 60 mls/hr IVC . Q4H10M [facility] Rx#:[id number] Argatroban 250 MG In 0 / 0 Dextrose 5% 250 ML @ 2 MCG/KG/MIN 10.54 mls/hr IVC CONT [facility] Rx#: [id number] DOBUTamine Premix 250 MG/ 250 / 250 250 ML 250 mg In 250 ml @ 2.5 MCG/KG/MIN 12.921 mls/hr IVC .[id number] [facility] Rx#:[id number] DOPamine Premix 400mg/ 250 / 250 250mL 400 mg In 250 ml @ 1 MCG/KG/MIN 3.285 mls/hr IVC .Q24H [facility] Rx#: [id number] Zosyn 3.375 GM In 100 / 100 Dextrose 5% (Minibag+) 100 ML 100 ML @ 25 mls/hr IVPB Q12HR [facility] Rx#: [id number] Vancocin 500 MG In 100 / 100 Dextrose 5% (Minibag+) 100 ML 100 ML @ 100 mls/ hr IVPB ONCE ONE Rx#: [id number] Oral 120 / 120 0 / 0 Output: Urine 0 / 0 50 / 50 0 / 0 Fluid Removed by 123 / 123 Prismaflex Other: Meal Lunch Percent of Meal Consumed 5% Stool Size Smear Stool Consistency loose Stool Characteristics Normal for Patient Weight 86.137 kg 86 kg Patient Weight 09/14/16 00:59 Weight 86 kg Oncology: Obj Data - Labs CBC & Chem 7: 09/13/16 03:20 09/13/16 03:20 Labs: Laboratory Results - last 24 hr 09/10/16 09/12/16 09/12/16 09:23 06:57 09:38 WBC RBC Hgb Hct MCV MCH MCHC RDW Plt Count MPV Seg Neutrophils % Lymphocytes % Monocytes % Eosinophils % Neutrophils # Lymphocytes # Monocytes # Eosinophils # Nucleated RBCs/100 WBC Platelet Estimate Immature Plt Fraction Polychromasia Hypochromasia Anisocytosis [place] Cells Haptoglobin 86 PT 46.6 H* INR 4.1 APTT 102.2 H 102.9 H ABG pH ABG pCO2 ABG pO2 ABG HCO3 ABG Total CO2 ABG O2 Saturation ABG Base Excess VBG pH VBG pCO2 VBG pO2 VBG HCO3 Mixed VBG pH Mixed VBG pCO2 Mixed VBG pO2 Mixed VBG Oxyhemoglobin Blood Gas Modality Inspired O2 Sodium Potassium Chloride Carbon Dioxide BUN Creatinine Est GFR ( Amer) Est GFR (Non-Af Amer) BUN/Creatinine Ratio Glucose POC Glucose Calculated Osmolality Lactic Acid Calcium Ionized Calcium Phosphorus Magnesium Total Bilirubin Direct Bilirubin Indirect Bilirubin AST ALT Alkaline Phosphatase Serum Total Protein Albumin Globulin Albumin/Globulin Ratio Vancomycin Trough HSAISTA Screen NONE DETECTED 09/12/16 09/12/16 09/12/16 11:41 12:36 13:53 WBC RBC Hgb Hct MCV MCH MCHC RDW Plt Count MPV Seg Neutrophils % Lymphocytes % Monocytes % Eosinophils % Neutrophils # Lymphocytes # Monocytes # Eosinophils # Nucleated RBCs/100 WBC Platelet Estimate Immature Plt Fraction Polychromasia Hypochromasia Anisocytosis [place] Cells Haptoglobin PT INR APTT 104.2 H 97.5 H 96.7 H ABG pH ABG pCO2 ABG pO2 ABG HCO3 ABG Total CO2 ABG O2 Saturation ABG Base Excess VBG pH VBG pCO2 VBG pO2 VBG HCO3 Mixed VBG pH Mixed VBG pCO2 Mixed VBG pO2 Mixed VBG Oxyhemoglobin Blood Gas Modality Inspired O2 Sodium Potassium Chloride Carbon Dioxide BUN Creatinine Est GFR ( Amer) Est GFR (Non-Af Amer) BUN/Creatinine Ratio Glucose POC Glucose Calculated Osmolality Lactic Acid Calcium Ionized Calcium Phosphorus Magnesium Total Bilirubin Direct Bilirubin Indirect Bilirubin AST ALT Alkaline Phosphatase Serum Total Protein Albumin Globulin Albumin/Globulin Ratio Vancomycin Trough SHAISTA Screen 09/12/16 09/12/16 09/12/16 14:51 17:06 18:05 WBC RBC Hgb Hct MCV MCH MCHC RDW Plt Count MPV Seg Neutrophils % Lymphocytes % Monocytes % Eosinophils % Neutrophils # Lymphocytes # Monocytes # Eosinophils # Nucleated RBCs/100 WBC Platelet Estimate Immature Plt Fraction Polychromasia Hypochromasia Anisocytosis [place] Cells Haptoglobin PT INR APTT ABG pH ABG pCO2 ABG pO2 ABG HCO3 ABG Total CO2 ABG O2 Saturation ABG Base Excess VBG pH VBG pCO2 VBG pO2 VBG HCO3 Mixed VBG pH Mixed VBG pCO2 Mixed VBG pO2 Mixed VBG Oxyhemoglobin Blood Gas Modality Inspired O2 Sodium Potassium Chloride Carbon Dioxide BUN Creatinine Est GFR ( Amer) Est GFR (Non-Af Amer) BUN/Creatinine Ratio Glucose POC Glucose 125 H Calculated Osmolality Lactic Acid 8.3 H* Calcium Ionized Calcium Phosphorus Magnesium Total Bilirubin Direct Bilirubin Indirect Bilirubin AST ALT Alkaline Phosphatase Serum Total Protein Albumin Globulin Albumin/Globulin Ratio Vancomycin Trough 13.3 SHAISTA Screen 09/12/16 09/12/16 09/12/16 18:57 21:53 21:53 WBC RBC Hgb Hct MCV MCH MCHC RDW Plt Count MPV Seg Neutrophils % Lymphocytes % Monocytes % Eosinophils % Neutrophils # Lymphocytes # Monocytes # Eosinophils # Nucleated RBCs/100 WBC Platelet Estimate Immature Plt Fraction Polychromasia Hypochromasia Anisocytosis [place] Cells Haptoglobin PT 38.6 H INR 3.4 APTT 94.3 H 92.8 H ABG pH ABG pCO2 ABG pO2 ABG HCO3 ABG Total CO2 ABG O2 Saturation ABG Base Excess VBG pH VBG pCO2 VBG pO2 VBG HCO3 Mixed VBG pH Mixed VBG pCO2 Mixed VBG pO2 Mixed VBG Oxyhemoglobin Blood Gas Modality Inspired O2 Sodium Potassium Chloride Carbon Dioxide BUN Creatinine Est GFR ( Amer) Est GFR (Non-Af Amer) BUN/Creatinine Ratio Glucose POC Glucose Calculated Osmolality Lactic Acid 11.6 H* Calcium Ionized Calcium Phosphorus Magnesium Total Bilirubin Direct Bilirubin Indirect Bilirubin AST ALT Alkaline Phosphatase Serum Total Protein Albumin Globulin Albumin/Globulin Ratio Vancomycin Trough SHAISTA Screen 09/12/16 09/13/16 09/13/16 23:00 00:03 00:03 WBC RBC Hgb Hct MCV MCH MCHC RDW Plt Count MPV Seg Neutrophils % Lymphocytes % Monocytes % Eosinophils % Neutrophils # Lymphocytes # Monocytes # Eosinophils # Nucleated RBCs/100 WBC Platelet Estimate Immature Plt Fraction Polychromasia Hypochromasia Anisocytosis [place] Cells Haptoglobin PT 41.4 H INR 3.7 APTT 93.4 H ABG pH 7.36 ABG pCO2 25 L ABG pO2 126 H ABG HCO3 14.1 L ABG Total CO2 14.9 L ABG O2 Saturation 99 H ABG Base Excess -9.8 L VBG pH VBG pCO2 VBG pO2 VBG HCO3 Mixed VBG pH Mixed VBG pCO2 Mixed VBG pO2 Mixed VBG Oxyhemoglobin Blood Gas Modality [place] Inspired O2 44 Sodium Potassium Chloride Carbon Dioxide BUN Creatinine Est GFR ( Amer) Est GFR (Non-Af Amer) BUN/Creatinine Ratio Glucose POC Glucose Calculated Osmolality Lactic Acid 13.9 H* Calcium Ionized Calcium Phosphorus Magnesium Total Bilirubin Direct Bilirubin Indirect Bilirubin AST ALT Alkaline Phosphatase Serum Total Protein Albumin Globulin Albumin/Globulin Ratio Vancomycin Trough SHAISTA Screen 09/13/16 09/13/16 09/13/16 01:08 01:08 01:08 WBC 10.2 D RBC 3.35 L Hgb 10.2 L Hct 32.8 L MCV 97.9 MCH 30.4 MCHC 31.1 L RDW 26.4 H Plt Count 57 L MPV TNP Seg Neutrophils % 82.0 Lymphocytes % 12.0 Monocytes % 4.0 Eosinophils % 2.0 Neutrophils # 8.4 Lymphocytes # 1.2 Monocytes # 0.4 Eosinophils # 0.2 Nucleated RBCs/100 WBC 0.2 H Platelet Estimate Decreased L Immature Plt Fraction 17.8 H Polychromasia 1+ A Hypochromasia Present A Anisocytosis 3+ A [place] Cells Haptoglobin PT INR APTT ABG pH ABG pCO2 ABG pO2 ABG HCO3 ABG Total CO2 ABG O2 Saturation ABG Base Excess VBG pH VBG pCO2 VBG pO2 VBG HCO3 Mixed VBG pH 7.24 L Mixed VBG pCO2 32 L Mixed VBG pO2 61 H Mixed VBG Oxyhemoglobin 87.9 H Blood Gas Modality Inspired O2 Sodium 133 L Potassium 5.1 H Chloride 91 L Carbon Dioxide 12 L BUN 50 H D Creatinine 5.52 H Est GFR ( Amer) 13 L Est GFR (Non-Af Amer) 11 L BUN/Creatinine Ratio 9 Glucose 64 L POC Glucose Calculated Osmolality 287 Lactic Acid Calcium 8.1 L Ionized Calcium Phosphorus Magnesium Total Bilirubin Direct Bilirubin Indirect Bilirubin AST ALT Alkaline Phosphatase Serum Total Protein Albumin Globulin Albumin/Globulin Ratio Vancomycin Trough SHAISAT Screen 09/13/16 09/13/16 09/13/16 03:20 03:20 03:20 WBC 10.8 RBC 3.34 L Hgb 10.2 L Hct 33.6 L MCV 100.6 H MCH 30.5 MCHC 30.4 L RDW 26.5 H Plt Count 60 L MPV TNP Seg Neutrophils % 78.0 Lymphocytes % 12.0 Monocytes % 10.0 Eosinophils % Neutrophils # 8.4 Lymphocytes # 1.3 Monocytes # 1.1 Eosinophils # Nucleated RBCs/100 WBC 0.3 H Platelet Estimate Decreased L Immature Plt Fraction 18.4 H Polychromasia Hypochromasia Present A Anisocytosis 3+ A [place] Cells 1+ A Haptoglobin PT INR APTT ABG pH ABG pCO2 ABG pO2 ABG HCO3 ABG Total CO2 ABG O2 Saturation ABG Base Excess VBG pH VBG pCO2 VBG pO2 VBG HCO3 Mixed VBG pH Mixed VBG pCO2 Mixed VBG pO2 Mixed VBG Oxyhemoglobin Blood Gas Modality Inspired O2 Sodium 132 L Potassium 5.2 H Chloride 90 L Carbon Dioxide 10 L* BUN 51 H Creatinine 5.85 H Est GFR ( Amer) 12 L Est GFR (Non-Af Amer) 10 L BUN/Creatinine Ratio 9 Glucose 93 POC Glucose Calculated Osmolality 287 Lactic Acid 19.2 H* Calcium 8.0 L Ionized Calcium 0.88 L Phosphorus 7.4 H Magnesium 2.2 Total Bilirubin 2.6 H Direct Bilirubin 2.1 H Indirect Bilirubin 0.5 AST 71 H ALT 46 Alkaline Phosphatase 116 Serum Total Protein 6.3 Albumin 2.7 L Globulin 3.6 H Albumin/Globulin Ratio 0.8 L Vancomycin Trough 20.7 H* SHAISTA Screen 09/13/16 09/13/16 03:20 03:58 WBC RBC Hgb Hct MCV MCH MCHC RDW Plt Count MPV Seg Neutrophils % Lymphocytes % Monocytes % Eosinophils % Neutrophils # Lymphocytes # Monocytes # Eosinophils # Nucleated RBCs/100 WBC Platelet Estimate Immature Plt Fraction Polychromasia Hypochromasia Anisocytosis [place] Cells Haptoglobin PT 43.6 H* INR 3.9 APTT 98.0 H ABG pH ABG pCO2 ABG pO2 ABG HCO3 ABG Total CO2 ABG O2 Saturation ABG Base Excess VBG pH 7.15 L* VBG pCO2 36 L VBG pO2 52 H VBG HCO3 12.5 L Mixed VBG pH Mixed VBG pCO2 Mixed VBG pO2 Mixed VBG Oxyhemoglobin Blood Gas Modality Inspired O2 Sodium Potassium Chloride Carbon Dioxide BUN Creatinine Est GFR ( Amer) Est GFR (Non-Af Amer) BUN/Creatinine Ratio Glucose POC Glucose Calculated Osmolality Lactic Acid Calcium Ionized Calcium Phosphorus Magnesium Total Bilirubin Direct Bilirubin Indirect Bilirubin AST ALT Alkaline Phosphatase Serum Total Protein Albumin Globulin Albumin/Globulin Ratio Vancomycin Trough SHAISTA Screen - Impressions Impressions Abdomen/Pelvis CT 09/13/16 00:54 IMPRESSION: 3 cm curvilinear filling defect in the apex of the left ventricle suspicious for an acute clot. Correlation with cardiac echo may be helpful. There are high-grade stenoses of the renal arteries, right greater than left. Patchy diminished enhancement of the kidneys more pronounced on the right may be on a vascular basis. Superimposed inflammatory/edematous change of pyelonephritis particularly in the upper pole of the left kidney cannot be excluded. High-grade bilateral common iliac artery stenoses. Short segment complete occlusion on the left cannot be excluded. Free fluid in the abdomen and pelvis has an attenuation greater than that of simple fluid. Complex/hemorrhagic fluid is suspected. Diffuse body edema. Sigmoid colon diverticulosis. D/ / Stevan Prado MD / Stevan Prado MD Interpreting Provider: Stevan Prado MD Chest CT 09/13/16 00:54 IMPRESSION: There is mild [id number]-right bilateral pleural fluid and bibasilar airspace disease. Disease has increased slightly on the left. Mediastinal adenopathy has not changed significantly. There is a irregular filling defect within the cardiac apex highly suspicious for clot. Correlation with cardiac echo may be helpful. D/ / Stevan Prado MD / Stevan Prado MD Interpreting Provider: Stevan Prado MD - ABG Interpretation ABG results: ABG ABG pH 7.36 pH Units (7.32-7.45) 09/12/16 23:00 ABG pCO2 25 mmHg (35-45) L 09/12/16 23:00 ABG pO2 126 mmHg (85-104) H 09/12/16 23:00 ABG O2 Saturation 99 % (95-98) H 09/12/16 23:00 PT/INR, D-dimer PT 43.6 Seconds (9.4-12.1) H* 09/13/16 03:20 - Attending Attestation I examined this patient and my medical decision-making was reviewed with the LASER ENGRAVER/PA/Advanced Practice Nurse/Resident Physician. I agree with the documented findings, disposition and treatment plan as described except to the extent set forth below. 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 HIT panel pending. Has had significant decline in her overall condition and now in ICU for multiorgan failure. CRRT for renal failure. Platelet count stable. Argatroban on hold due to coagulopathy with critical illness. My suspicion for JIMY is low and patient can certainly be transitioned to Coumadin(per previous cardio recommendations) for his mural thrombus. Suspect his cytopenias are multifactorial with contribution from sepsis, critical illness, previously documented folate deficiency and hypothyroidism. Smear review by path is pending. Continue low dose synthroid for hypothyroidism. Plse send Hep C Ab d/t TP/alb dissociation. Undiagnosed Hep C can present immune based thrombocytopenia. Continue supportive measures as you are doing. Will follow along.
[2016-09-12 13:50] LABS: ANA IgG by ELISA NONE DETECTED (None Detected); Haptoglobin 86 mg/dL (30-200)
[2016-09-12] MEDS ORDERED: SODIUM CHLORIDE 0.9% IVC SCH (14:15)
[2016-09-12] MEDS ORDERED: ARGATROBAN IVC SCH (14:15)
--- NOTE | 2016-09-12 15:32 | Pulmonology Consult Note ---
Date of Encounter: 09/12/16 Time of Encounter: 15:32 Past Med Surg Social Fam HX - Past Medical History Medical history: COPD, hypertension, peripheral artery disease (carotid disease) , renal disease Psychiatric history: no psych history - Past Surgical History Surgical History: carotid endarterectomy (left) - Social History Smoking Status: Current every day smoker Packs per day: 5-8 cigarettes x45 years Smokeless Tobacco Status: No Alcohol use: heavy, recent Drug use: none Medications and Allergies Guaifenesin [Mucinex] 600 mg PO 1-2XD PRN 10/07/15 [History] Multivitamin [Multi-Day Vitamins] 1 tab PO DAILY 10/08/15 [History] Calcium Acetate [Phos-LO] 667 mg PO TIDWM 30 Days 10/16/15 [Rx] Sodium Bicarbonate 650 mg PO BID 30 Days 10/16/15 [Rx] Allopurinol [Zyloprim 100 MG] 100 mg PO DAILY #30 tablet 10/20/15 [Rx] Cholecalciferol (D-3) [Vitamin D] 2,000 unit PO DAILY tablet 10/20/15 [Rx] Folic Acid 1 mg PO DAILY tablet 10/20/15 [Rx] Acetaminophen [Tylenol] 650 mg PO Q6HR PRN 09/05/16 [History] Amlodipine Besylate 10 mg PO DAILY PRN 09/05/16 [History] Ipratropium/Albuterol Neb [Duoneb] 3 ml IH Q8HR PRN 09/05/16 [History] Iron Polysaccharide Complex [Pro Fe] 180 mg PO BID 09/05/16 [History] Loratadine [Claritin] 10 mg PO DAILY 09/05/16 [History] Potassium Chloride [K-Tab ER] 20 meq PO BID 09/05/16 [History] Ranitidine HCl [Zantac] 150 mg PO HS 09/05/16 [History] Sodium Chloride 1 gm PO TID 09/05/16 [History] Allergies codeine Allergy (Verified 10/07/15 05:44) Hives All Systems: A 10-system review of systems was performed and is negative for pertinent findings except as documented above in the HPI. Physical Examination Vital Signs: Vital Signs, Last 4 Hours Temp Pulse Resp BP Pulse Ox 09/12/16 15:09 102 24 82/56 88 09/12/16 14:52 101 24 78/48 97 09/12/16 14:40 106 22 78/46 96 09/12/16 14:20 104 22 81/58 94 09/12/16 14:02 97.6 F 103 24 78/54 97 09/12/16 14:01 93/62 Results - Laboratory Findings CBC and BMP: 09/12/16 04:41 09/12/16 04:41 PT/INR, D-dimer PT 46.6 Seconds (9.4-12.1) H* 09/12/16 06:57 Abnormal lab findings: Abnormal lab results RBC 3.19 M/mcL (4.19-5.50) L 09/12/16 04:41 Hgb 10.1 g/dL (12.9-16.9) L 09/12/16 04:41 Hct 29.9 % (37.5-50.1) L 09/12/16 04:41 RDW 26.2 % (11.5-14.5) H 09/12/16 04:41 Plt Count 48 K/mcL (140-400) L 09/12/16 04:41 Band Neutrophils % 20.0 % (0-4) H 09/12/16 04:41 Nucleated RBCs/100 WBC 0.7 /100 WBC (0) H 09/12/16 04:41 Platelet Estimate Decreased (Normal) L 09/12/16 04:41 Large Platelets Present (Not Present) A 09/11/16 00:23 Immature Plt Fraction 17.2 % (1.1-6.1) H 09/12/16 04:41 Polychromasia 1+ (Not Present) A 09/11/16 00:23 Hypochromasia Present (Not Present) A 09/11/16 00:23 Poikilocytosis 1+ (Not Present) A 09/08/16 03:46 Anisocytosis 2+ (Not Present) A 09/11/16 00:23 Microcytosis Present (Not Present) A 09/11/16 00:23 Macrocytosis Present (Not Present) A 09/11/16 00:23 Ovalocytes 1+ (Not Present) A 09/10/16 18:36 [place] Cells 1+ (Not Present) A 09/07/16 03:55 Acanthocytes (Spur) 1+ (Not Present) A 09/11/16 00:23 Retic Hgb Equivalent 40.0 pg (28.61-36.33) H 09/10/16 09:23 PT 46.6 Seconds (9.4-12.1) H* 09/12/16 06:57 APTT 96.7 Seconds (26.0-36.0) H 09/12/16 13:53 Heparin Anti-Xa, Unfract 0.28 IU/mL (0.30-0.70) L 09/07/16 03:55 Sodium 134 mEq/L (136-145) L 09/12/16 04:41 Chloride 92 mEq/L (98-109) L 09/12/16 04:41 BUN 38 mg/dL (8-26) H D 09/12/16 04:41 Creatinine 4.78 mg/dL (0.72-1.25) H 09/12/16 04:41 Est GFR ( Amer) 15 (> 60) L 09/12/16 04:41 Est GFR (Non-Af Amer) 12 (> 60) L 09/12/16 04:41 Lactic Acid 8.3 mmol/L (0.5-2.2) H* 09/12/16 14:51 Calcium 8.0 mg/dL (8.6-10.8) L 09/12/16 04:41 Phosphorus 5.7 mg/dL (2.3-4.7) H 09/07/16 03:55 Iron 23 mcg/dL (65-175) L 09/10/16 09:23 % Saturation 6 % (20-55) L 09/10/16 09:23 Total Bilirubin 2.4 mg/dL (0.2-1.2) H 09/12/16 04:41 Direct Bilirubin 1.6 mg/dL (0.0-0.5) H 09/12/16 04:41 AST 55 Units/L (5-34) H 09/12/16 04:41 Lactate Dehydrogenase 403 Units/L (159-327) H 09/10/16 09:23 Troponin I 0.12 ng/mL (0-0.03) H* 09/11/16 00:23 B-Natriuretic Peptide > 5000 pg/mL (0-100) H 09/11/16 00:23 Serum Total Protein 5.8 g/dL (6.0-8.3) L 09/12/16 04:41 Albumin 2.5 g/dL (3.5-5.0) L 09/12/16 04:41 Albumin/Globulin Ratio 0.8 (1.1-2.2) L 09/12/16 04:41 Vitamin B12 > 2000 pg/mL (213-816) H 09/10/16 10:45 Folate 34.0 ng/mL (7.0-31.4) H 09/10/16 10:45 TSH 5.631 mcIU/mL (0.350-4.840) H 09/10/16 09:23 Thyroxine (T4) 3.54 mcg/dL (4.87-11.72) L 09/10/16 09:23 Urine Protein 100 mg/dL (Neg-Trace) H 09/06/16 02:35 Urine Blood Moderate (Negative) H 09/06/16 02:35 Urine Microscopic RBC 3-5 per hpf (0-3) H 09/06/16 02:35 Ur Squamous Epith Cells Moderate per lpf (None-Few) H 09/06/16 02:35 - Clinical Findings Intake & Output: Intake & Output 09/11/16 09/12/16 09/12/16 23:59 07:59 15:59 Intake Total 205.5 / 205.5 819.5 / 819.5 120 / 120 Output Total 0 / 0 0 / 0 Balance 205.5 / 205.5 819.5 / 819.5 120 / 120 Weight 87.6 kg Consult Discharge Plan - Plan Referrals: Anders James DO [Resident] - 09/25/16 4:00 pm Anatoly Dooley MD [Partnered Physician] - 10/10/16 10:10 am
--- NOTE | 2016-09-12 15:57 | Critical Care Progress Note ---
<Isreal Comer - Last Filed: 09/12/16 16:40> Critical Care Note - Narrative Summary: The high probability of a clinically significant, sudden or life threatening deterioration of the patient's condition required my full and direct attention, intervention and personal management. Mr. Delcid is a 65 year old male with PMHx of ESRD, tobacco use, CAD, arthritis , COPD (not on home oxygen), Barrets esophagus, GERD, CHF. Patient initially came in with worsening LE swelling, dyspnea, poor appetite. Patient was admitted to [facility] on 09/05/16 for CC of worsening LE swelling, dyspnea. Patient initially called his client project coordinator's office because of severe swelling involving his scrotal sac and penis. He was instructed to go to the ED. 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 Patient has had significant hospital stay for multiple issues. Cardiology was consulted for low EF, and patient had LHC done for ischemic evaluation. Furthermore, he was found to have LV thrombus, for which he was placed on heparin gtt. Oncology is consulted for thrombocytopenia and HIT workup. Patient is being treated with broad spectrum antibiotics for sepsis , likely secondary to aspiration. Patient was initially seen as pulmonology consult for acute hypoxic respiratory failure. This is likely multifactorial in nature in setting of systolic CHF, fluid overload, ESRD, COPD exacerbation secondary to sepsis, possible aspiration pneumonia. Today, patient's lactic acid was 8.3, concern for hypoperfusion in setting of sepsis and his many other co morbidities. Patient will be transferred to ICU, will start dopamine drip. will hold argatroban until PTT decreases, then central line will be placed (patient already signed consent). In meantime, will administer 25g 5% albumin. Exam: general: alert and oriented x3, no acute distress. eyes: mildly icteric. Mouth: poor dentition CV: mildly tachycardic, no murmurs noted, bilateral JVD noted. Abdomen: soft, mildly distended, hypoactive bowel sounds. Extremities: no cyanosis, edema, clubbing. Assessment/Plan: Neuro/Sedation: alert and orientated x3, mentating appropriately. CT head on showed atrophy and mild small vessel ischemic disease. Pulmonology: Hx of COPD. CT chest from 09/05/16 showed small bilateral pleural effusions and bilateral lower lobe atalectasis or pneumonitis with bibasilar mucous plugging, mediastinal adenopathy. Acute hypoxic respiratory failure- continue broad spectrum antibiotics, bronchodilators, symbicort Cardiac: Echo from 09/06/16 showed LVEF 10-15%, mildly dilated LV, severe global LV systolic dysfunction, indeterminate diastolic function, LV apex suspicious for thrombus, severely dialted left and right atrium, mild aortic regurg, no evidence of pulmonary HTN. Hx of CHF: cardiac catheterization from 09/11/16 showed nonischemic cardiomyopathy with EF 10-15% by echo. Hx of CAD: stenosis of proximal and mid LAD, mid circumflex and marginal, right coronary. concern for low perfusion in setting of high lactic acid. will start dopamine infusion. Gi/Fluids/Electrolytes/hydration: ultrasound abdomen showed increased echogenicity in liver and coarsened echo texture, as seen with fatty infiltration. no focal lesions, gallstones, sludge and nonspecific gallbladder wall thickening up to 5mm, no additional sonographic signs of cholecystitis. Patient currently hypotensive, will get 500ml 5% albumin tonight. Renal: formerly CKD IV/V now progressed to ESRD on dialysis. nephrology on board. Plan for HD tomorrow, continue renal diet, avoid nephrotoxins. Cr 4.78, around baseline. ID: being treated with vancomycin and zosyn for sepsis, likely secondary to aspiration pneumonia. Lactic acid today 8.3, concern for hypoperfusion, will trend Q6H. Heme/Onc: Patient initially received heparin gtt for LV apex thrombus, then switched to Argatraban, currently on Hold Argatraban so PTT can be low enough to put in central line, then will re start. Hx of folate deficiency, on supplement. chronic anemia, likely secondary to CKD. Oncology on board for thrombocytopenia and possible HIT. HIT panel, haptoglobin, MMA, blood smear path pending, Endocrine: continue levothyroxine for hypothyroidism. Integ: usual skincare as per ICU protocol. Was code activated?: No - CC Time CC start date: 09/12/16 CC start time: 16:09 CC total mins: 45 Critical care time: 30 - 74 mins <Michael Cuevas - Last Filed: 09/13/16 06:49> Critical Care Note - Narrative Summary: I examined this patient and my medical decision-making was reviewed with the SENIOR TRAINING SPECIALIST/PA/Advanced Practice Nurse/Resident Physician. I agree with the documented findings, disposition and treatment plan as described except to the extent set forth below. The high probability of a clinically significant, sudden or life threatening deterioration of the patient's condition required my full and direct attention, intervention and personal management for up to 35 min 65-year-old gentleman with severe heart failure with reduced ejection fraction complicated by end-stage renal disease on dialysis. Over last 48 hours patient has clinically deteriorated now with elevated lactate to greater than 8 suspect decompensated heart failure likely in the setting of sepsis transferring to ICU for vasopressor support overall prognosis remains poor. In addition patient has significant cytopenias include including thrombocytopenia with concern for heparin-induced thrombocytopenia hematology has been consulted for this patient currently being anticoagulated with argatroban and for a mural thrombus. We will also discuss with cardiology regarding further recommendations for management of heart failure or possible transfer to tertiary center for ongoing care if initial management is unsuccessful
[2016-09-12] MEDS ORDERED: Norepinephrine 4 MG in D5% in Water 250 ML IVC SCH (16:00)
--- NOTE | 2016-09-12 16:40 | Internal Med Progress Note ---
Date of Encounter: 09/12/16 Time of Encounter: 13:55 - Assessment and plan (1) Shock Current Visit: Yes Status: Acute Assessment and plan: hypotension with increased lactate in setting of severe systolic dysfunction. might benefit from pressors. case was discussed with both cardiology and ICU team. patient will be transferred to the icu for further management. patient with poor prognosis due to poor lvf and esrd. code status is dnr dni arrest. (2) LV (left ventricular) mural thrombus Current Visit: Yes Status: Acute Assessment and plan: echo noted, possible LV thrombus in setting of severe systolic dysfunction. Due to possible HIT, on argatroban, whcih has been stopped according to protocol due to elevated coags, hematology was consulted and will follow recommendations. no more procedures planned for now, had lhc and permacath placement. will benefit from chcf AC. (3) Systolic heart failure Current Visit: Yes Status: Acute Assessment and plan: no history of heart disease, cardiomyopathy with severe systolic dysfunction and an EF of 10-15 % in the setting of esrd, blood pressure in the lower side, no cosmo inh at this point, LCH done, no inerventions on cardiology stand point, continue heart failure management and AC. Consider ICD as outpatient, in the mean time will start process for life vest. tele monitoring. Qualifiers: Heart failure chronicity: unspecified heart failure chronicity Qualified Code(s): I50.20 - Unspecified systolic (congestive) heart failure (4) End stage renal disease Current Visit: Yes Status: Acute Assessment and plan: continue with hd as per nephro, permanent catheter placed. next hd tomorrow. (5) Fluid overload Current Visit: Yes Status: Acute Qualifiers: Hypervolemia type: other Qualified Code(s): E87.79 - Other fluid overload (6) Metabolic acidosis Current Visit: Yes Status: Chronic (7) COPD (chronic obstructive pulmonary disease) Current Visit: Yes Status: Chronic Assessment and plan: evaluated by pulmonology, underlying copd with mucus plugs and atelectasis in patient with low platelet count and on rgatroban drip. continue with broad spectrum antibiotics and systemic steoirds. Qualifiers: COPD type: chronic bronchitis Chronic bronchitis type: simple Qualified Code(s): J41.0 - Simple chronic bronchitis (8) HTN (hypertension) Current Visit: Yes Status: Chronic Qualifiers: Hypertension type: essential hypertension Qualified Code(s): I10 - Essential (primary) hypertension (9) Anemia Current Visit: No Status: Acute Qualifiers: Anemia type: unspecified type Qualified Code(s): D64.9 - Anemia, unspecified (10) Thrombocytopenia Current Visit: Yes Status: Acute Assessment and plan: timing not consistent with HIT, however due to significant drop was started on argatroban drip. follow hem on input. stop h1 chasidy. hiv testing requested, however patient refused. - Subjective Interval history: shortness o breath and tachypneic, however he states feeels better, his at bedside. no fever. productive cugh. hypotensive. - Constitutional Vitals: Temp Pulse Resp BP Pulse Ox 97.5 F L 102 24 80/56 94 09/12/16 15:52 09/12/16 15:58 09/12/16 15:58 09/12/16 15:58 09/12/16 15:58 General appearance: Present: cooperative, disheveled, A&O X 3, no acute distress Exam: pale - Head Head exam: Present: atraumatic, normocephalic - Eye Eye exam: Present: PERRL, conjuntiva pink, sclera anicteric Pupils: Present: PERRL - Neck Neck exam general surgery: Present: supple, trachea midline. Absent: lymphadenopathy - Respiratory Respiratory exam: Present: rhonchi. Absent: accessory muscle use, rales, wheezes - Cardiovascular Cardiovascular exam: Present: RRR, +S1, +S2. Absent: diastolic murmur, gallop, rubs, systolic murmur - GI/Abdominal GI/Abdominal exam: Present: normal bowel sounds, soft, no peritoneal signs. Absent: distended, tenderness - Extremities Exam Extremities exam: Present: warm, radial pulses palpable and symetrical. Absent : calf tenderness, cyanotic, pedal edema - Neurological Exam Neurological exam: Present: CN II-XII intact, oriented X3, no focal deficits. Absent: pronater drift, facial droop, speech deficit - Skin Skin exam: Present: dry, intact Internal Medicine: Result - Labs CBC & Chem 7: 09/12/16 04:41 09/12/16 04:41 Labs: Short CBC 09/12/16 Range/Units 04:41 WBC 6.1 (4.3-11.1) K/mcL Hgb 10.1 L (12.9-16.9) g/dL Hct 29.9 L (37.5-50.1) % Plt Count 48 L (140-400) K/mcL Neutrophils # 4.5 (1.6-8.9) K/mcL BMP 09/12/16 04:41 Sodium 134 L Potassium 4.4 Chloride 92 L Carbon Dioxide 22 BUN 38 H D Creatinine 4.78 H Glucose 71 Calcium 8.0 L Liver Function 09/12/16 Range/Units 04:41 Total Bilirubin 2.4 H (0.2-1.2) mg/dL Direct Bilirubin 1.6 H (0.0-0.5) mg/dL AST 55 H (5-34) Units/L ALT 50 (0-55) Units/L Alkaline Phosphatase 125 (38-126) Units/L Albumin 2.5 L (3.5-5.0) g/dL - ABG Interpretation ABG results: PT/INR, D-dimer PT 46.6 Seconds (9.4-12.1) H* 09/12/16 06:57 Consult Discharge Plan - Plan Referrals: Anders James DO [Resident] - 09/25/16 4:00 pm Anatoly Dooley MD [Partnered Physician] - 10/10/16 10:10 am
[2016-09-12] MEDS ORDERED: Metoprolol XL (24 HR) Succ 25 MG TAB.ER.24H PO SCH (16:44)
[2016-09-12] MEDS ORDERED: Vancomycin 500 MG in D5% in Water (Mini-Bag+) 100 ML IVPB ONE (19:10)
[2016-09-12] MEDS: *HR* Digoxin 0.5 MG/2 ML AMPUL IVP SCH (20:43)
[2016-09-12 22:04] LABS: INR 3.4; Prothrombin Time 38.6 Seconds (9.4-12.1)
[2016-09-12 22:07] LABS: Activated Partial Thrombo Time 92.8 Seconds (26.0-36.0)
[2016-09-12 23:10] LABS: ABG Base Excess -9.8 mEq/L (-2.0 to 3.0); ABG HCO3 14.1 mEQ/L (21-27); ABG Oxygen Saturation 99 % (95-98); ABG PCO2 25 mmHg (35-45); ABG PH 7.36 pH Units (7.32-7.45); ABG PO2 126 mmHg (85-104); ABG TCO2 14.9 mEq/L (20-26)
[2016-09-12 23:11] LABS: Blood Gas FiO2 44 %
[2016-09-13 00:26] LABS: INR 3.7; Prothrombin Time 41.4 Seconds (9.4-12.1)
[2016-09-13 00:29] LABS: Activated Partial Thrombo Time 93.4 Seconds (26.0-36.0)
[2016-09-13] MEDS: *HR* Heparin 5,000 UNIT/ML VIAL ONE ×2 (01:14→01:15)
[2016-09-13 01:18] LABS: Nucleated Red Blood Cells 0.2 /100 WBC (0)
[2016-09-13 01:20] LABS: Hematocrit 32.8 % (37.5-50.1); Hemoglobin 10.2 g/dL (12.9-16.9); Immature Platelets 17.8 % (1.1-6.1); Mean Corpuscular HGB Conc 31.1 g/dL (31.6-35.5); Mean Corpuscular Hemoglobin 30.4 pg (28.0-33.3); Mean Corpuscular Volume 97.9 fL (83.0-100.0); Red Blood Count 3.35 M/mcL (4.19-5.50); Red Cell Distribution Width 26.4 % (11.5-14.5)
[2016-09-13 01:26] LABS: Platelet Count 57 K/mcL (140-400)
[2016-09-13 01:31] LABS: Calcium 8.1 mg/dL (8.6-10.8); Potassium 5.1 mEq/L (3.5-4.5)
[2016-09-13] MEDS ORDERED: *HR* Dextrose 50 % in Water (Syg) 50 ML SYRINGE ONE (01:51)
[2016-09-13 01:53] LABS: Mixed Venous Blood O2 Hgb 87.9 % (60-80); Mixed Venous Blood pCO2 32 mmHg (44-46); Mixed Venous Blood pH 7.24 (7.34-7.36); Mixed Venous Blood pO2 61 mmHg (35-45)
[2016-09-13] MEDS: *HR* Dextrose 50 % in Water (Syg) 50 ML SYRINGE IVP ONE ×2 (01:53→04:17)
[2016-09-13 02:00] LABS: Anisocytosis 3+ (Not Present); Eosinophils # 0.2 K/mcL (0.0-0.6); Hypochromasia Present (Not Present); Lymphocytes # 1.2 K/mcL (0.6-4.6); Monocytes # 0.4 K/mcL (0.0-1.3); Neutrophils # 8.4 K/mcL (1.6-8.9); Platelet Estimate Decreased (Normal)
[2016-09-13 02:01] LABS: Polychromasia 1+ (Not Present)
--- NOTE | 2016-09-13 03:34 | Procedure Note ---
Date of procedure: 09/13/16 Pre-op diagnosis: Hypotension/Severe heart failure Post-op diagnosis: same Procedure: Written consent was obtained from the patient. The right femoral vein was surveyed using ultrasound and deemed to be a suitable target. The right groin was cleaned and draped in usual sterile fashion. Under ultrasound guidance the introducer needle was advanced into the right femoral vein. Dark red blood was returned. The guidewire was then advanced through the syringe and needle without resistance, and the syringe and needle removed. Using ultrasound the guidewire was visualized within the femoral vein. A tessie in the skin was made using a scalpel, and the dilator was passed over the guidewire in the skin and soft tissues were dilated. The dilator was then removed and a 20 cm triple lumen catheter was advanced over the guidewire and into the femoral vein. The guidewire was then removed intact. All 3 ports were tested and shown to draw blood and flushed easily. The catheter was then sutured in place. Biopatch and sterile dressing were applied. The patient tolerated the procedure well, there were no immediate complications. The attending physician, Dr. Israel, was present for and supervised the entire procedure. Anesthesia: local (1% lidocaine, 5 mL) Surgeon: Nik Gaytan Estimated blood loss (cc): 10 Pathology: none sent Condition: critical Disposition: ICU
[2016-09-13 03:39] LABS: INR 3.9; Ionized Calcium 0.88 mmol/L (1.15-1.35)
[2016-09-13 03:47] LABS: Albumin 2.7 g/dL (3.5-5.0); Albumin/Globulin Ratio 0.8 (1.1-2.2); Bilirubin,Direct 2.1 mg/dL (0.0-0.5); Bilirubin,Indirect 0.5 mg/dL (0.0-1.2); Bilirubin,Total 2.6 mg/dL (0.2-1.2); Globulin 3.6 g/dL (2.4-3.5); Magnesium 2.2 mg/dL (1.6-2.6); Phosphorous 7.4 mg/dL (2.3-4.7); Potassium 5.2 mEq/L (3.5-4.5); Prothrombin Time 43.6 Seconds (9.4-12.1); Total Protein 6.3 g/dL (6.0-8.3)
--- NOTE | 2016-09-13 03:49 | Event Note ---
Date of Encounter: 09/13/16 Time of Encounter: 03:37 I assumed care from the day team with the patient in critical condition in the ICU. Right around 7 PM dopamine at 5 mcg/kg was initiated through peripheral IV. Patient's blood pressure responded well to this. Despite the improved blood pressure laboratory evaluation including trend of lactic acid revealed a worsening lactic acidosis with the lactic acid being 8.3 at 1451 and increasing to 13.9 at midnight. The patient was examined and was awake and alert although he did seem to be slightly more confused than when I initially saw him at 1900 but he was able to conversation and answer questions somewhat appropriately. His abdominal exam revealed a nontender, nondistended abdomen with no rigidity, guarding, or rebound tenderness. Given the patient's worsening lactic acid I was concerned for hypoperfusion, likely related to severe cardiomyopathy, despite an adequate blood pressure measurement on noninvasive blood pressure monitoring. Intra-abdominal processes were also a concern therefore a CT abdomen/pelvis with IV contrast was obtained which showed significant stenoses in the renal and common iliac arteries but no evidence of bowel ischemia or infarct or other explanation for the patient's elevated lactic acid. Therefore the most likely cause of the patient's hypoperfusion appears to be his extremely low ejection fraction. I discussed the case with the on-call propulsion motor and generator repairer who recommended transitioning from dopamine to dobutamine with overlap of the 2 agents for a period of time. A right femoral vein CVC was placed, please see procedure note for details. Patient was then placed on dobutamine. The patient's and son as well as to family friends were at the bedside and I spoke to them for approximately 15 minutes explaining the patient's condition and answering any questions. The patient's family had the opportunity to ask any and all questions and these questions were answered to the best of my ability. The patient remains in critical condition in the intensive care unit. Repeat laboratory evaluation is pending. This case was discussed with the crew team member managing the ICU via phone.
[2016-09-13 03:53] LABS: Hematocrit 33.6 % (37.5-50.1); Hemoglobin 10.2 g/dL (12.9-16.9); Mean Corpuscular HGB Conc 30.4 g/dL (31.6-35.5); Red Cell Distribution Width 26.5 % (11.5-14.5)
[2016-09-13 03:54] LABS: Immature Platelets 18.4 % (1.1-6.1); Mean Corpuscular Hemoglobin 30.5 pg (28.0-33.3); Mean Corpuscular Volume 100.6 fL (83.0-100.0); Nucleated Red Blood Cells 0.3 /100 WBC (0); Red Blood Count 3.34 M/mcL (4.19-5.50)
[2016-09-13 03:57] LABS: Vancomycin,Trough 20.7 mcg/mL (10-20)
[2016-09-13 04:01] LABS: Platelet Count 60 K/mcL (140-400)
[2016-09-13 04:06] LABS: VBG HCO3 12.5 mEq/L (21-27)
[2016-09-13 04:07] LABS: VBG PH 7.15 pH Units (7.32-7.42)
[2016-09-13 04:38] LABS: Anisocytosis 3+ (Not Present); Burr Cells 1+ (Not Present); Hypochromasia Present (Not Present); Lymphocytes # 1.3 K/mcL (0.6-4.6); Monocytes # 1.1 K/mcL (0.0-1.3); Neutrophils # 8.4 K/mcL (1.6-8.9); Platelet Estimate Decreased (Normal)
[2016-09-13] MEDS ORDERED: 0.9 % Sodium Chloride 2,000 ML ONE (05:10)
[2016-09-13] MEDS: Ipratropium/Albuterol Neb 3 ML IH SCH ×4 (05:16→21:45)
[2016-09-13] MEDS: Piperacillin/Tazobactam 3.375 GM in D5% in Water (Mini-Bag+) 100 ML IVPB SCH (05:19)
[2016-09-13] MEDS: Levothyroxine 25 MCG TABLET PO SCH (05:19)
[2016-09-13] MEDS: PrismaSATE BGK 4/2.5 5,000 ML CRRT SCH ×6 (05:40→15:42)
[2016-09-13] MEDS: 0.9 % Sodium Chloride 1,000 ML PRIME SCH (05:40)
[2016-09-13] MEDS ORDERED: Norepinephrine 4 MG in D5% in Water 250 ML IVC SCH (05:45)
--- NOTE | 2016-09-13 06:56 | Pulmonology Progress Note ---
<Michael Cuevas W - Last Filed: 09/13/16 11:20> Date of Encounter: 09/13/16 Assessment and Plan (1) Pneumonia Current Visit: Yes Status: Acute Qualifiers: Pneumonia type: due to unspecified organism Laterality: unspecified laterality Lung location: unspecified part of lung Qualified Code(s): J18.9 - Pneumonia, unspecified organism (2) COPD (chronic obstructive pulmonary disease) Current Visit: Yes Status: Chronic Qualifiers: COPD type: chronic bronchitis Chronic bronchitis type: simple Qualified Code(s): J41.0 - Simple chronic bronchitis (3) Systolic heart failure Current Visit: Yes Status: Acute Qualifiers: Heart failure chronicity: unspecified heart failure chronicity Qualified Code(s): I50.20 - Unspecified systolic (congestive) heart failure (4) ESRD on dialysis Current Visit: Yes Status: Acute (5) Acute and chronic respiratory failure with hypoxia Current Visit: Yes Status: Acute (6) Mediastinal adenopathy Current Visit: Yes Status: Acute Objective PUL Vital signs: Last Vital Signs Temp 97.5 F L 09/13/16 08:00 Pulse 107 09/13/16 08:00 Resp 20 09/13/16 08:00 BP 89/64 09/13/16 08:00 Pulse Ox 97 09/13/16 08:00 Results - Laboratory Findings CBC and BMP: 09/13/16 03:20 09/13/16 03:20 ABG ABG pH 7.36 pH Units (7.32-7.45) 09/12/16 23:00 ABG pCO2 25 mmHg (35-45) L 09/12/16 23:00 ABG pO2 126 mmHg (85-104) H 09/12/16 23:00 ABG O2 Saturation 99 % (95-98) H 09/12/16 23:00 PT/INR, D-dimer PT 43.6 Seconds (9.4-12.1) H* 09/13/16 03:20 Abnormal lab findings: Abnormal lab results RBC 3.34 M/mcL (4.19-5.50) L 09/13/16 03:20 Hgb 10.2 g/dL (12.9-16.9) L 09/13/16 03:20 Hct 33.6 % (37.5-50.1) L 09/13/16 03:20 MCV 100.6 fL (83.0-100.0) H 09/13/16 03:20 MCHC 30.4 g/dL (31.6-35.5) L 09/13/16 03:20 RDW 26.5 % (11.5-14.5) H 09/13/16 03:20 Plt Count 60 K/mcL (140-400) L 09/13/16 03:20 Band Neutrophils % 20.0 % (0-4) H 09/12/16 04:41 Nucleated RBCs/100 WBC 0.3 /100 WBC (0) H 09/13/16 03:20 Platelet Estimate Decreased (Normal) L 09/13/16 03:20 Large Platelets Present (Not Present) A 09/11/16 00:23 Immature Plt Fraction 18.4 % (1.1-6.1) H 09/13/16 03:20 Polychromasia 1+ (Not Present) A 09/13/16 01:08 Hypochromasia Present (Not Present) A 09/13/16 03:20 Poikilocytosis 1+ (Not Present) A 09/08/16 03:46 Anisocytosis 3+ (Not Present) A 09/13/16 03:20 Microcytosis Present (Not Present) A 09/11/16 00:23 Macrocytosis Present (Not Present) A 09/11/16 00:23 Ovalocytes 1+ (Not Present) A 09/10/16 18:36 [place] Cells 1+ (Not Present) A 09/13/16 03:20 Acanthocytes (Spur) 1+ (Not Present) A 09/11/16 00:23 Retic Hgb Equivalent 40.0 pg (28.61-36.33) H 09/10/16 09:23 PT 43.6 Seconds (9.4-12.1) H* 09/13/16 03:20 APTT 98.0 Seconds (26.0-36.0) H 09/13/16 03:20 Heparin Anti-Xa, Unfract 0.28 IU/mL (0.30-0.70) L 09/07/16 03:55 ABG pCO2 25 mmHg (35-45) L 09/12/16 23:00 ABG pO2 126 mmHg (85-104) H 09/12/16 23:00 ABG HCO3 14.1 mEQ/L (21-27) L 09/12/16 23:00 ABG Total CO2 14.9 mEq/L (20-26) L 09/12/16 23:00 ABG O2 Saturation 99 % (95-98) H 09/12/16 23:00 ABG Base Excess -9.8 mEq/L (-2.0 to 3.0) L 09/12/16 23:00 VBG pH 7.15 pH Units (7.32-7.42) L* 09/13/16 03:58 VBG pCO2 36 mmHg (41-51) L 09/13/16 03:58 VBG pO2 52 mmHg (25-40) H 09/13/16 03:58 VBG HCO3 12.5 mEq/L (21-27) L 09/13/16 03:58 Mixed VBG pH 7.24 (7.34-7.36) L 09/13/16 01:08 Mixed VBG pCO2 32 mmHg (44-46) L 09/13/16 01:08 Mixed VBG pO2 61 mmHg (35-45) H 09/13/16 01:08 Mixed VBG Oxyhemoglobin 87.9 % (60-80) H 09/13/16 01:08 Sodium 132 mEq/L (136-145) L 09/13/16 03:20 Potassium 5.2 mEq/L (3.5-4.5) H 09/13/16 03:20 Chloride 90 mEq/L (98-109) L 09/13/16 03:20 Carbon Dioxide 10 mEq/L (19-29) L* 09/13/16 03:20 BUN 51 mg/dL (8-26) H 09/13/16 03:20 Creatinine 5.85 mg/dL (0.72-1.25) H 09/13/16 03:20 Est GFR ( Amer) 12 (> 60) L 09/13/16 03:20 Est GFR (Non-Af Amer) 10 (> 60) L 09/13/16 03:20 POC Glucose 125 (58-89) H 09/12/16 18:05 Lactic Acid 13.1 mmol/L (0.5-2.2) H* 09/13/16 07:35 Calcium 8.0 mg/dL (8.6-10.8) L 09/13/16 03:20 Ionized Calcium 0.88 mmol/L (1.15-1.35) L 09/13/16 03:20 Phosphorus 7.4 mg/dL (2.3-4.7) H 09/13/16 03:20 Iron 23 mcg/dL (65-175) L 09/10/16 09:23 % Saturation 6 % (20-55) L 09/10/16 09:23 Total Bilirubin 2.6 mg/dL (0.2-1.2) H 09/13/16 03:20 Direct Bilirubin 2.1 mg/dL (0.0-0.5) H 09/13/16 03:20 AST 71 Units/L (5-34) H 09/13/16 03:20 Lactate Dehydrogenase 403 Units/L (159-327) H 09/10/16 09:23 Troponin I 0.12 ng/mL (0-0.03) H* 09/11/16 00:23 B-Natriuretic Peptide > 5000 pg/mL (0-100) H 09/11/16 00:23 Albumin 2.7 g/dL (3.5-5.0) L 09/13/16 03:20 Globulin 3.6 g/dL (2.4-3.5) H 09/13/16 03:20 Albumin/Globulin Ratio 0.8 (1.1-2.2) L 09/13/16 03:20 Vitamin B12 > 2000 pg/mL (213-816) H 09/10/16 10:45 Methylmalonic Acid 0.56 umol/L (0.00-0.40) H 09/10/16 09:23 Folate 34.0 ng/mL (7.0-31.4) H 09/10/16 10:45 TSH 5.631 mcIU/mL (0.350-4.840) H 09/10/16 09:23 Thyroxine (T4) 3.54 mcg/dL (4.87-11.72) L 09/10/16 09:23 Urine Protein 100 mg/dL (Neg-Trace) H 09/06/16 02:35 Urine Blood Moderate (Negative) H 09/06/16 02:35 Urine Microscopic RBC 3-5 per hpf (0-3) H 09/06/16 02:35 Ur Squamous Epith Cells Moderate per lpf (None-Few) H 09/06/16 02:35 Vancomycin Trough 20.7 mcg/mL (10-20) H* 09/13/16 03:20 - Clinical Findings Intake & Output: Intake & Output 09/12/16 09/13/16 09/13/16 23:59 07:59 15:59 Intake Total 600 / 600 600 / 600 Output Total 50 / 50 123 / 123 158 / 158 Balance 550 / 550 477 / 477 -158 / -158 Weight 86 kg 86 kg Consult Discharge Plan - Plan Referrals: Anders James DO [Resident] - 09/25/16 4:00 pm Anatoly Dooley MD [Partnered Physician] - 10/10/16 10:10 am - Attending Attestation I examined this patient and my medical decision-making was reviewed with the [employer] OPERATOR/PA/Advanced Practice Nurse/Resident Physician. I agree with the documented findings, disposition and treatment plan as described except to the extent set forth below. I spent 35min of Critical Care time with this patient. It involved decision making of high complexity to assess, manipulate, and support vital organ system failure and/or to prevent further life threatening deterioration of the patient' s condition. The time involved in the performance of separately reportable procedures was not counted toward critical care time. Patient seen and examined at bedside Labs, radiology, chart personally reviewed. All lines examined without evidence of infection. Neuropsych: Much more lethargic today he has fluctuating mental status or his able to answer all questions appropriately intermixed with significant lethargy/ somnolence. Based upon my exam today I do not feel that he is medically competent to make decisions because of encephalopathy/delirium Pulm: Acute on chronic hypoxic respiratory failure - good oxygenation on 2LNC o2. History of COPD on schedules BDs Cards: Decompnesated systolic CHF. ON Vasopressor/inotropic support (dopa/ dobutamine). worsening lactic acidosis.and evidence of MOSF. Cardiology following. I spoke directly to cardiac attending today and team spoke to promotions firm accounts manager attending about possible transfer to tertiary center for possible left ventriclar support device. Cardiology final recs pending. Critically Ill but felt that severity of failure requires transfer or transition to comfort measures. . FEN-GI:NPO for now. PPi given. Renal: ESRD on CVVH for acidosis. appreciate renal recs. BID renal function panel replace lytes per protocol ID: Concern for sepsis ?PNA vs Intraabdominal source on Vanc/Zosyn cultures pending. Heme/Onc: Pancytopenia with including thromobyctopenia with need for anticoagulation because of mural thrombus. At this point no clear evidence that this patient is actively bleeding and so would not proceed with reversal of coagulopathy however given degree of coagulopathy would not restart IV anticoagulation medication at this time either because of risk of hemorrhage. There was concern for heparin-induced thrombocytopenia however PF4 assay (-) and with low pre test probability this essentially excludes his diagnosis. I am also concerned that with degree of lactic acidosis the patient may be developing disseminated intravascular coagulopathy I will check baseline fibrinogen level. Endo: Glucose monitred Integ/MSK: skin care CODE: DNAR family including (VICTORINO) updated at bedside I explained in detail that 's clinical course at this time is critical and that he may need transfer to an outside facility for ongoing care if he is to survive this. At this juncture she is unclear if he would want transfer to outside facility and with patient's fluctuating mental status we would be reliant upon her judgment to reflect his own. She is to seek baby counselor with additional family members as a wait for final cardiology evaluation and if he would be a suitable candidate for transfer. <Isreal Comer - Last Filed: 09/13/16 11:58> Date of Encounter: 09/13/16 Time of Encounter: 06:56 Assessment and Plan (1) Shock Current Visit: Yes Status: Acute patient transferred to ICU yesterday for shock in setting of increased lactic acid, concern for hypoperfusion (see critical care note) Patient had lactic acid trending up overnight, currently decreaed to 13.1 from 19.2 patient has pancytopenia, no evidence of active bleeding, will not reverse coagulopathy at this time. Concern for DIC Plan: continue dopamine and dobutamine, wean off as tolerated. no anticoagulation at this time. Appreciate cardiology recommendations. patient may need transfer to higher care center for shock in setting of compromised EF. check fibrinogen levels-concern for DIC. (2) LV (left ventricular) mural thrombus Current Visit: Yes Status: Acute Hold anticoagulation for now, as patient is at high risk of bleeding. (3) Systolic heart failure Current Visit: Yes Status: Acute Echo from 09/06/16 showed LVEF 10-15%, mildly dilated LV, severe global LV systolic dysfunction, indeterminate diastolic function, LV apex suspicious for thrombus, severely dialted left and right atrium, mild aortic regurg, no evidence of pulmonary HTN. cardiac catheterization from 09/11/16 showed nonischemic cardiomyopathy with EF 10-15% by echo. Hx of CAD: stenosis of proximal and mid LAD, mid circumflex and marginal, right coronary. Qualifiers: Heart failure chronicity: unspecified heart failure chronicity Qualified Code(s): I50.20 - Unspecified systolic (congestive) heart failure (4) End stage renal disease Current Visit: Yes Status: Acute patient previously CKD stave IV/V, now progressed to ESRD patient currently requiring dialysis Appreciate nephrology recommendations. (5) COPD (chronic obstructive pulmonary disease) Current Visit: Yes Status: Chronic currently requiring 2L nasal canula. will continue bronchodilators. Qualifiers: COPD type: chronic bronchitis Chronic bronchitis type: simple Qualified Code(s): J41.0 - Simple chronic bronchitis (6) Anemia Current Visit: No Status: Acute llikely secondary to CKD/ESRD. H/H currently stable. will continue to monitor. Qualifiers: Anemia type: unspecified type Qualified Code(s): D64.9 - Anemia, unspecified (7) Thrombocytopenia Current Visit: Yes Status: Acute Appreciate oncology recommendations. Etiology unclear at this time, likely multifactorial in setting of ESRD and liver dysfunciton. PF4 negative. Appreciate oncology recommendations. (8) DVT prophylaxis Current Visit: Yes Status: Acute Patient was on argatraban, currently discontinued. Patient is at high risk for bleeding, will hold anticoagulation for now. Neuro/Sedation: alert and orientated x3, appears lethargic. CT head on 09/10/16 showed atrophy and mild small vessel ischemic disease. Pulmonology: Hx of COPD. CT chest from 09/05/16 showed small bilateral pleural effusions and bilateral lower lobe atalectasis or pneumonitis with bibasilar mucous plugging, mediastinal adenopathy. Acute hypoxic respiratory failure- continue broad spectrum antibiotics, bronchodilators, symbicort Cardiac: Echo from 09/06/16 showed LVEF 10-15%, mildly dilated LV, severe global LV systolic dysfunction, indeterminate diastolic function, LV apex suspicious for thrombus, severely dialted left and right atrium, mild aortic regurg, no evidence of pulmonary HTN. Hx of CHF: cardiac catheterization from 09/11/16 showed nonischemic cardiomyopathy with EF 10-15% by echo. Hx of CAD: stenosis of proximal and mid LAD, mid circumflex and marginal, right coronary. concern for low perfusion in setting of high lactic acid. Currently on both dopamine and dobutamine, with eventual plan to switch to dobutamine. Gi/Fluids/Electrolytes/hydration: ultrasound abdomen showed increased echogenicity in liver and coarsened echo texture, as seen with fatty infiltration. no focal lesions, gallstones, sludge and nonspecific gallbladder wall thickening up to 5mm, no additional sonographic signs of cholecystitis. Patient received 25g 5% albumin yesterday. Getting flash now. Repeat vbg q6h, protonix for GI prophylaxis. NPO Renal: formerly CKD IV/V now progressed to ESRD on dialysis. nephrology on board. Started on flash overnight. Cr today 5.52. trend VBG q6H ID: being treated with vancomycin and zosyn for sepsis, likely secondary to aspiration pneumonia. Lactic acid trending up, concern for hypoperfusion, will trend Q6H. Heme/Onc: Patient initially received heparin gtt for LV apex thrombus, then switched to Argatraban, currently on Hold Argatraban so PTT can be low enough to put in central line, then will re start. Hx of folate deficiency, on supplement. chronic anemia, likely secondary to CKD. Oncology on board for thrombocytopenia and possible HIT. HIT panel, haptoglobin, MMA, blood smear path pending. concern for DIC- check fibrinogen levels. Endocrine: NPO, hold levothyroxine. Sugars low today, hypoglycemia protocol in place with Q6h accuchekcs. Integ: usual skincare as per ICU protocol. Subjective Principal diagnosis: severe non ischemic cardiomyopathy, sepsis Interval history: 65 year old male evaluated at bedside. Patient did not do well overnight and was clinically deteriorating. Patient had right femoral line placed overnight, is now on both dopamine and dobutamine. His lactic acid continued to increase, and he was started on Flash overnight. Patient is DNRCCA/DNI, and family was made aware of his deterioration. Option of transfer to a higher care center was discussed with family, but this is currently not possible due to his instability. There was concern for hypoperfusion given his worsening lactic acidosis, likely related to severe cardiomyopathy. CT A/P with IV contrast was done overnight, which showed significant stenoses in the renal and common iliac arteries, but no evidence of bowel ischemia or infarct to explain the patient's elevated lactic acidosis. promotions firm accounts manager computer art instructor recommended overlap of dopamine with dobutamine, and then eventually transition to dobutamine only. right femoral CVC was placed overnight, which now has bleeding at the site. he remains in critical condition Objective PUL Vital signs: Last Vital Signs Temp 97.3 F L 09/13/16 04:27 Pulse 113 09/13/16 06:00 Resp 13 09/13/16 06:00 BP 87/55 09/13/16 06:00 Pulse Ox 97 09/13/16 06:00 General appearance: no acute distress, alert, lethargic Eyes: icteric ENT: oropharynx moist Neck: supple, JVD (present bilaterally) Auscultation: left: wheezes Cardiovascular: other (tachycardic) Gastrointestinal: hypoactive bowel sounds, soft, non-tender Extremities: no cyanosis, no edema, no clubbing Musculoskeletal: no deformities non-focal exam anxious Results - Laboratory Findings CBC and BMP: 09/13/16 03:20 09/13/16 03:20 ABG ABG pH 7.36 pH Units (7.32-7.45) 09/12/16 23:00 ABG pCO2 25 mmHg (35-45) L 09/12/16 23:00 ABG pO2 126 mmHg (85-104) H 09/12/16 23:00 ABG O2 Saturation 99 % (95-98) H 09/12/16 23:00 PT/INR, D-dimer PT 43.6 Seconds (9.4-12.1) H* 09/13/16 03:20 Abnormal lab findings: Abnormal lab results RBC 3.34 M/mcL (4.19-5.50) L 09/13/16 03:20 Hgb 10.2 g/dL (12.9-16.9) L 09/13/16 03:20 Hct 33.6 % (37.5-50.1) L 09/13/16 03:20 MCV 100.6 fL (83.0-100.0) H 09/13/16 03:20 MCHC 30.4 g/dL (31.6-35.5) L 09/13/16 03:20 RDW 26.5 % (11.5-14.5) H 09/13/16 03:20 Plt Count 60 K/mcL (140-400) L 09/13/16 03:20 Band Neutrophils % 20.0 % (0-4) H 09/12/16 04:41 Nucleated RBCs/100 WBC 0.3 /100 WBC (0) H 09/13/16 03:20 Platelet Estimate Decreased (Normal) L 09/13/16 03:20 Large Platelets Present (Not Present) A 09/11/16 00:23 Immature Plt Fraction 18.4 % (1.1-6.1) H 09/13/16 03:20 Polychromasia 1+ (Not Present) A 09/13/16 01:08 Hypochromasia Present (Not Present) A 09/13/16 03:20 Poikilocytosis 1+ (Not Present) A 09/08/16 03:46 Anisocytosis 3+ (Not Present) A 09/13/16 03:20 Microcytosis Present (Not Present) A 09/11/16 00:23 Macrocytosis Present (Not Present) A 09/11/16 00:23 Ovalocytes 1+ (Not Present) A 09/10/16 18:36 [place] Cells 1+ (Not Present) A 09/13/16 03:20 Acanthocytes (Spur) 1+ (Not Present) A 09/11/16 00:23 Retic Hgb Equivalent 40.0 pg (28.61-36.33) H 09/10/16 09:23 PT 43.6 Seconds (9.4-12.1) H* 09/13/16 03:20 APTT 98.0 Seconds (26.0-36.0) H 09/13/16 03:20 Heparin Anti-Xa, Unfract 0.28 IU/mL (0.30-0.70) L 09/07/16 03:55 ABG pCO2 25 mmHg (35-45) L 09/12/16 23:00 ABG pO2 126 mmHg (85-104) H 09/12/16 23:00 ABG HCO3 14.1 mEQ/L (21-27) L 09/12/16 23:00 ABG Total CO2 14.9 mEq/L (20-26) L 09/12/16 23:00 ABG O2 Saturation 99 % (95-98) H 09/12/16 23:00 ABG Base Excess -9.8 mEq/L (-2.0 to 3.0) L 09/12/16 23:00 VBG pH 7.15 pH Units (7.32-7.42) L* 09/13/16 03:58 VBG pCO2 36 mmHg (41-51) L 09/13/16 03:58 VBG pO2 52 mmHg (25-40) H 09/13/16 03:58 VBG HCO3 12.5 mEq/L (21-27) L 09/13/16 03:58 Mixed VBG pH 7.24 (7.34-7.36) L 09/13/16 01:08 Mixed VBG pCO2 32 mmHg (44-46) L 09/13/16 01:08 Mixed VBG pO2 61 mmHg (35-45) H 09/13/16 01:08 Mixed VBG Oxyhemoglobin 87.9 % (60-80) H 09/13/16 01:08 Sodium 132 mEq/L (136-145) L 09/13/16 03:20 Potassium 5.2 mEq/L (3.5-4.5) H 09/13/16 03:20 Chloride 90 mEq/L (98-109) L 09/13/16 03:20 Carbon Dioxide 10 mEq/L (19-29) L* 09/13/16 03:20 BUN 51 mg/dL (8-26) H 09/13/16 03:20 Creatinine 5.85 mg/dL (0.72-1.25) H 09/13/16 03:20 Est GFR ( Amer) 12 (> 60) L 09/13/16 03:20 Est GFR (Non-Af Amer) 10 (> 60) L 09/13/16 03:20 POC Glucose 125 (58-89) H 09/12/16 18:05 Lactic Acid 19.2 mmol/L (0.5-2.2) H* 09/13/16 03:20 Calcium 8.0 mg/dL (8.6-10.8) L 09/13/16 03:20 Ionized Calcium 0.88 mmol/L (1.15-1.35) L 09/13/16 03:20 Phosphorus 7.4 mg/dL (2.3-4.7) H 09/13/16 03:20 Iron 23 mcg/dL (65-175) L 09/10/16 09:23 % Saturation 6 % (20-55) L 09/10/16 09:23 Total Bilirubin 2.6 mg/dL (0.2-1.2) H 09/13/16 03:20 Direct Bilirubin 2.1 mg/dL (0.0-0.5) H 09/13/16 03:20 AST 71 Units/L (5-34) H 09/13/16 03:20 Lactate Dehydrogenase 403 Units/L (159-327) H 09/10/16 09:23 Troponin I 0.12 ng/mL (0-0.03) H* 09/11/16 00:23 B-Natriuretic Peptide > 5000 pg/mL (0-100) H 09/11/16 00:23 Albumin 2.7 g/dL (3.5-5.0) L 09/13/16 03:20 Globulin 3.6 g/dL (2.4-3.5) H 09/13/16 03:20 Albumin/Globulin Ratio 0.8 (1.1-2.2) L 09/13/16 03:20 Vitamin B12 > 2000 pg/mL (213-816) H 09/10/16 10:45 Folate 34.0 ng/mL (7.0-31.4) H 09/10/16 10:45 TSH 5.631 mcIU/mL (0.350-4.840) H 09/10/16 09:23 Thyroxine (T4) 3.54 mcg/dL (4.87-11.72) L 09/10/16 09:23 Urine Protein 100 mg/dL (Neg-Trace) H 09/06/16 02:35 Urine Blood Moderate (Negative) H 09/06/16 02:35 Urine Microscopic RBC 3-5 per hpf (0-3) H 09/06/16 02:35 Ur Squamous Epith Cells Moderate per lpf (None-Few) H 09/06/16 02:35 Vancomycin Trough 20.7 mcg/mL (10-20) H* 09/13/16 03:20 - Clinical Findings Intake & Output: Intake & Output 09/12/16 09/12/16 09/13/16 15:59 23:59 07:59 Intake Total 120 / 120 600 / 600 287 / 287 Output Total 0 / 0 50 / 50 0 / 0 Balance 120 / 120 550 / 550 287 / 287 Weight 86 kg
[2016-09-13] MEDS: Multivit/Ca/Min/Fe/FA 1 TAB TABLET PO SCH ×2 (08:23→08:49)
[2016-09-13] MEDS: *HR* Digoxin 0.5 MG/2 ML AMPUL IVP SCH (08:24)
[2016-09-13] MEDS: Nicotine 21 MG PATCH.TD24 TD SCH (08:24)
[2016-09-13] MEDS: Folic Acid 1 MG TABLET PO SCH ×2 (08:24→08:51)
[2016-09-13] MEDS: Cholecalciferol (D-3) 1,000 UNIT TABLET PO SCH ×2 (08:24→08:51)
[2016-09-13] MEDS: Calcium Acetate 667 MG CAPSULE PO SCH ×4 (08:24→14:37)
[2016-09-13] MEDS: Fluticasone Propionate Nasal 50 MCG/SPRAY BOTTLE NS SCH (08:25)
[2016-09-13 08:29] LABS: MMA (VIT B12 STATUS) 0.56 umol/L (0.00-0.40)
[2016-09-13] MEDS ORDERED: Pantoprazole 40 MG VIAL IVP SCH (09:00)
[2016-09-13 09:25] LABS: VBG HCO3 16.7 mEq/L (21-27); VBG PH 7.25 pH Units (7.32-7.42)
[2016-09-13 10:09] LABS: ABG Base Excess -8.5 mEq/L (-2.0 to 3.0); ABG HCO3 15.4 mEQ/L (21-27); ABG Oxygen Saturation 99 % (95-98); ABG PCO2 26 mmHg (35-45); ABG PH 7.38 pH Units (7.32-7.45); ABG PO2 122 mmHg (85-104); ABG TCO2 16.2 mEq/L (20-26)
[2016-09-13 10:11] LABS: Blood Gas FiO2 28 %
[2016-09-13] MEDS ORDERED: *HR* Dextrose 50 % in Water (Syg) 50 ML SYRINGE IVP PRN (10:16)
[2016-09-13] MEDS ORDERED: D5% in Water 1,000 ML IVC PRN (10:16)
[2016-09-13] MEDS ORDERED: Dextrose Gel 15 GM PO PRN ×2 (10:16)
[2016-09-13] MEDS ORDERED: Potassium Chloride 40 MEQ/200 ML BAG IVPB PRN (10:17)
[2016-09-13] MEDS ORDERED: Calcium Gluconate 1,000 MG in D5% in Water 100 ML IVPB PRN (10:17)
[2016-09-13] MEDS ORDERED: Magnesium Sulfate 2 GM in D5% in Water 100 ML IVPB PRN (10:17)
[2016-09-13] MEDS: Budesonide/Formoterol 160/4.5 MDI IH SCH ×2 (11:22→21:46)
--- NOTE | 2016-09-13 11:23 | Nephrology Progress Note ---
Date of Encounter: 09/13/16 Time of Encounter: 11:23 - Assessment and Plan (1) ESRD on dialysis Current Visit: Yes Status: Acute Patient switched to CVVHD overnight. Renal dose medications Prognosis is poor. This seems to be worsening heart failure. Subjective Principal diagnosis: severe non ischemic cardiomyopathy, sepsis Interval history: Patient seen. His does not respond to voice commands. I spoke with Dr. Langley who started CVVHD overnight. ROS unobtainable. Objective - Vital Signs Vital signs: Vital Signs Temp Pulse Resp BP Pulse Ox 09/13/16 11:00 104 22 82/59 100 09/13/16 10:00 108 20 92/62 100 09/13/16 09:00 105 20 97/69 100 09/13/16 08:00 97.5 F L 107 20 89/64 97 09/13/16 07:56 109 09/13/16 07:00 112 21 97/81 98 09/13/16 06:00 113 13 87/55 97 09/13/16 04:57 21 94/39 09/13/16 04:27 97.3 F L 09/13/16 04:00 96.1 F L 118 21 90/72 95 09/13/16 03:00 115 13 105/81 93 09/13/16 02:00 116 27 108/82 94 09/13/16 01:00 118 28 117/84 96 09/13/16 00:31 96.9 F L 09/13/16 00:00 119 09/12/16 23:00 119 15 108/77 97 09/12/16 22:00 121 14 117/87 09/12/16 21:00 124 19 106/84 84 09/12/16 20:00 99 29 74/57 85 09/12/16 19:00 99 22 98 09/12/16 18:45 99 15 80/62 95 09/12/16 18:10 97 F L 101 14 73/63 99 09/12/16 18:05 101 09/12/16 17:49 106 24 74/58 86 09/12/16 15:58 102 24 80/56 94 09/12/16 15:52 97.5 F L 101 22 74/52 100 09/12/16 15:45 101 24 78/54 90 09/12/16 15:09 102 24 82/56 88 09/12/16 14:52 101 24 78/48 97 09/12/16 14:40 106 22 78/46 96 09/12/16 14:20 104 22 81/58 94 09/12/16 14:02 97.6 F 103 24 78/54 97 09/12/16 14:01 93/62 Intake and Output 09/12/16 09/13/16 09/13/16 23:59 07:59 15:59 Intake Total 600 / 600 600 / 600 455 / 455 Output Total 50 / 50 123 / 123 680 / 680 Balance 550 / 550 477 / 477 -225 / -225 Intake: IV Fluids 600 / 600 600 / 600 455 / 455 ALBURX 5% 12.5 gm In 250 500 / 500 ml @ 60 mls/hr IVC . Q4H10M [facility] Rx#:[id number] DOBUTamine Premix 250 MG/ 250 / 250 250 / 250 250 ML 250 mg In 250 ml @ 2.5 MCG/KG/MIN 12.921 mls/hr IVC .[id number] [facility] Rx#:[id number] DOPamine Premix 400mg/ 250 / 250 105 / 105 250mL 400 mg In 250 ml @ 1 MCG/KG/MIN 3.285 mls/hr IVC .Q24H [facility] Rx#: [id number] Zosyn 3.375 GM In 100 / 100 100 / 100 Dextrose 5% (Minibag+) 100 ML 100 ML @ 25 mls/hr IVPB Q12HR [facility] Rx#: [id number] Vancocin 500 MG In 100 / 100 Dextrose 5% (Minibag+) 100 ML 100 ML @ 100 mls/ hr IVPB ONCE ONE Rx#: [id number] Oral 0 / 0 Output: Urine 50 / 50 0 / 0 0 / 0 Fluid Removed by 123 / 123 680 / 680 Prismaflex Other: Stool Size Smear Stool Consistency loose Stool Characteristics Normal for Patient Weight 86 kg 86 kg Patient Weight 09/13/16 23:59 Weight 86 kg - General Appearance General appearance: Present: well-developed, cachectic, chronically ill, frail EENT: Present: ATNC Respiratory: Present: course breath sounds Cardiology: Present: edema Additional Comments: tachycardia Integumentary: Present: warm and dry - Lab 09/13/16 14:26 09/13/16 14:26 Most recent lab results ABG pH 7.38 pH Units (7.32-7.45) 09/13/16 10:00 ABG pCO2 26 mmHg (35-45) L 09/13/16 10:00 ABG pO2 122 mmHg (85-104) H 09/13/16 10:00 ABG HCO3 15.4 mEQ/L (21-27) L 09/13/16 10:00 ABG O2 Saturation 99 % (95-98) H 09/13/16 10:00 Calcium 8.0 mg/dL (8.6-10.8) L 09/13/16 03:20 Phosphorus 7.4 mg/dL (2.3-4.7) H 09/13/16 03:20 Magnesium 2.2 mg/dL (1.6-2.6) 09/13/16 03:20 Consult Discharge Plan - Plan Referrals: Anders James DO [Resident] - 09/25/16 4:00 pm Anatoly Dooley MD [Partnered Physician] - 10/10/16 10:10 am
[2016-09-13] MEDS ORDERED: Vancomycin 500 MG in D5% in Water (Mini-Bag+) 100 ML IVPB ONE (12:00)
[2016-09-13] MEDS ORDERED: Perflutren Lipid Microsphere 1.3 ML in 0.9 % Sodium Chloride 8.7 ML IVP ONE (13:17)
--- NOTE | 2016-09-13 13:59 | Cardiology Progress Note ---
Date of Encounter: 09/13/16 Time of Encounter: 14:00 Assessment and Plan (1) Cardiogenic shock Current Visit: Yes Status: Acute Continue supportive care with dopamine and dobutamine. Discussed with [facility] - Dr. Gibbs - advanced heart failure specialist. He is not a candidate for mechanical support ie LVAD primarily because of his ESRD (>CKD 3) but also comorbids of thrombocytopenia and coagulopathy. Patient has a poor prognosis that was discussed with family. Consult hospice for transition to palliative care and admission to the inpatient hospice. (2) End stage renal disease Current Visit: Yes Status: Acute patient previously CKD stave IV/V, now progressed to ESRD patient currently requiring dialysis Appreciate nephrology recommendations. (3) LV (left ventricular) mural thrombus Current Visit: Yes Status: Acute Patient does have LV mural thrombus but is autoanticoagulated and thrombocytopenic. Do not recommend anticoagulation at this time. (4) Systolic heart failure Current Visit: Yes Status: Acute Echo from 09/06/16 showed LVEF 10-15%, mildly dilated LV, severe global LV systolic dysfunction, indeterminate diastolic function, LV apex suspicious for thrombus, severely dialted left and right atrium, mild aortic regurg, no evidence of pulmonary HTN. cardiac catheterization from 09/11/16 showed nonischemic cardiomyopathy with EF 10-15% by echo. Hx of CAD: stenosis of proximal and mid LAD, mid circumflex and marginal, right coronary. Qualifiers: Heart failure chronicity: unspecified heart failure chronicity Qualified Code(s): I50.20 - Unspecified systolic (congestive) heart failure (5) Thrombocytopenia Current Visit: Yes Status: Acute Appreciate oncology recommendations. Etiology unclear at this time, likely multifactorial in setting of ESRD and liver dysfunciton. PF4 negative. Appreciate oncology recommendations. Discussion w patient/family: The assessment and plan as outlined above was discussed with the patient and/or family members who expressed understanding and agreement. All questions were answered. Thank you for involving us in the care of your patient. Please call with any questions. Subjective Principal diagnosis: severe non ischemic cardiomyopathy, sepsis Interval history: Patient somnolent - denies chest/jaw/arm discomfort or overt dyspnea. He feels weak. Objective Vital Signs, Last 4 Hours Temp Pulse Resp BP Pulse Ox 09/13/16 13:00 108 22 94/65 100 09/13/16 12:00 97.5 F L 102 22 84/64 100 09/13/16 11:25 103 09/13/16 11:23 21 88/63 100 09/13/16 11:00 104 22 82/59 100 09/13/16 10:00 108 20 92/62 100 General: Other (somnolent) HEENT: Atraumatic Neck: No JVD Cardiac: Other (tachy s1 s2) Lungs: Other (diminished) Neuro: No focal deficits noted, Other (somnolent. ) Abdomen: Soft Skin: No rashes noted on visualized skin Musculoskeletal: No Chest Wall Tenderness Extremities: No Clubbing, Other Results 09/13/16 03:20 09/13/16 03:20 Lab Results 09/12/16 09/12/16 09/12/16 13:53 18:57 21:53 WBC Hgb Hct Plt Count INR 3.4 APTT 96.7 H 94.3 H 92.8 H Sodium Potassium Chloride Carbon Dioxide BUN Creatinine Glucose Calcium Magnesium Total Bilirubin AST ALT Alkaline Phosphatase 09/13/16 09/13/16 09/13/16 00:03 01:08 01:08 WBC 10.2 D Hgb 10.2 L Hct 32.8 L Plt Count 57 L INR 3.7 APTT 93.4 H Sodium 133 L Potassium 5.1 H Chloride 91 L Carbon Dioxide 12 L BUN 50 H D Creatinine 5.52 H Glucose 64 L Calcium 8.1 L Magnesium Total Bilirubin AST ALT Alkaline Phosphatase 09/13/16 09/13/16 09/13/16 03:20 03:20 03:20 WBC 10.8 Hgb 10.2 L Hct 33.6 L Plt Count 60 L INR 3.9 APTT 98.0 H Sodium 132 L Potassium 5.2 H Chloride 90 L Carbon Dioxide 10 L* BUN 51 H Creatinine 5.85 H Glucose 93 Calcium 8.0 L Magnesium 2.2 Total Bilirubin 2.6 H AST 71 H ALT 46 Alkaline Phosphatase 116 - Imaging and Cardiology Echo: image reviewed Cardiac cath: image reviewed Consult Discharge Plan - Plan Referrals: Anders James DO [Resident] - 09/25/16 4:00 pm Anatoly Dooley MD [Partnered Physician] - 10/10/16 10:10 am
[2016-09-13 14:34] LABS: Nucleated Red Blood Cells 0.2 /100 WBC (0)
[2016-09-13 14:36] LABS: Hematocrit 28.8 % (37.5-50.1); Hemoglobin 9.4 g/dL (12.9-16.9); Immature Platelets 19.4 % (1.1-6.1); Mean Corpuscular HGB Conc 32.6 g/dL (31.6-35.5); Mean Corpuscular Hemoglobin 31.2 pg (28.0-33.3); Mean Corpuscular Volume 95.7 fL (83.0-100.0); Red Blood Count 3.01 M/mcL (4.19-5.50); Red Cell Distribution Width 25.2 % (11.5-14.5); VBG HCO3 23.7 mEq/L (21-27); VBG PH 7.31 pH Units (7.32-7.42)
[2016-09-13 14:38] LABS: Platelet Count 47 K/mcL (140-400)
[2016-09-13 14:40] LABS: INR 3.6; Prothrombin Time 40.7 Seconds (9.4-12.1)
[2016-09-13 14:46] LABS: Calcium 7.5 mg/dL (8.6-10.8); Potassium 4.7 mEq/L (3.5-4.5)
[2016-09-13 15:34] LABS: Lymphocytes # 0.7 K/mcL (0.6-4.6); Monocytes # 0.2 K/mcL (0.0-1.3); Neutrophils # 7.5 K/mcL (1.6-8.9)
[2016-09-13] MEDS ORDERED: *HR* FentaNYL (PF) 100 MCG/2 ML VIAL IVP PRN (15:34)
[2016-09-13] MEDS ORDERED: *HR* LORazepam 2 MG/ML VIAL IVP PRN (15:36)
[2016-09-13 15:37] LABS: Platelet Estimate Decreased (Normal)
[2016-09-13 15:38] LABS: Anisocytosis 3+ (Not Present); Macrocytosis Present (Not Present); Poikilocytosis 1+ (Not Present); Polychromasia 1+ (Not Present)
--- NOTE | 2016-09-13 15:44 | Palliative - Consult Note ---
Date of Encounter: 09/13/16 Time of Encounter: 15:30 - Assessment and Plan (1) Generalized pain Current Visit: Yes Status: Acute Assessment and plan: Will give low dose Fentanyl for pain or dyspnea. Will avoid Morphine r/t renal function (2) Anxiety Current Visit: Yes Status: Acute Assessment and plan: Low dose Lorazepam PRN and monitor (3) Counseling regarding advanced directives and goals of care Current Visit: Yes Status: Acute (4) Counseling regarding advanced care planning and goals of care Current Visit: Yes Status: Acute Assessment and plan: Discussed with and sister at bedside. They desire transition to comfort care and do not want any resuscitative measures. Discussed that transition would be that dialysis, monitoring, and vasopressors would be discontinued. stated that he stated he is at peace and knows there is nothing else that can be done for his heart, and they do not desire to prolong his . Note -- - Patient not transferring to in hospice and will continue as comfort care under the hospitalist. Palliative will continue to follow and assist with symptom management, Palliative-CN HPI - Data of Consult Requesting Physician: Julian Layton Primary Care Provider: Prakash Couch, DO - Consult Narrative History of present illness: Mr. Delcid is a 65 year old male with a history of CKD, CHF, GERD, ESRD and cardiomyopathy who is currently in the ICU. He is now dialysis dependent,and has worsening acidotic state and organ failure. Ejection fraction 10-15%. He is requiring pressors. Cardiology was consulted and have stated that pt not stable enough for [place] transfer and not a candidate for LVAD. Palliative care was consulted to assist with goals of care discussion and symptom management. Upon my visit, he is lethargic, jaundiced, and makes inappropriate statements at times. , sister n law and son is at bedside. He is comfortable and appears in no distress. They are asking about hospice care. CC: Julian Layton Past Med Surg Social Fam HX - Past Medical History Medical history: COPD, hypertension, peripheral artery disease (carotid disease) , renal disease Psychiatric history: no psych history - Past Surgical History Surgical History: carotid endarterectomy (left) - Social History Smoking Status: Current every day smoker Packs per day: 5-8 cigarettes x45 years Smokeless Tobacco Status: No Alcohol use: heavy, recent Drug use: none Medications and Allergies Guaifenesin [Mucinex] 600 mg PO 1-2XD PRN 10/07/15 [History] Multivitamin [Multi-Day Vitamins] 1 tab PO DAILY 10/08/15 [History] Calcium Acetate [Phos-LO] 667 mg PO TIDWM 30 Days 10/16/15 [Rx] Sodium Bicarbonate 650 mg PO BID 30 Days 10/16/15 [Rx] Allopurinol [Zyloprim 100 MG] 100 mg PO DAILY #30 tablet 10/20/15 [Rx] Cholecalciferol (D-3) [Vitamin D] 2,000 unit PO DAILY tablet 10/20/15 [Rx] Folic Acid 1 mg PO DAILY tablet 10/20/15 [Rx] Acetaminophen [Tylenol] 650 mg PO Q6HR PRN 09/05/16 [History] Amlodipine Besylate 10 mg PO DAILY PRN 09/05/16 [History] Ipratropium/Albuterol Neb [Duoneb] 3 ml IH Q8HR PRN 09/05/16 [History] Iron Polysaccharide Complex [Pro Fe] 180 mg PO BID 09/05/16 [History] Loratadine [Claritin] 10 mg PO DAILY 09/05/16 [History] Potassium Chloride [K-Tab ER] 20 meq PO BID 09/05/16 [History] Ranitidine HCl [Zantac] 150 mg PO HS 09/05/16 [History] Sodium Chloride 1 gm PO TID 09/05/16 [History] Allergies codeine Allergy (Verified 10/07/15 05:44) Hives ROS unobtainable: due to mental status Palliative Care-Exam - Constitutional Vitals: Temp Pulse Resp BP Pulse Ox 97.5 F L 110 16 83/60 99 09/13/16 12:00 09/13/16 15:19 09/13/16 15:29 09/13/16 15:29 09/13/16 15:29 General appearance: Present: cooperative, no acute distress - Head Head Exam: Present: normal inspection, normocephalic - Eye Eye exam: Present: scleral icterus - Respiratory Respiratory exam: Present: decreased breath sounds, CTAB - Cardiovascular Cardiovascular exam: Present: irregular rhythm - GI/Abdominal Exam GI/Abdominal exam: Present: diminished bowel sounds, soft - Neurological Exam Neurological exam: Present: alert, altered Additional comments: Oriented to name and place, lethagic and mumbling speech at times - Skin Additional comments: Jaundiced Internal Medicine - CN: Reslt - Labs CBC & Chem 7: 09/13/16 14:26 09/13/16 14:26 Labs: Short CBC 09/13/16 09/13/16 09/13/16 Range/Units 01:08 03:20 14:26 WBC 10.2 D 10.8 8.3 (4.3-11.1) K/mcL Hgb 10.2 L 10.2 L 9.4 L (12.9-16.9) g/dL Hct 32.8 L 33.6 L 28.8 L (37.5-50.1) % Plt Count 57 L 60 L 47 L (140-400) K/mcL Neutrophils # 8.4 8.4 7.5 (1.6-8.9) K/mcL BMP 09/13/16 09/13/16 09/13/16 01:08 03:20 14:26 Sodium 133 L 132 L 132 L Potassium 5.1 H 5.2 H 4.7 H Chloride 91 L 90 L 93 L Carbon Dioxide 12 L 10 L* 22 BUN 50 H D 51 H 41 H D Creatinine 5.52 H 5.85 H 4.44 H Glucose 64 L 93 198 H Calcium 8.1 L 8.0 L 7.5 L Liver Function 09/13/16 Range/Units 03:20 Total Bilirubin 2.6 H (0.2-1.2) mg/dL Direct Bilirubin 2.1 H (0.0-0.5) mg/dL AST 71 H (5-34) Units/L ALT 46 (0-55) Units/L Alkaline Phosphatase 116 (38-126) Units/L Albumin 2.7 L (3.5-5.0) g/dL - ABG Interpretation ABG results: ABG ABG pH 7.38 pH Units (7.32-7.45) 09/13/16 10:00 ABG pCO2 26 mmHg (35-45) L 09/13/16 10:00 ABG pO2 122 mmHg (85-104) H 09/13/16 10:00 ABG O2 Saturation 99 % (95-98) H 09/13/16 10:00 PT/INR, D-dimer PT 40.7 Seconds (9.4-12.1) H 09/13/16 14:26 - Impressions Impressions Insertion Tunneled Catheter 09/06/16 00:00 IMPRESSION: 1. Right internal jugular vein temporary dialysis catheter placement as discussed above. D/ / Giuseppe Chow MD / Giuseppe Chow MD Interpreting Provider: Giuseppe Chow MD Abdomen/Pelvis CT 09/13/16 00:54 IMPRESSION: 3 cm curvilinear filling defect in the apex of the left ventricle suspicious for an acute clot. Correlation with cardiac echo may be helpful. There are high-grade stenoses of the renal arteries, right greater than left. Patchy diminished enhancement of the kidneys more pronounced on the right may be on a vascular basis. Superimposed inflammatory/edematous change of pyelonephritis particularly in the upper pole of the left kidney cannot be excluded. High-grade bilateral common iliac artery stenoses. Short segment complete occlusion on the left cannot be excluded. Free fluid in the abdomen and pelvis has an attenuation greater than that of simple fluid. Complex/hemorrhagic fluid is suspected. Diffuse body edema. Sigmoid colon diverticulosis. D/ / Stevan Prado MD / Steavn Prado MD Interpreting Provider: Stevan Prado MD Chest CT 09/13/16 00:54 IMPRESSION: There is mild [id number]-[id number]-right bilateral pleural fluid and bibasilar airspace disease. Disease has increased slightly on the left. Mediastinal adenopathy has not changed significantly. There is a irregular filling defect within the cardiac apex highly suspicious for clot. Correlation with cardiac echo may be helpful. D/ / Stevan Prado MD / Stevan Prado MD Interpreting Provider: Stevan Prado MD Consult Discharge Plan - Plan Referrals: Anders James DO [Resident] - 09/25/16 4:00 pm Anatoly Dooley MD [Partnered Physician] - 10/10/16 10:10 am Palliative Quality Palliative Quality: Screen for Code Status: Yes, Screen for Goals of Care: Yes, Screen for Pain: Yes, If Pain Regimen Started, Initiate Bowel Regimen: NA, Screen for Nausea/Vomitting: Yes Code Status: 09/11/16 18:17 CODE [Resuscitation Status: Active] [RES] Routine Comment: Resuscitation Status: [id number]
[2016-09-13] MEDS ORDERED: Piperacillin/Tazobactam 3.375 GM in D5% in Water (Mini-Bag+) 100 ML IVPB SCH (16:00)
--- NOTE | 2016-09-13 16:19 | ECHO - Doppler Report ---
Limited Echo with Imaging Enhancement Agent Name: Sreekanth Delcid Date of Study: 09/13/2016 Date: 1950 Ht: 74.0 in Medical Record#: [id number] Age: 65 Wt: 204.0 lb Gender: Male BSA: 2.19 Order #: [id number] Location: [facility] Room #: 03 Reading Physician: Khadijah Lofton DO Family Services Worker: Danilo Webster [facility] Ordering Physician: Wili Cristobal MD, [facility] Primary Physician: Dennys Bach MD Indications: Evaulate for LV thrombus Impressions: There is a 1.1x1.2 sized immobile left ventricular apical thrombus. Cardiology service aware of findings. Left Ventricular Wall Motion: Rest Echo Findings The apex, apical inferior, mid inferior, basal inferior, apical anterior, mid anterior, basal anterior, apical septal, mid inferior septal, basal inferior septal, apical lateral, mid anterior lateral, basal anterior lateral, mid anterior septal, mid inferior lateral, basal anterior septal and basal inferior lateral george were hypokinetic. Findings: Study Quality * Technically adequate exam. ECG Findings * Sinus tachycardia. Left Ventricle * LVEF 10-15%. * Severe left ventricular systolic dysfunction. * There is a 1.1x1.2 sized immobile left ventricular apical thrombus. * Definity echo contrast was used. History Hypertension 09/06/16 a Previous Echo was performed. Contrast: Definity 1.3 ml in 8.7 ml of saline 4 ml. Measurements: BP: 94/ 65 2D Normal Values LA volume: Updated by Khadijah Lofton on 09/13/2016 4:15:30 PM electronically signed on 09/13/2016 4:16:11 PM with status of Final Wall Motion Dao: 1=Normal, 2=Hypokinesis, 3=Akinesis, 4=Dyskinesis, 5=Aneurysmal, 6=Hyperkinetic, X=Not Visualized (Blank)=Missing
[2016-09-13] MEDS ORDERED: *HR* Heparin 5,000 UNIT/ML VIAL ONE (17:40)
[2016-09-13] MEDS ORDERED: 0.9 % Sodium Chloride 1,000 ML ONE (17:45)
[2016-09-13] MEDS ORDERED: Albuterol 2.5 MG/3 ML NEBULIZER IH PRN (18:57)
[2016-09-13] MEDS: *HR* LORazepam 2 MG/ML VIAL IVP PRN (21:43)
[2016-09-14] MEDS: 0.9 % Sodium Chloride 1,000 ML PRIME SCH (00:08)
[2016-09-14] MEDS: *HR* FentaNYL (PF) 100 MCG/2 ML VIAL IVP PRN (04:47)
[2016-09-14] MEDS: Ipratropium/Albuterol Neb 3 ML IH SCH ×4 (04:55→21:29)
[2016-09-14] MEDS ORDERED: Levothyroxine 25 MCG TABLET PO SCH (06:30)
[2016-09-14] MEDS ORDERED: Aminoglycoside Consult 1 EACH MC ONE (07:42)
--- NOTE | 2016-09-14 07:45 | Event Note ---
Date of Encounter: 09/14/16 Time of Encounter: 07:43 - Cardiology Event Note Patient was transitioned to DNR comfort care only. Dialysis, pressors, and monitors have been removed. Appreciate palliative care recommendations. Cardiology will sign off. Please call with questions.
[2016-09-14] MEDS ORDERED: Pantoprazole 40 MG VIAL IVP SCH (09:00)
[2016-09-14] MEDS ORDERED: *HR* Digoxin 0.5 MG/2 ML AMPUL IVP SCH (09:00)
[2016-09-14] MEDS ORDERED: Folic Acid 1 MG TABLET PO SCH (09:00)
[2016-09-14] MEDS ORDERED: Atropine Sulfate 1% 40 DROP/2 ML BOTTLE SL PRN (09:36)
--- NOTE | 2016-09-14 09:41 | Palliative Progress Note ---
Date of Encounter: 09/14/16 Time of Encounter: 09:30 - Assessment and plan (1) Generalized pain Current Visit: Yes Status: Acute Assessment and plan: Continue low dose Fentanyl PRN if needed and adjust as necessary. Utilized x1 since transfer out of [facility] yesterday (2) Anxiety Current Visit: Yes Status: Acute Assessment and plan: Continue low dose IV Lorazepam. Utilized x2 last 24 hours. monitor (3) Counseling regarding advanced directives and goals of care Current Visit: Yes Status: Acute Assessment and plan: at bedside and discussed clinical status. D/W Dr. Layton patient status and he is agreeable to keep pt on his service. If pt survives weekend, can re- discuss plan early next week. Antibiotics and nonessential medications at this point will be stopped, and in agreement with this. Will allow po intake for comfort if he desires to eat and drink. Provided emotional support to . (4) Counseling regarding advanced care planning and goals of care Current Visit: Yes Status: Acute (5) Cardiogenic shock Current Visit: Yes Status: Acute (6) Cardiomyopathy Current Visit: Yes Status: Acute (7) End stage chronic kidney disease Current Visit: Yes Status: Acute (8) End stage renal disease Current Visit: Yes Status: Acute - Time Spent With Patient Total time spent is greater than 50% in coordination of care (as documented) at patient's floor/unit and/or counseling patient: 25 - 35 minutes - Subjective Interval history: Patient sleeping - does awaken when name called. Denies any pain or discomfort. states he rested fairly well during the night after medications were given. Noted 15 second periods of apnea at times. He has been pulling at femoral line. - Constitutional Vitals: Abnormal lab results RBC 3.01 M/mcL (4.19-5.50) L 09/13/16 14:26 Hgb 9.4 g/dL (12.9-16.9) L 09/13/16 14:26 Hct 28.8 % (37.5-50.1) L 09/13/16 14:26 RDW 25.2 % (11.5-14.5) H 09/13/16 14:26 Plt Count 47 K/mcL (140-400) L 09/13/16 14:26 Nucleated RBCs/100 WBC 0.2 /100 WBC (0) H 09/13/16 14:26 Platelet Estimate Decreased (Normal) L 09/13/16 14:26 Large Platelets Present (Not Present) A 09/11/16 00:23 Immature Plt Fraction 19.4 % (1.1-6.1) H 09/13/16 14:26 Polychromasia 1+ (Not Present) A 09/13/16 14:26 Hypochromasia Present (Not Present) A 09/13/16 03:20 Poikilocytosis 1+ (Not Present) A 09/13/16 14:26 Anisocytosis 3+ (Not Present) A 09/13/16 14:26 Microcytosis Present (Not Present) A 09/11/16 00:23 Macrocytosis Present (Not Present) A 09/13/16 14:26 Ovalocytes 1+ (Not Present) A 09/10/16 18:36 [place] Cells 1+ (Not Present) A 09/13/16 03:20 Acanthocytes (Spur) 1+ (Not Present) A 09/11/16 00:23 Retic Hgb Equivalent 40.0 pg (28.61-36.33) H 09/10/16 09:23 PT 40.7 Seconds (9.4-12.1) H 09/13/16 14:26 APTT 98.0 Seconds (26.0-36.0) H 09/13/16 03:20 PTT Inhibitor 107 sec (32-48) H 09/10/16 18:36 PTT Patient/Normal 1:1 71 sec (32-48) H 09/10/16 18:36 Heparin Anti-Xa, Unfract 0.28 IU/mL (0.30-0.70) L 09/07/16 03:55 ABG pCO2 26 mmHg (35-45) L 09/13/16 10:00 ABG pO2 122 mmHg (85-104) H 09/13/16 10:00 ABG HCO3 15.4 mEQ/L (21-27) L 09/13/16 10:00 ABG Total CO2 16.2 mEq/L (20-26) L 09/13/16 10:00 ABG O2 Saturation 99 % (95-98) H 09/13/16 10:00 ABG Base Excess -8.5 mEq/L (-2.0 to 3.0) L 09/13/16 10:00 VBG pH 7.31 pH Units (7.32-7.42) L 09/13/16 14:26 VBG pO2 51 mmHg (25-40) H 09/13/16 14:26 Mixed VBG pH 7.24 (7.34-7.36) L 09/13/16 01:08 Mixed VBG pCO2 32 mmHg (44-46) L 09/13/16 01:08 Mixed VBG pO2 61 mmHg (35-45) H 09/13/16 01:08 Mixed VBG Oxyhemoglobin 87.9 % (60-80) H 09/13/16 01:08 Sodium 132 mEq/L (136-145) L 09/13/16 14:26 Potassium 4.7 mEq/L (3.5-4.5) H 09/13/16 14:26 Chloride 93 mEq/L (98-109) L 09/13/16 14:26 BUN 41 mg/dL (8-26) H D 09/13/16 14:26 Creatinine 4.44 mg/dL (0.72-1.25) H 09/13/16 14:26 Est GFR ( Amer) 16 (> 60) L 09/13/16 14:26 Est GFR (Non-Af Amer) 14 (> 60) L 09/13/16 14:26 Glucose 198 mg/dL (70-99) H 09/13/16 14:26 POC Glucose 208 (58-89) H 09/13/16 11:39 Lactic Acid 7.0 mmol/L (0.5-2.2) H* 09/13/16 14:17 Calcium 7.5 mg/dL (8.6-10.8) L 09/13/16 14:26 Ionized Calcium 0.95 mmol/L (1.15-1.35) L 09/13/16 14:26 Phosphorus 7.4 mg/dL (2.3-4.7) H 09/13/16 03:20 Iron 23 mcg/dL (65-175) L 09/10/16 09:23 % Saturation 6 % (20-55) L 09/10/16 09:23 Total Bilirubin 2.6 mg/dL (0.2-1.2) H 09/13/16 03:20 Direct Bilirubin 2.1 mg/dL (0.0-0.5) H 09/13/16 03:20 AST 71 Units/L (5-34) H 09/13/16 03:20 Lactate Dehydrogenase 403 Units/L (159-327) H 09/10/16 09:23 Troponin I 0.12 ng/mL (0-0.03) H* 09/11/16 00:23 B-Natriuretic Peptide > 5000 pg/mL (0-100) H 09/11/16 00:23 Albumin 2.7 g/dL (3.5-5.0) L 09/13/16 03:20 Globulin 3.6 g/dL (2.4-3.5) H 09/13/16 03:20 Albumin/Globulin Ratio 0.8 (1.1-2.2) L 09/13/16 03:20 Vitamin B12 > 2000 pg/mL (213-816) H 09/10/16 10:45 Methylmalonic Acid 0.56 umol/L (0.00-0.40) H 09/10/16 09:23 Folate 34.0 ng/mL (7.0-31.4) H 09/10/16 10:45 TSH 5.631 mcIU/mL (0.350-4.840) H 09/10/16 09:23 Thyroxine (T4) 3.54 mcg/dL (4.87-11.72) L 09/10/16 09:23 Urine Protein 100 mg/dL (Neg-Trace) H 09/06/16 02:35 Urine Blood Moderate (Negative) H 09/06/16 02:35 Urine Microscopic RBC 3-5 per hpf (0-3) H 09/06/16 02:35 Ur Squamous Epith Cells Moderate per lpf (None-Few) H 09/06/16 02:35 Vancomycin Trough 20.7 mcg/mL (10-20) H* 09/13/16 03:20 General appearance: Present: no acute distress - Respiratory Respiratory exam: Present: decreased breath sounds, CTAB Additional comments: Respirations irregular. 15 second periods of apnea noted - Cardiovascular Cardiovascular exam: Present: tachycardia - GI/Abdominal GI/Abdominal exam: Present: diminished bowel sounds, distended, soft - Additional comments: Incontinent of urine, attends on - Extremities Exam Extremities exam: Present: normal capillary refill, normal inspection - Neurological Exam Additional comments: Sleeping when not disturbed but awakens easily. Oriented to name and place. - Skin Skin exam: Present: dry, warm Additional comments: Jaundiced Palliative Quality Palliative Quality: Screen for Code Status: Yes, Screen for Goals of Care: Yes, Screen for Pain: Yes, If Pain Regimen Started, Initiate Bowel Regimen: NA, Screen for Nausea/Vomitting: Yes Code Status: 09/11/16 18:17 CODE [Resuscitation Status: Active] [RES] Routine Comment: Resuscitation Status: [id number] [Resuscitation Status: Active] [RES] Routine Comment: Resuscitation Status: DNR-Comfort Care - Labs CBC & Chem 7: 09/13/16 14:26 09/13/16 14:26 Labs: Laboratory Results - last 24 hr 09/10/16 09/10/16 09/13/16 09:23 18:36 10:00 WBC RBC Hgb Hct MCV MCH MCHC RDW Plt Count Seg Neutrophils % Band Neutrophils % Lymphocytes % Monocytes % Neutrophils # Lymphocytes # Monocytes # Nucleated RBCs/100 WBC Platelet Estimate Immature Plt Fraction Polychromasia Poikilocytosis Anisocytosis Macrocytosis Smear Path Review See Below PT INR PTT Inhibitor 107 H PTT Patient/Normal 1:1 71 H ABG pH 7.38 ABG pCO2 26 L ABG pO2 122 H ABG HCO3 15.4 L ABG Total CO2 16.2 L ABG O2 Saturation 99 H ABG Base Excess -8.5 L VBG pH VBG pCO2 VBG pO2 VBG HCO3 Blood Gas Modality NC Inspired O2 28 Sodium Potassium Chloride Carbon Dioxide BUN Creatinine Est GFR ( Amer) Est GFR (Non-Af Amer) BUN/Creatinine Ratio Glucose POC Glucose Calculated Osmolality Lactic Acid Calcium Ionized Calcium Random Vancomycin 09/13/16 09/13/16 09/13/16 11:39 14:17 14:26 WBC RBC Hgb Hct MCV MCH MCHC RDW Plt Count Seg Neutrophils % Band Neutrophils % Lymphocytes % Monocytes % Neutrophils # Lymphocytes # Monocytes # Nucleated RBCs/100 WBC Platelet Estimate Immature Plt Fraction Polychromasia Poikilocytosis Anisocytosis Macrocytosis Smear Path Review PT INR PTT Inhibitor PTT Patient/Normal 1:1 ABG pH ABG pCO2 ABG pO2 ABG HCO3 ABG Total CO2 ABG O2 Saturation ABG Base Excess VBG pH 7.31 L VBG pCO2 47 VBG pO2 51 H VBG HCO3 23.7 Blood Gas Modality Inspired O2 Sodium Potassium Chloride Carbon Dioxide BUN Creatinine Est GFR ( Amer) Est GFR (Non-Af Amer) BUN/Creatinine Ratio Glucose POC Glucose 208 H Calculated Osmolality Lactic Acid 7.0 H* Calcium Ionized Calcium Random Vancomycin 09/13/16 09/13/16 09/13/16 14:26 14:26 14:26 WBC 8.3 RBC 3.01 L Hgb 9.4 L Hct 28.8 L MCV 95.7 MCH 31.2 MCHC 32.6 RDW 25.2 H Plt Count 47 L Seg Neutrophils % 86.0 Band Neutrophils % 4.0 Lymphocytes % 8.0 Monocytes % 2.0 Neutrophils # 7.5 Lymphocytes # 0.7 Monocytes # 0.2 Nucleated RBCs/100 WBC 0.2 H Platelet Estimate Decreased L Immature Plt Fraction 19.4 H Polychromasia 1+ A Poikilocytosis 1+ A Anisocytosis 3+ A Macrocytosis Present A Smear Path Review PT 40.7 H INR 3.6 PTT Inhibitor PTT Patient/Normal 1:1 ABG pH ABG pCO2 ABG pO2 ABG HCO3 ABG Total CO2 ABG O2 Saturation ABG Base Excess VBG pH VBG pCO2 VBG pO2 VBG HCO3 Blood Gas Modality Inspired O2 Sodium Potassium Chloride Carbon Dioxide BUN Creatinine Est GFR ( Amer) Est GFR (Non-Af Amer) BUN/Creatinine Ratio Glucose POC Glucose Calculated Osmolality Lactic Acid Calcium Ionized Calcium 0.95 L Random Vancomycin 09/13/16 09/14/16 14:26 04:55 WBC RBC Hgb Hct MCV MCH MCHC RDW Plt Count Seg Neutrophils % Band Neutrophils % Lymphocytes % Monocytes % Neutrophils # Lymphocytes # Monocytes # Nucleated RBCs/100 WBC Platelet Estimate Immature Plt Fraction Polychromasia Poikilocytosis Anisocytosis Macrocytosis Smear Path Review PT INR PTT Inhibitor PTT Patient/Normal 1:1 ABG pH ABG pCO2 ABG pO2 ABG HCO3 ABG Total CO2 ABG O2 Saturation ABG Base Excess VBG pH VBG pCO2 VBG pO2 VBG HCO3 Blood Gas Modality Inspired O2 Sodium 132 L Potassium 4.7 H Chloride 93 L Carbon Dioxide 22 BUN 41 H D Creatinine 4.44 H Est GFR ( Amer) 16 L Est GFR (Non-Af Amer) 14 L BUN/Creatinine Ratio 9 Glucose 198 H POC Glucose Calculated Osmolality 290 Lactic Acid Calcium 7.5 L Ionized Calcium Random Vancomycin 19.7 - ABG Interpretation ABG results: ABG ABG pH 7.38 pH Units (7.32-7.45) 09/13/16 10:00 ABG pCO2 26 mmHg (35-45) L 09/13/16 10:00 ABG pO2 122 mmHg (85-104) H 09/13/16 10:00 ABG O2 Saturation 99 % (95-98) H 09/13/16 10:00 PT/INR, D-dimer PT 40.7 Seconds (9.4-12.1) H 09/13/16 14:26 Consult Discharge Plan - Plan Referrals: Anedrs James DO [Resident] - 09/25/16 4:00 pm Anatoly Dooley MD [Partnered Physician] - 10/10/16 10:10 am
[2016-09-14] MEDS: Nicotine 21 MG PATCH.TD24 TD SCH (09:53)
[2016-09-14] MEDS: Budesonide/Formoterol 160/4.5 MDI IH SCH ×2 (10:53→21:29)
[2016-09-14] MEDS ORDERED: Piperacillin/Tazobactam 3.375 GM in D5% in Water (Mini-Bag+) 100 ML IVPB SCH ×2 (12:00)
--- NOTE | 2016-09-14 17:02 | Internal Med Progress Note ---
Date of Encounter: 09/14/16 Time of Encounter: 09:55 - Assessment and plan (1) Shock Current Visit: Yes Status: Acute Assessment and plan: hypotension with increased lactate in setting of severe systolic dysfunction. patient was in the ICU however after extensive evaluation and discussion with the patient ans his his code status was switched to DNR comfort care and HD was stopped along with pressors. Today I have stopped his antibiotics. Will provide comfort care and we have our palliative care team involved. D/W the patient's in detail, she expressed understanding. (2) LV (left ventricular) mural thrombus Current Visit: Yes Status: Acute (3) Systolic heart failure Current Visit: Yes Status: Acute Qualifiers: Heart failure chronicity: unspecified heart failure chronicity Qualified Code(s): I50.20 - Unspecified systolic (congestive) heart failure (4) End stage renal disease Current Visit: Yes Status: Acute (5) Fluid overload Current Visit: Yes Status: Acute Qualifiers: Hypervolemia type: other Qualified Code(s): E87.79 - Other fluid overload (6) Metabolic acidosis Current Visit: Yes Status: Chronic (7) COPD (chronic obstructive pulmonary disease) Current Visit: Yes Status: Chronic Qualifiers: COPD type: chronic bronchitis Chronic bronchitis type: simple Qualified Code(s): J41.0 - Simple chronic bronchitis (8) HTN (hypertension) Current Visit: Yes Status: Chronic Qualifiers: Hypertension type: essential hypertension Qualified Code(s): I10 - Essential (primary) hypertension (9) Anemia Current Visit: No Status: Acute Qualifiers: Anemia type: unspecified type Qualified Code(s): D64.9 - Anemia, unspecified (10) Thrombocytopenia Current Visit: Yes Status: Acute - Subjective Interval history: does not seem in pain, his at bedside. no fever. hypotensive. - Constitutional Vitals: Temp Pulse Resp BP Pulse Ox 97.5 F L 97 18 83/55 99 09/14/16 06:47 09/14/16 06:47 09/14/16 16:17 09/14/16 06:47 09/14/16 16:17 General appearance: Present: A&O X 2, no acute distress, loss of weight - Head Head exam: Present: atraumatic, normocephalic - Eye Eye exam: Present: PERRL, conjuntiva pink, sclera anicteric Pupils: Present: PERRL - Neck Neck exam general surgery: Present: supple, trachea midline. Absent: lymphadenopathy - Respiratory Respiratory exam: Present: decreased breath sounds. Absent: accessory muscle use, rales, rhonchi, wheezes - Cardiovascular Cardiovascular exam: Present: RRR, +S1, +S2. Absent: diastolic murmur, gallop, rubs, systolic murmur - GI/Abdominal GI/Abdominal exam: Present: normal bowel sounds, soft, no peritoneal signs. Absent: distended, tenderness - Extremities Exam Extremities exam: Present: warm, radial pulses palpable and symetrical. Absent : calf tenderness, cyanotic, pedal edema - Neurological Exam Neurological exam: Present: CN II-XII intact, oriented X3, no focal deficits. Absent: pronater drift, facial droop, speech deficit - Skin Skin exam: Present: dry, intact Internal Medicine: Result - Labs CBC & Chem 7: 09/13/16 14:26 09/13/16 14:26 - ABG Interpretation ABG results: ABG ABG pH 7.38 pH Units (7.32-7.45) 09/13/16 10:00 ABG pCO2 26 mmHg (35-45) L 09/13/16 10:00 ABG pO2 122 mmHg (85-104) H 09/13/16 10:00 ABG O2 Saturation 99 % (95-98) H 09/13/16 10:00 PT/INR, D-dimer PT 40.7 Seconds (9.4-12.1) H 09/13/16 14:26 Consult Discharge Plan - Plan Referrals: Anders James DO [Resident] - 09/25/16 4:00 pm Anatoly Dooley MD [Partnered Physician] - 10/10/16 10:10 am
[2016-09-15] MEDS: Ipratropium/Albuterol Neb 3 ML IH SCH ×4 (04:59→22:00)
[2016-09-15] MEDS: Nicotine 21 MG PATCH.TD24 TD SCH (07:31)
[2016-09-15] MEDS ORDERED: *HR* OxyCODONE Immed Rel 5 MG TABLET PO PRN (09:53)
--- NOTE | 2016-09-15 10:08 | Palliative Progress Note ---
Date of Encounter: 09/15/16 Time of Encounter: 10:00 - Assessment and plan (1) Generalized pain Current Visit: Yes Status: Acute Assessment and plan: Low dose Fentanyl if needed. Much more alert and interactive today, will add oral Oxycodone for moderate pain. He has only taken liquids and nursing has concern for po medications, will give in liquid form. (2) Anxiety Current Visit: Yes Status: Acute Assessment and plan: Continue low dose Lorazepam PRN. (3) Counseling regarding advanced directives and goals of care Current Visit: Yes Status: Acute Assessment and plan: Patient looks much better today and is much more alert. Taking po fluids. This may be a "rally". D/W Dr. Layton. Will re-evaluate tomorrow am and may need to re-discuss goals of care. Cardiology and nephrology have signed off case, but may need re-consulted if pt still stable and desires further intervention. Patient is aware however, that he is not a candidate for LVAD. (4) Counseling regarding advanced care planning and goals of care Current Visit: Yes Status: Acute (5) Cardiogenic shock Current Visit: Yes Status: Acute (6) Cardiomyopathy Current Visit: Yes Status: Acute (7) End stage chronic kidney disease Current Visit: Yes Status: Acute (8) End stage renal disease Current Visit: Yes Status: Acute - Time Spent With Patient Total time spent is greater than 50% in coordination of care (as documented) at patient's floor/unit and/or counseling patient: 25 - 35 minutes - Subjective Interval history: Patient is awake and alert and oriented to name and place. Does not recall much of hospital events and I discussed his hospital course. Taking po fluids and ice chips, does not desire solid foods at this time. C/o itching all over. Appears slightly dyspneic to observation, but denies feeling short of breath. , sister n law, and son at bedside. - Constitutional Vitals: Abnormal lab results RBC 3.01 M/mcL (4.19-5.50) L 09/13/16 14:26 Hgb 9.4 g/dL (12.9-16.9) L 09/13/16 14:26 Hct 28.8 % (37.5-50.1) L 09/13/16 14:26 RDW 25.2 % (11.5-14.5) H 09/13/16 14:26 Plt Count 47 K/mcL (140-400) L 09/13/16 14:26 Nucleated RBCs/100 WBC 0.2 /100 WBC (0) H 09/13/16 14:26 Platelet Estimate Decreased (Normal) L 09/13/16 14:26 Large Platelets Present (Not Present) A 09/11/16 00:23 Immature Plt Fraction 19.4 % (1.1-6.1) H 09/13/16 14:26 Polychromasia 1+ (Not Present) A 09/13/16 14:26 Hypochromasia Present (Not Present) A 09/13/16 03:20 Poikilocytosis 1+ (Not Present) A 09/13/16 14:26 Anisocytosis 3+ (Not Present) A 09/13/16 14:26 Microcytosis Present (Not Present) A 09/11/16 00:23 Macrocytosis Present (Not Present) A 09/13/16 14:26 Ovalocytes 1+ (Not Present) A 09/10/16 18:36 [place] Cells 1+ (Not Present) A 09/13/16 03:20 Acanthocytes (Spur) 1+ (Not Present) A 09/11/16 00:23 Retic Hgb Equivalent 40.0 pg (28.61-36.33) H 09/10/16 09:23 PT 40.7 Seconds (9.4-12.1) H 09/13/16 14:26 APTT 98.0 Seconds (26.0-36.0) H 09/13/16 03:20 PTT Inhibitor 107 sec (32-48) H 09/10/16 18:36 PTT Patient/Normal 1:1 71 sec (32-48) H 09/10/16 18:36 Heparin Anti-Xa, Unfract 0.28 IU/mL (0.30-0.70) L 09/07/16 03:55 ABG pCO2 26 mmHg (35-45) L 09/13/16 10:00 ABG pO2 122 mmHg (85-104) H 09/13/16 10:00 ABG HCO3 15.4 mEQ/L (21-27) L 09/13/16 10:00 ABG Total CO2 16.2 mEq/L (20-26) L 09/13/16 10:00 ABG O2 Saturation 99 % (95-98) H 09/13/16 10:00 ABG Base Excess -8.5 mEq/L (-2.0 to 3.0) L 09/13/16 10:00 VBG pH 7.31 pH Units (7.32-7.42) L 09/13/16 14:26 VBG pO2 51 mmHg (25-40) H 09/13/16 14:26 Mixed VBG pH 7.24 (7.34-7.36) L 09/13/16 01:08 Mixed VBG pCO2 32 mmHg (44-46) L 09/13/16 01:08 Mixed VBG pO2 61 mmHg (35-45) H 09/13/16 01:08 Mixed VBG Oxyhemoglobin 87.9 % (60-80) H 09/13/16 01:08 Sodium 132 mEq/L (136-145) L 09/13/16 14:26 Potassium 4.7 mEq/L (3.5-4.5) H 09/13/16 14:26 Chloride 93 mEq/L (98-109) L 09/13/16 14:26 BUN 41 mg/dL (8-26) H D 09/13/16 14:26 Creatinine 4.44 mg/dL (0.72-1.25) H 09/13/16 14:26 Est GFR ( Amer) 16 (> 60) L 09/13/16 14:26 Est GFR (Non-Af Amer) 14 (> 60) L 09/13/16 14:26 Glucose 198 mg/dL (70-99) H 09/13/16 14:26 POC Glucose 208 (58-89) H 09/13/16 11:39 Lactic Acid 7.0 mmol/L (0.5-2.2) H* 09/13/16 14:17 Calcium 7.5 mg/dL (8.6-10.8) L 09/13/16 14:26 Ionized Calcium 0.95 mmol/L (1.15-1.35) L 09/13/16 14:26 Phosphorus 7.4 mg/dL (2.3-4.7) H 09/13/16 03:20 Iron 23 mcg/dL (65-175) L 09/10/16 09:23 % Saturation 6 % (20-55) L 09/10/16 09:23 Total Bilirubin 2.6 mg/dL (0.2-1.2) H 09/13/16 03:20 Direct Bilirubin 2.1 mg/dL (0.0-0.5) H 09/13/16 03:20 AST 71 Units/L (5-34) H 09/13/16 03:20 Lactate Dehydrogenase 403 Units/L (159-327) H 09/10/16 09:23 Troponin I 0.12 ng/mL (0-0.03) H* 09/11/16 00:23 B-Natriuretic Peptide > 5000 pg/mL (0-100) H 09/11/16 00:23 Albumin 2.7 g/dL (3.5-5.0) L 09/13/16 03:20 Globulin 3.6 g/dL (2.4-3.5) H 09/13/16 03:20 Albumin/Globulin Ratio 0.8 (1.1-2.2) L 09/13/16 03:20 Vitamin B12 > 2000 pg/mL (213-816) H 09/10/16 10:45 Methylmalonic Acid 0.56 umol/L (0.00-0.40) H 09/10/16 09:23 Folate 34.0 ng/mL (7.0-31.4) H 09/10/16 10:45 TSH 5.631 mcIU/mL (0.350-4.840) H 09/10/16 09:23 Thyroxine (T4) 3.54 mcg/dL (4.87-11.72) L 09/10/16 09:23 Urine Protein 100 mg/dL (Neg-Trace) H 09/06/16 02:35 Urine Blood Moderate (Negative) H 09/06/16 02:35 Urine Microscopic RBC 3-5 per hpf (0-3) H 09/06/16 02:35 Ur Squamous Epith Cells Moderate per lpf (None-Few) H 09/06/16 02:35 Vancomycin Trough 20.7 mcg/mL (10-20) H* 09/13/16 03:20 General appearance: Present: no acute distress - Respiratory Respiratory exam: Present: decreased breath sounds, CTAB - Cardiovascular Cardiovascular exam: Present: tachycardia - GI/Abdominal GI/Abdominal exam: Present: diminished bowel sounds, distended, soft - Extremities Exam Additional comments: Some blistering to left lower extremity - Neurological Exam Neurological exam: Present: alert, strengths equal and symetr throughout Additional comments: Oriented to name and place, inappropriate statements at times. - Skin Skin exam: Present: dry, warm Additional comments: Slightly jaundiced Palliative Quality Palliative Quality: Screen for Code Status: Yes, Screen for Goals of Care: Yes, Screen for Pain: Yes, If Pain Regimen Started, Initiate Bowel Regimen: NA, Screen for Nausea/Vomitting: Yes Code Status: 09/11/16 18:17 CODE [Resuscitation Status: Active] [RES] Routine Comment: Resuscitation Status: [id number] CODE [Resuscitation Status: Active] [RES] Routine Comment: Resuscitation Status: DNR-Comfort Care - Labs CBC & Chem 7: 09/13/16 14:26 09/13/16 14:26 Labs: Laboratory Results - last 24 hr 09/15/16 04:42 Random Vancomycin 18.0 - ABG Interpretation ABG results: ABG ABG pH 7.38 pH Units (7.32-7.45) 09/13/16 10:00 ABG pCO2 26 mmHg (35-45) L 09/13/16 10:00 ABG pO2 122 mmHg (85-104) H 09/13/16 10:00 ABG O2 Saturation 99 % (95-98) H 09/13/16 10:00 PT/INR, D-dimer PT 40.7 Seconds (9.4-12.1) H 09/13/16 14:26 Consult Discharge Plan - Plan Referrals: Anders James DO [Resident] - 09/25/16 4:00 pm Anatoly Dooley MD [Partnered Physician] - 10/10/16 10:10 am
[2016-09-15] MEDS: Ammonium Lactate 30 APPL/225 GM BOTTLE TP SCH ×2 (11:00→22:20)
[2016-09-15] MEDS: Budesonide/Formoterol 160/4.5 MDI IH SCH ×2 (11:01→22:01)
--- NOTE | 2016-09-15 12:20 | Internal Med Progress Note ---
Date of Encounter: 09/15/16 Time of Encounter: 10:30 - Assessment and plan (1) Shock Current Visit: Yes Status: Acute Assessment and plan: hypotension with increased lactate in setting of severe systolic dysfunction. patient was in the ICU however after extensive evaluation and discussion with the patient ans his his code status was switched to DNR comfort care and HD was stopped along with pressors. His antibiotics we stopped yesterday. Will provide comfort care and we have our palliative care team involved. Doing clinically better today. We will reassess clinically tomorrow, Might need to re -discuss goals of care if improvement continues. (2) LV (left ventricular) mural thrombus Current Visit: Yes Status: Acute (3) Systolic heart failure Current Visit: Yes Status: Acute Qualifiers: Heart failure chronicity: unspecified heart failure chronicity Qualified Code(s): I50.20 - Unspecified systolic (congestive) heart failure (4) End stage renal disease Current Visit: Yes Status: Acute (5) Fluid overload Current Visit: Yes Status: Acute Qualifiers: Hypervolemia type: other Qualified Code(s): E87.79 - Other fluid overload (6) Metabolic acidosis Current Visit: Yes Status: Chronic (7) COPD (chronic obstructive pulmonary disease) Current Visit: Yes Status: Chronic Qualifiers: COPD type: chronic bronchitis Chronic bronchitis type: simple Qualified Code(s): J41.0 - Simple chronic bronchitis (8) HTN (hypertension) Current Visit: Yes Status: Chronic Qualifiers: Hypertension type: essential hypertension Qualified Code(s): I10 - Essential (primary) hypertension (9) Anemia Current Visit: No Status: Acute Qualifiers: Anemia type: unspecified type Qualified Code(s): D64.9 - Anemia, unspecified (10) Thrombocytopenia Current Visit: Yes Status: Acute - Subjective Interval history: does not seem in pain, his at bedside. Patient looks much better today, he is very talkative and not in distress. no fever. hypotensive. - Constitutional Vitals: Temp Pulse Resp BP Pulse Ox 97.7 F 94 20 84/55 97 09/15/16 04:32 09/15/16 04:32 09/15/16 11:03 09/15/16 04:32 09/15/16 11:03 General appearance: Present: cooperative, A&O X 3, pleasant, no acute distress, loss of weight Exam: pale - Head Head exam: Present: atraumatic, normocephalic - Eye Eye exam: Present: PERRL, conjuntiva pink, sclera anicteric Pupils: Present: PERRL - Neck Neck exam general surgery: Present: supple, trachea midline. Absent: lymphadenopathy - Respiratory Respiratory exam: Present: decreased breath sounds. Absent: accessory muscle use, rales, rhonchi, wheezes - Cardiovascular Cardiovascular exam: Present: RRR, +S1, +S2. Absent: diastolic murmur, gallop, rubs, systolic murmur - GI/Abdominal GI/Abdominal exam: Present: normal bowel sounds, soft, no peritoneal signs. Absent: distended, tenderness Additional comments: ascites - Extremities Exam Extremities exam: Present: pedal edema, warm, radial pulses palpable and symetrical. Absent: calf tenderness, cyanotic - Neurological Exam Neurological exam: Present: CN II-XII intact, oriented X3, no focal deficits. Absent: pronater drift, facial droop, speech deficit - Skin Skin exam: Present: dry, intact Internal Medicine: Result - Labs CBC & Chem 7: 09/13/16 14:26 09/13/16 14:26 - ABG Interpretation ABG results: ABG ABG pH 7.38 pH Units (7.32-7.45) 09/13/16 10:00 ABG pCO2 26 mmHg (35-45) L 09/13/16 10:00 ABG pO2 122 mmHg (85-104) H 09/13/16 10:00 ABG O2 Saturation 99 % (95-98) H 09/13/16 10:00 PT/INR, D-dimer PT 40.7 Seconds (9.4-12.1) H 09/13/16 14:26 Consult Discharge Plan - Plan Referrals: Anders James DO [Resident] - 09/25/16 4:00 pm Anatoly Dooley MD [Partnered Physician] - 10/10/16 10:10 am
[2016-09-15] MEDS: *HR* LORazepam 2 MG/ML VIAL IVP PRN ×2 (20:35→23:33)
[2016-09-15] MEDS: OxyCODONE CONC 5 MG/0.25 ML ORAL.SYG PO PRN (20:36)
[2016-09-15] MEDS: *HR* FentaNYL (PF) 100 MCG/2 ML VIAL IVP PRN (22:07)
[2016-09-15] MEDS ORDERED: *HR* HYDROmorphone (PF) 1 MG/ML SYRINGE IVP PRN (23:14)
[2016-09-16] MEDS: *HR* FentaNYL (PF) 100 MCG/2 ML VIAL IVP PRN ×3 (01:27→14:24)
[2016-09-16] MEDS: *HR* LORazepam 2 MG/ML VIAL IVP PRN ×6 (01:27→21:32)
[2016-09-16] MEDS: Ipratropium/Albuterol Neb 3 ML IH SCH ×4 (04:40→21:12)
[2016-09-16] MEDS: Nicotine 21 MG PATCH.TD24 TD SCH (09:19)
--- NOTE | 2016-09-16 09:33 | Palliative Progress Note ---
Date of Encounter: 09/16/16 Time of Encounter: 09:00 - Assessment and plan (1) Generalized pain Current Visit: No Status: Acute Assessment and plan: Patient currently resting comfortably. Patient with end stage renal stage renal dx and EF 10%. No candidate for further medical intervention. Patient is comfort care. Received Fentanyl x 1 dose in past 24 hrs. effective. Patient nonverbal and frail. PRN Oxycodone as well with no doses on past 24 hrs. (2) Counseling regarding advanced care planning and goals of care Current Visit: Yes Status: Acute Assessment and plan: Sulema at bedside. Patent apparently had episode of awareness and clarity yesterday and was able to consume small amount of po liquid. This AM patient is nonverbal, doesn't open his eyes, moans when feet are palpated. Patient is DNRCC - Comfort care and agrees to continue comfort care. All medical therapies have been stopped and comfort care with regards to wound care are to be continued. Patient is frail, skin is cool and bilateral feet are cool. Discussed patient prognosis in regards to no dialysis and no food consumption. is aware and reports that patients brother will be visiting this afternoon. Will continue comfort care with meds, turning, hygiene and mouth care. Will provide family support as needed. (3) Anxiety Current Visit: No Status: Acute Assessment and plan: at bedside reports one bout of anxiety and restlessness last night. Patient receiving ativan as needed and it has been effective. Will continue to monitor. (4) End stage renal disease Current Visit: Yes Status: Acute (5) COPD (chronic obstructive pulmonary disease) Current Visit: Yes Status: Chronic Qualifiers: COPD type: chronic bronchitis Chronic bronchitis type: simple Qualified Code(s): J41.0 - Simple chronic bronchitis (6) Cardiogenic shock Current Visit: Yes Status: Acute - Time Spent With Patient Total time spent is greater than 50% in coordination of care (as documented) at patient's floor/unit and/or counseling patient: 25 - 35 minutes - Subjective Interval history: at bedside, patient resting quietly. Eyes closed, doesn't respond to name. Fails to open his eyes or speak. Respirations easy. reports that he rested well last pm and had one bought of restlessness. Chart reviewed and assessment complete. - Constitutional Vitals: Abnormal lab results RBC 3.01 M/mcL (4.19-5.50) L 09/13/16 14:26 Hgb 9.4 g/dL (12.9-16.9) L 09/13/16 14:26 Hct 28.8 % (37.5-50.1) L 09/13/16 14: RDW 25.2 % (11.5-14.5) H 09/13/16 14:26 Plt Count 47 K/mcL (140-400) L 09/13/16 14:26 Nucleated RBCs/100 WBC 0.2 /100 WBC (0) H 09/13/16 14:26 Platelet Estimate Decreased (Normal) L 09/13/16 14: Large Platelets Present (Not Present) A 09/11/16 00:23 Immature Plt Fraction 19.4 % (1.1-6.1) H 09/13/16 14:26 Polychromasia 1+ (Not Present) A 09/13/16 14:26 Hypochromasia Present (Not Present) A 09/13/16 03:20 Poikilocytosis 1+ (Not Present) A 09/13/16 14:26 Anisocytosis 3+ (Not Present) A 09/13/16 14:26 Microcytosis Present (Not Present) A 09/11/16 00:23 Macrocytosis Present (Not Present) A 09/13/16 14:26 Ovalocytes 1+ (Not Present) A 09/10/16 18:[address] [place] [address] Cells 1+ (Not Present) A 09/13/16 03:20 Acanthocytes (Spur) 1+ (Not Present) A 09/11/16 00:23 Retic Hgb Equivalent 40.0 pg (28.61-36.33) H 09/10/16 09:23 PT 40.7 Seconds (9.4-12.1) H 09/13/16 14:26 APTT 98.0 Seconds (26.0-36.0) H 09/13/16 03:20 PTT Inhibitor 107 sec (32-48) H 09/10/16 18:36 PTT Patient/Normal 1:1 71 sec (32-48) H 09/10/16 18:36 Heparin Anti-Xa, Unfract 0.28 IU/mL (0.30-0.70) L 09/07/16 03:55 ABG pCO2 26 mmHg (35-45) L 09/13/16 10:00 ABG pO2 122 mmHg (85-104) H 09/13/16 10:00 ABG HCO3 15.4 mEQ/L (21-27) L 09/13/16 10:00 ABG Total CO2 16.2 mEq/L (20-26) L 09/13/16 10:00 ABG O2 Saturation 99 % (95-98) H 09/13/16 10:00 ABG Base Excess -8.5 mEq/L (-2.0 to 3.0) L 09/13/16 10:00 VBG pH 7.31 pH Units (7.32-7.42) L 09/13/16 14:26 VBG pO2 51 mmHg (25-40) H 09/13/16 14:26 Mixed VBG pH 7.24 (7.34-7.36) L 09/13/16 01:08 Mixed VBG pCO2 32 mmHg (44-46) L 09/13/16 01:08 Mixed VBG pO2 61 mmHg (35-45) H 09/13/16 01:08 Mixed VBG Oxyhemoglobin 87.9 % (60-80) H 09/13/16 01:08 Sodium 132 mEq/L (136-145) L 09/13/16 14:26 Potassium 4.7 mEq/L (3.5-4.5) H 09/13/16 14:26 Chloride 93 mEq/L (98-109) L 09/13/16 14:26 BUN 41 mg/dL (8-26) H D 09/13/16 14:26 Creatinine 4.44 mg/dL (0.72-1.25) H 09/13/16 14:26 Est GFR ( Amer) 16 (> 60) L 09/13/16 14:26 Est GFR (Non-Af Amer) 14 (> 60) L 09/13/16 14:26 Glucose 198 mg/dL (70-99) H 09/13/16 14:26 POC Glucose 208 (58-89) H 09/13/16 11:39 Lactic Acid 7.0 mmol/L (0.5-2.2) H* 09/13/16 14:17 Calcium 7.5 mg/dL (8.6-10.8) L 09/13/16 14:26 Ionized Calcium 0.95 mmol/L (1.15-1.35) L 09/13/16 14:26 Phosphorus 7.4 mg/dL (2.3-4.7) H 09/13/16 03:20 Iron 23 mcg/dL (65-175) L 09/10/16 09:23 % Saturation 6 % (20-55) L 09/10/16 09:23 Total Bilirubin 2.6 mg/dL (0.2-1.2) H 09/13/16 03:20 Direct Bilirubin 2.1 mg/dL (0.0-0.5) H 09/13/16 03:20 AST 71 Units/L (5-34) H 09/13/16 03:20 Lactate Dehydrogenase 403 Units/L (159-327) H 09/10/16 09:23 Troponin I 0.12 ng/mL (0-0.03) H* 09/11/16 00:23 B-Natriuretic Peptide > 5000 pg/mL (0-100) H 09/11/16 00:23 Albumin 2.7 g/dL (3.5-5.0) L 09/13/16 03:20 Globulin 3.6 g/dL (2.4-3.5) H 09/13/16 03:20 Albumin/Globulin Ratio 0.8 (1.1-2.2) L 09/13/16 03:20 Vitamin B12 > 2000 pg/mL (213-816) H 09/10/16 10:45 Methylmalonic Acid 0.56 umol/L (0.00-0.40) H 09/10/16 09:23 Folate 34.0 ng/mL (7.0-31.4) H 09/10/16 10:45 TSH 5.631 mcIU/mL (0.350-4.840) H 09/10/16 09:23 Thyroxine (T4) 3.54 mcg/dL (4.87-11.72) L 09/10/16 09:23 Urine Protein 100 mg/dL (Neg-Trace) H 09/06/16 02:35 Urine Blood Moderate (Negative) H 09/06/16 02:35 Urine Microscopic RBC 3-5 per hpf (0-3) H 09/06/16 02:35 Ur Squamous Epith Cells Moderate per lpf (None-Few) H 09/06/16 02:35 Vancomycin Trough 20.7 mcg/mL (10-20) H* 09/13/16 03:20 - Head Head exam: Present: atraumatic, normal inspection, normocephalic - Eye Eye exam: Present: PERRL, scleral icterus - ENT ENT exam: Present: mucous membranes moist - Neck Neck exam: Present: normal inspection - Respiratory Respiratory exam: Present: CTAB - Cardiovascular Cardiovascular exam: Present: RRR, +S1, +S2 - Expanded Cardiovascular Exam Peripheral pulses: 1+: Femoral (L) PM, Femoral (R) PM, Posterior Tibialis (L), Posterior Tibialis (R), Dorsalis Pedis (L) PM, Dorsalis Pedis (R) PM, 2+: Carotid (L) PM, Carotid (R) PM, Radial (L), Radial (R) - GI/Abdominal GI/Abdominal exam: Present: distended, hypoactive bowel sounds, soft - Rectal Rectal exam: Present: deferred - Extremities Exam Extremities exam: Present: tenderness (bilateral toes cool, DP 1+. ) - Back Exam Back exam: Present: normal inspection - Neurological Exam Neurological exam: Present: altered (minimal awareness, eyes closed, no speech. Doesn't follow commands. ) - Psychiatric Psychiatric exam: Present: flat affect - Skin Skin exam: Present: pallor (cool, slight jaundice, dressing to buttocks and left lower calf area. ) Palliative Quality Palliative Quality: Screen for Code Status: Yes, Screen for Goals of Care: Yes, Screen for Pain: Yes, If Pain Regimen Started, Initiate Bowel Regimen: NA, Screen for Nausea/Vomitting: Yes Code Status: 09/11/16 18:17 CODE [Resuscitation Status: Active] [RES] Routine Comment: Resuscitation Status: [id number] CODE [Resuscitation Status: Active] [RES] Routine Comment: Resuscitation Status: DNR-Comfort Care - Labs CBC & Chem 7: 09/13/16 14:26 09/13/16 14:26 - ABG Interpretation ABG results: ABG ABG pH 7.38 pH Units (7.32-7.45) 09/13/16 10:00 ABG pCO2 26 mmHg (35-45) L 09/13/16 10:00 ABG pO2 122 mmHg (85-104) H 09/13/16 10:00 ABG O2 Saturation 99 % (95-98) H 09/13/16 10:00 PT/INR, D-dimer PT 40.7 Seconds (9.4-12.1) H 09/13/16 14:26 Consult Discharge Plan - Plan Referrals: Anders James DO [Resident] - 09/25/16 4:00 pm Anatoly Dooley MD [Partnered Physician] - 10/10/16 10:10 am
[2016-09-16] MEDS: OxyCODONE CONC 5 MG/0.25 ML ORAL.SYG PO PRN ×2 (10:21→20:31)
[2016-09-16] MEDS: Budesonide/Formoterol 160/4.5 MDI IH SCH ×2 (10:54→21:12)
[2016-09-16] MEDS: Ammonium Lactate 30 APPL/225 GM BOTTLE TP SCH (16:03)
--- NOTE | 2016-09-16 17:15 | Internal Med Progress Note ---
Date of Encounter: 09/16/16 Time of Encounter: 09:35 - Assessment and plan (1) Shock Current Visit: Yes Status: Acute Assessment and plan: hypotension with increased lactate in setting of severe systolic dysfunction. patient was in the ICU however after extensive evaluation and discussion with the patient ans his his code status was switched to DNR comfort care and HD was stopped along with pressors. His antibiotics we stopped also. Will provide comfort care and we have our palliative care team involved. D/W patient' s . Poor prognosis. (2) LV (left ventricular) mural thrombus Current Visit: Yes Status: Acute (3) Systolic heart failure Current Visit: Yes Status: Acute Qualifiers: Heart failure chronicity: unspecified heart failure chronicity Qualified Code(s): I50.20 - Unspecified systolic (congestive) heart failure (4) End stage renal disease Current Visit: Yes Status: Acute (5) Fluid overload Current Visit: Yes Status: Acute Qualifiers: Hypervolemia type: other Qualified Code(s): E87.79 - Other fluid overload (6) Metabolic acidosis Current Visit: Yes Status: Chronic (7) COPD (chronic obstructive pulmonary disease) Current Visit: Yes Status: Chronic Qualifiers: COPD type: chronic bronchitis Chronic bronchitis type: simple Qualified Code(s): J41.0 - Simple chronic bronchitis (8) HTN (hypertension) Current Visit: Yes Status: Chronic Qualifiers: Hypertension type: essential hypertension Qualified Code(s): I10 - Essential (primary) hypertension (9) Anemia Current Visit: No Status: Acute Qualifiers: Anemia type: unspecified type Qualified Code(s): D64.9 - Anemia, unspecified (10) Thrombocytopenia Current Visit: Yes Status: Acute - Subjective Interval history: does not seem in pain, his at bedside. no fever. hypotensive. - Constitutional Vitals: Temp Pulse Resp BP Pulse Ox 97.4 F L 94 16 92/64 97 09/16/16 15:37 09/16/16 15:37 09/16/16 16:41 09/16/16 15:37 09/16/16 16:41 General appearance: Present: A&O X 1, no acute distress, loss of weight - Head Head exam: Present: atraumatic, normocephalic - Eye Eye exam: Present: PERRL, conjuntiva pink, sclera anicteric Pupils: Present: PERRL - Neck Neck exam general surgery: Present: supple, trachea midline. Absent: lymphadenopathy - Respiratory Respiratory exam: Present: decreased breath sounds. Absent: accessory muscle use, rales, rhonchi, wheezes - Cardiovascular Cardiovascular exam: Present: RRR, +S1, +S2. Absent: diastolic murmur, gallop, rubs, systolic murmur - GI/Abdominal GI/Abdominal exam: Present: normal bowel sounds, soft, no peritoneal signs. Absent: distended, tenderness Additional comments: ascites - Extremities Exam Extremities exam: Present: pedal edema, warm, radial pulses palpable and symetrical. Absent: calf tenderness, cyanotic - Neurological Exam Neurological exam: Present: CN II-XII intact, oriented X3, no focal deficits. Absent: pronater drift, facial droop, speech deficit - Skin Skin exam: Present: dry, intact Internal Medicine: Result - Labs CBC & Chem 7: 09/13/16 14:26 09/13/16 14:26 - ABG Interpretation ABG results: ABG ABG pH 7.38 pH Units (7.32-7.45) 09/13/16 10:00 ABG pCO2 26 mmHg (35-45) L 09/13/16 10:00 ABG pO2 122 mmHg (85-104) H 09/13/16 10:00 ABG O2 Saturation 99 % (95-98) H 09/13/16 10:00 PT/INR, D-dimer PT 40.7 Seconds (9.4-12.1) H 09/13/16 14:26 - Impressions Impressions Abdomen/Pelvis CT 09/13/16 00:54 IMPRESSION: 3 cm curvilinear filling defect in the apex of the left ventricle suspicious for an acute clot. Correlation with cardiac echo may be helpful. There are high-grade stenoses of the renal arteries, right greater than left. Patchy diminished enhancement of the kidneys more pronounced on the right may be on a vascular basis. Superimposed inflammatory/edematous change of pyelonephritis particularly in the upper pole of the left kidney cannot be excluded. High-grade bilateral common iliac artery stenoses. Short segment complete occlusion on the left cannot be excluded. Free fluid in the abdomen and pelvis has an attenuation greater than that of simple fluid. Complex/hemorrhagic fluid is suspected. Diffuse body edema. Sigmoid colon diverticulosis. D/ / Stevan Prado MD / Stevan Prado MD Interpreting Provider: Stevan Prado MD Consult Discharge Plan - Plan Referrals: Anders James DO [Resident] - 09/25/16 4:00 pm Anatoly Dooley MD [Partnered Physician] - 10/10/16 10:10 am
[2016-09-17] MEDS: *HR* LORazepam 2 MG/ML VIAL IVP PRN ×5 (00:19→14:28)
[2016-09-17] MEDS: OxyCODONE CONC 5 MG/0.25 ML ORAL.SYG PO PRN ×6 (00:30→23:31)
[2016-09-17] MEDS: Ammonium Lactate 30 APPL/225 GM BOTTLE TP SCH ×3 (02:41→23:29)
[2016-09-17] MEDS: Ipratropium/Albuterol Neb 3 ML IH SCH ×4 (04:11→22:01)
[2016-09-17] MEDS: Nicotine 21 MG PATCH.TD24 TD SCH (07:38)
--- NOTE | 2016-09-17 09:12 | Palliative Progress Note ---
Date of Encounter: 09/17/16 Time of Encounter: 09:10 - Assessment and plan (1) Generalized pain Current Visit: No Status: Acute Assessment and plan: Mr. Delcid is utilizing Fentanyl and oxycodone as needed for generalized pain and dyspnea. Patient appears to respond better to oxycodone. Will schedule oxycodone every 6 hours for basal dose of pain medication. He has used a total of 4 doses in the past 24 hours, but three of the past 4 doses have been given every 4 hours. Will decrease the interval of PRN doses to accommodate the patient's needs. (2) Anxiety Current Visit: Yes Status: Acute Assessment and plan: Lorazepam as needed for anxiety. Supportive care. Family at bedside. (3) End stage renal disease Current Visit: Yes Status: Acute Assessment and plan: avoid morphine at this time due to ESRD (4) COPD (chronic obstructive pulmonary disease) Current Visit: Yes Status: Chronic Qualifiers: COPD type: chronic bronchitis Chronic bronchitis type: simple Qualified Code(s): J41.0 - Simple chronic bronchitis (5) Cardiogenic shock Current Visit: Yes Status: Acute (6) Counseling regarding advanced directives and goals of care Current Visit: Yes Status: Acute Assessment and plan: Mr. Delcid is showing signs of continued decline in health. He is having periods of apnea lasting 30-40 seconds and occuring every 2-3 minutes. He is non-verbal and does not respond to commands. Mr. Delcid has been moaning from time to time and it appears to occur more at the end of oxycodone dose. Family continues to support DNR-CC. Discussed plan of care and risks/benefits/ indications of medication changes. Given his rapid decline in health and current physical exam, he is not expected to survive lone. - Time Spent With Patient Total time spent is greater than 50% in coordination of care (as documented) at patient's floor/unit and/or counseling patient: - Subjective Interval history: Mr. Delcid is a 65-year-old male patient, unresponsive and nonverbal. His spouse reports periods of restlessness throughout the night. Mr. Delcid has periods of apnea lasting 30-40 seconds, and occurring every 2-3 minutes. The skin is cool to touch with a sallow complexion. He has utilized two doses of fentanyl and 4 doses of oxycodone over the past 24 hours for symptom management. - Constitutional Vitals: Abnormal lab results RBC 3.01 M/mcL (4.19-5.50) L 09/13/16 14:26 Hgb 9.4 g/dL (12.9-16.9) L 09/13/16 14:26 Hct 28.8 % (37.5-50.1) L 09/13/16 14:26 RDW 25.2 % (11.5-14.5) H 09/13/16 14:26 Plt Count 47 K/mcL (140-400) L 09/13/16 14:26 Nucleated RBCs/100 WBC 0.2 /100 WBC (0) H 09/13/16 14:26 Platelet Estimate Decreased (Normal) L 09/13/16 14:26 Large Platelets Present (Not Present) A 09/11/16 00:23 Immature Plt Fraction 19.4 % (1.1-6.1) H 09/13/16 14:26 Polychromasia 1+ (Not Present) A 09/13/16 14:26 Hypochromasia Present (Not Present) A 09/13/16 03:20 Poikilocytosis 1+ (Not Present) A 09/13/16 14:26 Anisocytosis 3+ (Not Present) A 09/13/16 14:26 Microcytosis Present (Not Present) A 09/11/16 00:23 Macrocytosis Present (Not Present) A 09/13/16 14:26 Ovalocytes 1+ (Not Present) A 09/10/16 18:36 Irais Cells 1+ (Not Present) A 09/13/16 03:20 Acanthocytes (Spur) 1+ (Not Present) A 09/11/16 00:23 Retic Hgb Equivalent 40.0 pg (28.61-36.33) H 09/10/16 09:23 PT 40.7 Seconds (9.4-12.1) H 09/13/16 14:26 APTT 98.0 Seconds (26.0-36.0) H 09/13/16 03:20 PTT Inhibitor 107 sec (32-48) H 09/10/16 18:36 PTT Patient/Normal 1:1 71 sec (32-48) H 09/10/16 18:36 Heparin Anti-Xa, Unfract 0.28 IU/mL (0.30-0.70) L 09/07/16 03:55 ABG pCO2 26 mmHg (35-45) L 09/13/16 10:00 ABG pO2 122 mmHg (85-104) H 09/13/16 10:00 ABG HCO3 15.4 mEQ/L (21-27) L 09/13/16 10:00 ABG Total CO2 16.2 mEq/L (20-26) L 09/13/16 10:00 ABG O2 Saturation 99 % (95-98) H 09/13/16 10:00 ABG Base Excess -8.5 mEq/L (-2.0 to 3.0) L 09/13/16 10:00 VBG pH 7.31 pH Units (7.32-7.42) L 09/13/16 14:26 VBG pO2 51 mmHg (25-40) H 09/13/16 14:26 Mixed VBG pH 7.24 (7.34-7.36) L 09/13/16 01:08 Mixed VBG pCO2 32 mmHg (44-46) L 09/13/16 01:08 Mixed VBG pO2 61 mmHg (35-45) H 09/13/16 01:08 Mixed VBG Oxyhemoglobin 87.9 % (60-80) H 09/13/16 01:08 Sodium 132 mEq/L (136-145) L 09/13/16 14:26 Potassium 4.7 mEq/L (3.5-4.5) H 09/13/16 14:26 Chloride 93 mEq/L (98-109) L 09/13/16 14:26 BUN 41 mg/dL (8-26) H D 09/13/16 14:26 Creatinine 4.44 mg/dL (0.72-1.25) H 09/13/16 14:26 Est GFR ( Amer) 16 (> 60) L 09/13/16 14:26 Est GFR (Non-Af Amer) 14 (> 60) L 09/13/16 14:26 Glucose 198 mg/dL (70-99) H 09/13/16 14:26 POC Glucose 208 (58-89) H 09/13/16 11:39 Lactic Acid 7.0 mmol/L (0.5-2.2) H* 09/13/16 14:17 Calcium 7.5 mg/dL (8.6-10.8) L 09/13/16 14:26 Ionized Calcium 0.95 mmol/L (1.15-1.35) L 09/13/16 14:26 Phosphorus 7.4 mg/dL (2.3-4.7) H 09/13/16 03:20 Iron 23 mcg/dL (65-175) L 09/10/16 09:23 % Saturation 6 % (20-55) L 09/10/16 09:23 Total Bilirubin 2.6 mg/dL (0.2-1.2) H 09/13/16 03:20 Direct Bilirubin 2.1 mg/dL (0.0-0.5) H 09/13/16 03:20 AST 71 Units/L (5-34) H 09/13/16 03:20 Lactate Dehydrogenase 403 Units/L (159-327) H 09/10/16 09:23 Troponin I 0.12 ng/mL (0-0.03) H* 09/11/16 00:23 B-Natriuretic Peptide > 5000 pg/mL (0-100) H 09/11/16 00:23 Albumin 2.7 g/dL (3.5-5.0) L 09/13/16 03:20 Globulin 3.6 g/dL (2.4-3.5) H 09/13/16 03:20 Albumin/Globulin Ratio 0.8 (1.1-2.2) L 09/13/16 03:20 Vitamin B12 > 2000 pg/mL (213-816) H 09/10/16 10:45 Methylmalonic Acid 0.56 umol/L (0.00-0.40) H 09/10/16 09:23 Folate 34.0 ng/mL (7.0-31.4) H 09/10/16 10:45 TSH 5.631 mcIU/mL (0.350-4.840) H 09/10/16 09:23 Thyroxine (T4) 3.54 mcg/dL (4.87-11.72) L 09/10/16 09:23 Urine Protein 100 mg/dL (Neg-Trace) H 09/06/16 02:35 Urine Blood Moderate (Negative) H 09/06/16 02:35 Urine Microscopic RBC 3-5 per hpf (0-3) H 09/06/16 02:35 Ur Squamous Epith Cells Moderate per lpf (None-Few) H 09/06/16 02:35 Vancomycin Trough 20.7 mcg/mL (10-20) H* 09/13/16 03:20 General appearance: Absent: cooperative Exam: 65-year-old male patient, unresponsive, skin cool to touch,. Apnea lasting 30- 40 seconds and occurring every 2-3 minutes. Family at bedside - Eye Eye exam: Present: PERRL - ENT ENT exam: Present: mucous membranes dry - Respiratory Respiratory exam: Present: accessory muscle use (Following periods of apnea), decreased breath sounds (Shallow respirations). Absent: respiratory distress Additional comments: Shallow respirations with periods of apnea lasting 30-40 seconds and occurring every 2-3 minutes. - Cardiovascular Additional comments: Apical heart tones muffled and distant - Expanded Cardiovascular Exam Peripheral pulses: 1+: Radial (L), Radial (R) - GI/Abdominal GI/Abdominal exam: Present: soft. Absent: rigid, tenderness - Extremities Exam Additional comments: Bilateral lower extremities cool to touch - Neurological Exam Neurological exam: Absent: alert Additional comments: Altered mental status, nonverbal, unable to follow commands, moaning occasionally - Psychiatric Psychiatric exam: Present: anxious (Intermittent). Absent: agitated - Skin Additional comments: Dressing intact to left calf, skin cool to touch, skin color is sallow. Palliative Quality Palliative Quality: Screen for Code Status: Yes, Screen for Goals of Care: Yes, Screen for Pain: Yes, If Pain Regimen Started, Initiate Bowel Regimen: NA, Screen for Nausea/Vomitting: Yes Code Status: 09/11/16 18:17 CODE [Resuscitation Status: Active] [RES] Routine Comment: Resuscitation Status: [id number] CODE [Resuscitation Status: Active] [RES] Routine Comment: Resuscitation Status: DNR-Comfort Care - Labs CBC & Chem 7: 09/13/16 14:26 09/13/16 14:26 - Impressions Impressions Abdomen/Pelvis CT 09/13/16 00:54 IMPRESSION: 3 cm curvilinear filling defect in the apex of the left ventricle suspicious for an acute clot. Correlation with cardiac echo may be helpful. There are high-grade stenoses of the renal arteries, right greater than left. Patchy diminished enhancement of the kidneys more pronounced on the right may be on a vascular basis. Superimposed inflammatory/edematous change of pyelonephritis particularly in the upper pole of the left kidney cannot be excluded. High-grade bilateral common iliac artery stenoses. Short segment complete occlusion on the left cannot be excluded. Free fluid in the abdomen and pelvis has an attenuation greater than that of simple fluid. Complex/hemorrhagic fluid is suspected. Diffuse body edema. Sigmoid colon diverticulosis. D/ / Stevan Prado MD / Stevan Prado MD Interpreting Provider: Stevan Prado MD - ABG Interpretation ABG results: ABG ABG pH 7.38 pH Units (7.32-7.45) 09/13/16 10:00 ABG pCO2 26 mmHg (35-45) L 09/13/16 10:00 ABG pO2 122 mmHg (85-104) H 09/13/16 10:00 ABG O2 Saturation 99 % (95-98) H 09/13/16 10:00 PT/INR, D-dimer PT 40.7 Seconds (9.4-12.1) H 09/13/16 14:26 Consult Discharge Plan - Plan Referrals: Anders James DO [Resident] - 09/25/16 4:00 pm Anatoly Dooley MD [Partnered Physician] - 10/10/16 10:10 am
[2016-09-17] MEDS: Budesonide/Formoterol 160/4.5 MDI IH SCH ×2 (11:06→22:02)
[2016-09-17] MEDS ORDERED: OxyCODONE CONC 5 MG/0.25 ML ORAL.SYG PO SCH (12:00)
--- NOTE | 2016-09-17 13:40 | Internal Med Progress Note ---
Date of Encounter: 09/17/16 Time of Encounter: 13:37 - Subjective Interval history: Patient seen and examined at bedside. Currently on comfort measures only. Pain controlled addressed by palliative care team. Pt appears to be resting comfortably in bed without any acute distress at this time. Assessment/Plan: (1) Shock Current Visit: Yes Status: Acute Assessment and plan: Transferred from the ICU after patient and family decided to undergo comfort care measures only At this time patient being followed closely by the palliative care team and currently on pain control Prognosis grave Palliative care consultation appreciated (2) LV (left ventricular) mural thrombus Current Visit: Yes Status: Acute (3) Systolic heart failure Current Visit: Yes Status: Acute Qualifiers: Heart failure chronicity: unspecified heart failure chronicity Qualified Code(s): I50.20 - Unspecified systolic (congestive) heart failure (4) End stage renal disease Current Visit: Yes Status: Acute (5) Fluid overload Current Visit: Yes Status: Acute Qualifiers: Hypervolemia type: other Qualified Code(s): E87.79 - Other fluid overload (6) Metabolic acidosis Current Visit: Yes Status: Chronic (7) COPD (chronic obstructive pulmonary disease) Current Visit: Yes Status: Chronic Qualifiers: COPD type: chronic bronchitis Chronic bronchitis type: simple Qualified Code(s): J41.0 - Simple chronic bronchitis (8) HTN (hypertension) Current Visit: Yes Status: Chronic Qualifiers: Hypertension type: essential hypertension Qualified Code(s): I10 - Essential (primary) hypertension (9) Anemia Current Visit: No Status: Acute Qualifiers: Anemia type: unspecified type Qualified Code(s): D64.9 - Anemia, unspecified (10) Thrombocytopenia Current Visit: Yes Status: Acute - Constitutional Vitals: Temp Pulse Resp BP Pulse Ox 97.4 F L 88 28 95/57 81 09/16/16 15:37 09/17/16 08:13 09/17/16 11:07 09/17/16 08:13 09/17/16 11:07 General appearance: Present: A&O X 0, no acute distress, loss of weight - Head Head exam: Present: atraumatic, normocephalic - Eye Eye exam: Present: normal appearance, conjuntiva pink, sclera anicteric - Respiratory Respiratory exam: Absent: respiratory distress, wheezes - Cardiovascular Cardiovascular exam: Present: RRR, +S1, +S2 - GI/Abdominal GI/Abdominal exam: Present: normal bowel sounds, soft. Absent: tenderness - Extremities Exam Extremities exam: Present: warm, radial pulses palpable and symetrical. Absent : calf tenderness Internal Medicine: Result - Labs CBC & Chem 7: 09/13/16 14:26 09/13/16 14:26 - ABG Interpretation ABG results: ABG ABG pH 7.38 pH Units (7.32-7.45) 09/13/16 10:00 ABG pCO2 26 mmHg (35-45) L 09/13/16 10:00 ABG pO2 122 mmHg (85-104) H 09/13/16 10:00 ABG O2 Saturation 99 % (95-98) H 09/13/16 10:00 PT/INR, D-dimer PT 40.7 Seconds (9.4-12.1) H 09/13/16 14:26 Consult Discharge Plan - Plan Referrals: Anders James DO [Resident] - 09/25/16 4:00 pm Anatoly Dooley MD [Partnered Physician] - 10/10/16 10:10 am
[2016-09-17] MEDS ORDERED: OxyCODONE CONC 5 MG/0.25 ML ORAL.SYG PO PRN (16:58)
[2016-09-17] MEDS: OxyCODONE CONC 5 MG/0.25 ML ORAL.SYG PO SCH ×2 (17:45→21:31)
[2016-09-17] MEDS: *HR* LORazepam Oral Conc 2 MG/ML SL PRN ×2 (21:31→23:31)
[2016-09-17 23:16] VITALS: BP 73/55
[2016-09-18] MEDS: OxyCODONE CONC 5 MG/0.25 ML ORAL.SYG PO PRN (02:22)
[2016-09-18] MEDS: *HR* LORazepam Oral Conc 2 MG/ML SL PRN (02:22)
[2016-09-18] MEDS ORDERED: OxyCODONE CONC 5 MG/0.25 ML ORAL.SYG PO PRN (03:27)
[2016-09-18] MEDS ORDERED: Haloperidol Oral Conc 10 MG/5 ML UDC PO PRN (03:29)
[2016-09-18] MEDS: Ipratropium/Albuterol Neb 3 ML IH SCH ×2 (03:58→08:19)
[2016-09-18] MEDS: *HR* LORazepam Oral Conc 2 MG/ML PO PRN ×2 (03:59→06:13)
[2016-09-18] MEDS: OxyCODONE CONC 5 MG/0.25 ML ORAL.SYG PO SCH ×2 (03:59→06:14)
[2016-09-18] MEDS: Budesonide/Formoterol 160/4.5 MDI IH SCH (08:19)
--- NOTE | 2016-10-15 08:23 | Discharge Summary ---
Date of Encounter: 09/17/16 Time of Encounter: 13:27 - Discharge Diagnosis (1) Acute and chronic respiratory failure with hypoxia Priority: Primary Status: Acute (2) Cardiogenic shock Priority: Primary Status: Acute (3) DVT prophylaxis Priority: Secondary Status: Acute (4) ESRD on dialysis Priority: Secondary Status: Chronic (5) Fluid overload Priority: Primary Status: Acute Qualifiers: Hypervolemia type: other Qualified Code(s): E87.79 - Other fluid overload (6) HTN (hypertension) Priority: Secondary Status: Chronic Qualifiers: Hypertension type: essential hypertension Qualified Code(s): I10 - Essential (primary) hypertension - Discharge Medications Home Medications: Guaifenesin [Mucinex] 600 mg PO 1-2XD PRN 10/07/15 [History] Multivitamin [Multi-Day Vitamins] 1 tab PO DAILY 10/08/15 [History] Calcium Acetate [Phos-LO] 667 mg PO TIDWM 30 Days 10/16/15 [Rx] Sodium Bicarbonate 650 mg PO BID 30 Days 10/16/15 [Rx] Allopurinol [Zyloprim 100 MG] 100 mg PO DAILY #30 tablet 10/20/15 [Rx] Cholecalciferol (D-3) [Vitamin D] 2,000 unit PO DAILY tablet 10/20/15 [Rx] Folic Acid 1 mg PO DAILY tablet 10/20/15 [Rx] Acetaminophen [Tylenol] 650 mg PO Q6HR PRN 09/05/16 [History] Amlodipine Besylate 10 mg PO DAILY PRN 09/05/16 [History] Ipratropium/Albuterol Neb [Duoneb] 3 ml IH Q8HR PRN 09/05/16 [History] Iron Polysaccharide Complex [Pro Fe] 180 mg PO BID 09/05/16 [History] Loratadine [Claritin] 10 mg PO DAILY 09/05/16 [History] Potassium Chloride [K-Tab ER] 20 meq PO BID 09/05/16 [History] Ranitidine HCl [Zantac] 150 mg PO HS 09/05/16 [History] Sodium Chloride 1 gm PO TID 09/05/16 [History] Allergies/Adverse Reactions: Allergies codeine Allergy (Verified 10/07/15 05:44) Hives Date of admission: 09/05/16 19:20 Primary care physician: Prakash Couch DO Consults: 09/06/16 07:12 Consult to Interventional Radiology [CONS] Routine Consulting Provider: Radiology Interventional Cols Reason for Consult: Please evaluate for placement of a Permacath. Call Completed: Yes 09/06/16 08:56 Consult to Independent Insurance Adjuster [CONS] Routine Reason for SW Consult: services upon discharge. Please help arrange for a dialysis chair as an outpatient. Thank you. 09/07/16 08:00 Consult to Cardiology [CONS] Routine Comment: Consulting Provider: Cardiology Deidra Reason for Consult: systolic dysfunction, EF 10% Call Completed: Yes 09/09/16 15:15 Consult to Oncology Hematology [CONS] Routine Consulting Provider: Marbella Miller Reason for Consult: Thrombocytopenia Call Completed: Yes 09/11/16 10:51 Consult to Occupational Therapy [CONS] Routine Comment: Evaluate, develop and implement POC Reason for Consult: pt has became very weak Consult to Physical Therapy [CONS] Routine Comment: Evaluate, develop and implement POC Reason for Consult: pt has became very weak 09/11/16 10:53 Consult to Pulmonology [CONS] Routine Consulting Provider: [facility] Reason for Consult: bilat atelctasis, mucus plug Time Notified: 10:53 Call Completed: Yes 09/11/16 13:57 Consult to Respiratory Therapy [CONS] Routine Reason for Consult: Acapella therapy Call Completed: No 09/12/16 10:43 Consult to Independent Insurance Adjuster [CONS] Routine Reason for SW Consult: therapy rec ecf 09/13/16 11:40 Consult to Cardiology [CONS] Stat Comment: Consulting Provider: Cardiology Deidra Reason for Consult: severe cardiomyopathy and CHF, LVEF 10-15%, in shock. on dopamine and dobutamine. Dr. Cuevas spoke with Dr. Cristobal Call Completed: Yes 09/13/16 14:00 Consult to Palliative Care [CONS] Routine Comment: Consulting Provider: Palliative Care Deidra Reason for Consult: severe cardiomyopathy with low EF, on two vasopressors, too unstable to transfer. discuss goals of care. Call Completed: Yes - Patient Status Disposition: - Discharge Instructions Follow Up With: Anders James DO [Resident] - 09/25/16 4:00 pm Anatoly Dooley MD [Partnered Physician] - 10/10/16 10:10 am Hospital course: Mr. Bhavin is a 65 year old male - Time Spent with Patient Total time spent providing and/or coordinating discharge services: - Constitutional Vitals: Temp Pulse Resp BP Pulse Ox 98.0 F 78 20 73/55 87 09/17/16 23:15 09/17/16 23:15 09/17/16 23:15 09/17/16 23:15 09/17/16 23:15 General appearance: Present: A&O X 0, no acute distress, loss of weight
== END 2016-09-18 06:40 | disposition expired | DRG 286 ==
LOC: 2ANU 14:42 → EMEROO 14:42 → 2ANU 18:52 → SUATTDRO 19:20 → ICNU 09-12 18:06 → 2ANU 09-13 18:27
PROVIDERS: ADMIT Internal Medicine; ATTEND Internal Medicine
PROC: IRPERMA (2016-09-06 12:00)